=== PATIENT | female | born 1970 | race Caucasian/White ===

== ENCOUNTER 2017-05-09 09:56 | Emergency (ER) | payer BC ==
[2017-05-09] MEDS ORDERED: SODIUM CHLORIDE 0.9% 1,000 ML IV ONE (10:09)
[2017-05-09] MEDS ORDERED: ONDANSETRON 4 MG/2 ML VIAL IVP STA ×2 (10:21→12:59)
[2017-05-09] MEDS ORDERED: HYDROmorphone 1 MG/ML SYRINGE IVP STA ×2 (10:21→11:45)
--- NOTE | 2017-05-09 10:24 | ED Physician Documentation ---
History of Present Illness - Stated complaint Stated Complaint: ABD PAIN - Chief complaint Chief Complaint: Abd Pain - Additonal information Additional information: hx from pt 3 female abrupt onset severe L mid to LLQ pain this AM no fever nausetaed no vomit no ZBM for a few days - did pass small amt of blood LMP ended 05/01 doubts preg as she is s/p tubal ligation psx CS X 2 tubal hx diverticulitis Review of Systems Constitutional: denies: Fever, Chills Throat: denies: Sore throat Cardiac: denies: Chest pain / pressure Respiratory: denies: Dyspnea, Cough GI: reports: Abdominal Pain, Nausea, Bloody / black stool. denies: Vomiting : reports: LMP (ended 05/01) Skin: denies: Rash Musculoskeletal: denies: Neck pain, Back pain Endocrine: denies: Easy bruising / bleeding Immunocompromised: denies: Immunocompromised PD PAST MEDICAL HISTORY - Past Medical History Cardiovascular: None Respiratory: None Neuro: None Endocrine/Autoimmune: None - Past Surgical History Past Surgical History: Yes /[employer]: section - Present Medications Home Medications: Ambulatory Orders Medication Instructions Recorded Confirmed Lidocaine Patch 5% [Lidoderm Patch] 1 each TOP DAILY PRN #10 patch 05/09/17 Ondansetron Odt [Zofran] 4 mg TL Q6H PRN #10 tablet 05/09/17 Oxycodone HCl/Acetaminophen 1 each PO Q6HR PRN #10 tablet 05/09/17 [Percocet 5-325 mg Tablet] - Allergies Allergies/Adverse Reactions: Allergies Allergy/AdvReac Type Severity Reaction Status Date / Time amoxicillin [Amoxicillin] AdvReac Unknown Rash Verified 05/09/17 10:08 Penicillins AdvReac Unknown Rash Verified 05/09/17 10:08 - Social History Does the pt smoke?: No Smoking Status: Never smoker Does the pt drink ETOH?: Yes Does the pt have substance abuse?: No - Immunizations Immunizations are current?: Yes - POLST Patient has POLST: No PD ED PE NORMAL - Vitals Vital signs reviewed: Yes - General General: Alert and oriented X 3, Other (writhing in pain) - HEENT HEENT: PERRL - Neck Neck: Supple, no meningeal sign - Cardiac Cardiac: RRR - Respiratory Respiratory: No respiratory distress, Clear bilaterally - Abdomen Abdomen: Soft, Other (dec BS, soft, severe apin even when not palpating, no pulsatile mass appreciated, no guarding or rebound) - Female Female : Manager Behavior present (Daniela), Other (no dc, no bleed, no CMT, TTP L pelvis but higher than ovary, wet prep sent, no GC chlamydia swabs stocked in [employer] car today) - Derm Derm: Normal color - Extremities Extremities: No deformity - Neuro Neuro: Alert and oriented X 3 Results - Vitals Vitals: Vital Signs - 24 hr 05/09/17 05/09/17 05/09/17 10:06 10:58 12:41 Temperature 36.5 C 36.9 C Heart Rate 68 66 65 Respiratory 20 18 18 Rate Blood Pressure 133/93 H 123/80 122/99 H O2 Saturation 100 99 97 05/09/17 05/09/17 14:32 14:33 Temperature 36.0 C L Heart Rate 59 L 59 L Respiratory 16 16 Rate Blood Pressure 130/81 H 130/81 H O2 Saturation 100 100 Oxygen O2 Source Room air - Labs Labs: Laboratory Tests 05/09/17 05/09/17 05/09/17 10:13 10:13 10:13 WBC 8.1 RBC 4.32 Hgb 14.6 Hct 42.2 MCV 97.6 MCH 33.7 H MCHC 34.5 RDW 12.7 Plt Count 239 MPV 7.4 L Neut # 5.5 Lymph # 1.9 [place] # 0.5 Eos # 0.2 Baso # 0.1 Absolute Nucleated RBC 0.00 Nucleated RBCs 0.0 Sodium 135 Potassium 3.8 Chloride 102 Carbon Dioxide 23 Anion Gap 10.0 BUN 14 Creatinine 0.5 Estimated GFR (MDRD) 132 Glucose 96 Calcium 9.3 Total Bilirubin 0.9 AST 22 ALT 14 Alkaline Phosphatase 47 Total Protein 7.7 Albumin 4.5 Globulin 3.2 Albumin/Globulin Ratio 1.4 Lipase 21 L Serum HCG, Qual NEGATIVE Urine Color Urine Clarity Urine pH Ur Specific [place] Urine Protein Urine Glucose (UA) Urine Ketones Urine Occult Blood Urine Nitrite Urine Bilirubin Urine Urobilinogen Ur Leukocyte Esterase Ur Microscopic Review Urine Culture Comments 05/09/17 14:15 WBC RBC Hgb Hct MCV MCH MCHC RDW Plt Count MPV Neut # Lymph # [place] # Eos # Baso # Absolute Nucleated RBC Nucleated RBCs Sodium Potassium Chloride Carbon Dioxide Anion Gap BUN Creatinine Estimated GFR (MDRD) Glucose Calcium Total Bilirubin AST ALT Alkaline Phosphatase Total Protein Albumin Globulin Albumin/Globulin Ratio Lipase Serum HCG, Qual Urine Color YELLOW Urine Clarity CLEAR Urine pH 7.0 Ur Specific [place] <=1.005 Urine Protein NEGATIVE Urine Glucose (UA) NEGATIVE Urine Ketones >=80 H Urine Occult Blood NEGATIVE Urine Nitrite NEGATIVE Urine Bilirubin NEGATIVE Urine Urobilinogen 0.2 (NORMAL) Ur Leukocyte Esterase NEGATIVE Ur Microscopic Review NOT INDICATED Urine Culture Comments NOT INDICATED - Rads (name of study) CT abd pelvis Radiology: See rad report (diverticulosis without -itis, no other acute process) PD MEDICAL DECISION MAKING - ED course ED course: pain down to 11/03 reviewed results with pt - l labs except dehydration, T neg for diverticultitis hydro perf abscess appy aneurysm etc pt very worried about going home - states pain is aggrevated by even lightly touching her skin I said maybe this is shingles - seveere one sided pain can precede the rash - pt states hx of shingles too plan is to dc with lido patch and small # pain meds and have pt see me or PMD for recheck in next 24-48 hr Departure - Departure Disposition: Home, Self Care Clinical Impression: Abdominal pain Qualifiers: Abdominal location: left lower quadrant Qualified Code(s): R10.32 - Left lower quadrant pain Condition: Good Instructions: ED Abdominal Pain Unkn Cause Follow-Up: Gildardo Mattson MD [Primary Care Provider] - Prescriptions: Oxycodone HCl/Acetaminophen [Percocet 5-325 mg Tablet] 1 each PO Q6HR PRN #10 tablet PRN Reason: Severe Pain Lidocaine Patch 5% [Lidoderm Patch] 1 each TOP DAILY PRN #10 patch PRN Reason: Pain Ondansetron Odt [Zofran] 4 mg TL Q6H PRN #10 tablet PRN Reason: Nausea / Vomiting Comments: All of the tests today came back fine. The urine showed no infection or blood to suggest a kidney stone The blood work including kidney liver and pancreas function was fine. The CT scan showed diverticulosis but no diverticulitis - the CT also did not show any gallstones or kidney stones, no pancreatitis, no aneurysm, no bowel infection/perforation/obstruction, no internal bleeding or free fluid, normal size ovaries I am not sure what is causing the pain But given the extensive and reassuring workup, I do not think you need surgery or admission or antibiotics. I think it is safe for you to go home and to wait and see how the symptoms progress over the next 48 hours It is very possible that over time, new or changing symptoms may develop that lead to a diagnosis not presently apparent. One possibility that can cause severe one sided pain even with lightly touching the skin would be shingles; watch for a red blistering rash which would start on your back and then wrap around to your belly - if that happens see your PMD or come to the ER for viral medication Close follow up with your PMD for a recheck is very important - if you cannot be seen by your PMD for a recheck, come back and see me after 8 PM tomorrow night You can try the lidocaine patches for pain and zofran for the vomiting. I also prescribed some percocet but would like you to minimize taking this because I do not want to mask changing or worsening symptoms with narcotics Forms: Activity restrictions
[2017-05-09] MEDS ORDERED: HYDROmorphone 1 MG/ML SYRINGE ONE ×2 (10:30→12:07)
[2017-05-09] MEDS ORDERED: ONDANSETRON 4 MG/2 ML VIAL ONE ×2 (10:31→13:21)
[2017-05-09] MEDS ORDERED: SODIUM CHLORIDE FLUSH 0.9% 10 ML SYRINGE IVP ONE (10:31)
[2017-05-09 10:34] LABS: BASOPHILS # (AUTO) 0.1 10^3/uL (0.0-0.1); BASOPHILS % (AUTO) 0.6 %; EOSINOPHILS # (AUTO) 0.2 10^3/uL (0.0-0.7); EOSINOPHILS % (AUTO) 1.9 %; HCT - HEMATOCRIT 42.2 % (37.0-47.0); HGB - HEMOGLOBIN 14.6 g/dL (12.0-16.0); LYMPHOCYTES # (AUTO) 1.9 10^3/uL (1.5-3.5); LYMPHOCYTES % (AUTO) 23.9 %; MEAN CORPUSCULAR HEMOGLOBIN 33.7 pg (27.0-31.0); MEAN CORPUSCULAR HGB CONC 34.5 g/dL (32.0-36.0); MEAN CORPUSCULAR VOLUME 97.6 fL (81.0-99.0); MEAN PLATELET VOLUME 7.4 fL (7.9-10.8); MONOCYTES # (AUTO) 0.5 10^3/uL (0.0-1.0); MONOCYTES % (AUTO) 5.9 %; NEUTROPHILS # (AUTO) 5.5 10^3/uL (1.5-6.6); NEUTROPHILS % (AUTO) 67.7 %; RED BLOOD COUNT 4.32 10^6/uL (4.20-5.40); RED CELL DISTRIBUTION WIDTH 12.7 % (12.0-15.0); UNCORRECTED WHITE BLOOD COUNT 8.1 x10^3/uL; WHITE BLOOD COUNT 8.1 x10^3/uL (4.8-10.8)
[2017-05-09 10:45] LABS: ALBUMIN/GLOBULIN RATIO 1.4 (1.0-2.2); BILIRUBIN,TOTAL 0.9 mg/dL (0.2-1.0); CALCIUM 9.3 mg/dL (8.5-10.3); CREATININE 0.5 mg/dL (0.4-1.0); POTASSIUM 3.8 mmol/L (3.5-5.0); TOTAL PROTEIN 7.7 g/dL (6.7-8.2)
--- NOTE | 2017-05-09 13:24 | CT Preliminary Report ---
Exam: CT Abdomen/Pelvis W/ Impression: Normal CT of the appendix. Diverticulosis of the descending and sigmoid colon without evidence of diverticulitis. Atherosclerosis of the distal aorta. [facility] SITE ID: [id number]
--- NOTE | 2017-05-09 13:27 | CT Report ---
EXAM: CT ABDOMEN AND PELVIS EXAM DATE: 05/09/2017 12:30 PM. CLINICAL HISTORY: Abd pain. COMPARISONS: 05/15/2016. TECHNIQUE: Routine helical CT imaging was performed through the abdomen and pelvis. IV contrast: 100 cc of Isovue-300.reconstructions: Coronal and sagittal. In accordance with CT protocol optimization, one or more of the following dose reduction techniques w ere utilized for this exam: automated exposure control, adjustment of mA and/or KV based on patient s ize, or use of iterative reconstructive technique. FINDINGS: The lung bases are without evidence of a mass or infiltrate. The liver is without evidence of an enhancing mass. The lien, pancreas, and adrenal glands are normal in appearance. The kidneys are without evidence of a mass or hydronephrosis. The appendix is normal in appearance. There are no dilated loops of bowel to suggest the presence of an obstruction. Diverticuli are seen involving the descending and sigmoid colon. There is no fat stra nding or fluid collection to suggest the presence of diverticulitis. There is atherosclerosis of the aorta without evidence of an abdominal aortic aneurysm. There are deg enerative changes of the thoracic spine. Impression: Normal CT of the appendix. Diverticulosis of the descending and sigmoid colon without evidence of diverticulitis. Atherosclerosis of the distal aorta. [facility] Referring Provider Line: [phone] SITE ID: [id number]
[2017-05-09 14:29] LABS: BILIRUBIN,URINE NEGATIVE (NEGATIVE)
[2017-05-09 14:30] LABS: UA CHARGE (STRIP ONLY) YES; UR CULTURE IF IND NOT INDICATED
[2017-05-09] MEDS ORDERED: LIDOCAINE PATCH 5% TOP STA (14:52)
[2017-05-09] MEDS ORDERED: oxyCOD/ACETAMIN 5 MG/325 MG TABLET PO STA (14:52)
[2017-05-09] MEDS ORDERED: LIDOCAINE PATCH 5% TOP ONE (15:06)
[2017-05-09] MEDS ORDERED: oxyCOD/ACETAMIN 5 MG/325 MG TABLET PO ONE (15:07)
[2017-05-09 15:57] VITALS: BP 132/70
== END 2017-05-09 15:57 | disposition home or self-care (01) ==
LOC: ED 09:56
DX: R10.32 Left lower quadrant pain (principal)
CPT/HCPCS: 36415; 74177; 80053; 81003; 83690; 84703; 85025; 87210; 87491; 87591; 96374; 96375; 96376; 99284; A9270; J1170; 81001; 87086

== ENCOUNTER 2017-05-10 13:18 | Outpatient (CLI) | payer BC ==
[2017-05-10 13:33] LABS: BASOPHILS # (AUTO) 0.1 10^3/uL (0.0-0.1); BASOPHILS % (AUTO) 0.8 %; EOSINOPHILS # (AUTO) 0.2 10^3/uL (0.0-0.7); EOSINOPHILS % (AUTO) 2.1 %; HCT - HEMATOCRIT 42.5 % (37.0-47.0); HGB - HEMOGLOBIN 14.4 g/dL (12.0-16.0); LYMPHOCYTES # (AUTO) 2.7 10^3/uL (1.5-3.5); LYMPHOCYTES % (AUTO) 35.6 %; MEAN CORPUSCULAR HEMOGLOBIN 33.7 pg (27.0-31.0); MEAN CORPUSCULAR VOLUME 99.1 fL (81.0-99.0); MEAN PLATELET VOLUME 7.4 fL (7.9-10.8); MONOCYTES # (AUTO) 0.6 10^3/uL (0.0-1.0); MONOCYTES % (AUTO) 7.6 %; NEUTROPHILS # (AUTO) 4.2 10^3/uL (1.5-6.6); NEUTROPHILS % (AUTO) 53.9 %; RED BLOOD COUNT 4.29 10^6/uL (4.20-5.40); RED CELL DISTRIBUTION WIDTH 12.7 % (12.0-15.0); UNCORRECTED WHITE BLOOD COUNT 7.7 x10^3/uL; WHITE BLOOD COUNT 7.7 x10^3/uL (4.8-10.8)
[2017-05-10 14:08] LABS: ALBUMIN/GLOBULIN RATIO 1.3 (1.0-2.2); BILIRUBIN,TOTAL 1.3 mg/dL (0.2-1.0); CALCIUM 9.2 mg/dL (8.5-10.3); CREATININE 0.6 mg/dL (0.4-1.0); POTASSIUM 3.6 mmol/L (3.5-5.0); TOTAL PROTEIN 7.4 g/dL (6.7-8.2)
== END 2017-05-10 13:19 | disposition home or self-care (01) ==
LOC: LAB 13:18
PROVIDERS: ATTEND Family Medicine
DX: K59.00 Constipation, unspecified (principal); R10.32 Left lower quadrant pain
CPT/HCPCS: 36415; 80053; 85025

== ENCOUNTER 2017-05-11 10:22 | Outpatient (CLI) | payer BC | END 2017-05-11 10:23 | disposition home or self-care (01) | LOC: LAB.WCP 10:22 | PROVIDERS: ATTEND Physician Assistant Medical | DX: R31.9 Hematuria, unspecified (principal) | CPT/HCPCS: 87086 ==

== ENCOUNTER 2018-09-01 09:29 | Emergency (ER) | payer BC ==
[2018-09-01] MEDS ORDERED: SODIUM CHLORIDE 0.9% 1,000 ML IV ONE (09:55)
[2018-09-01] MEDS ORDERED: fentaNYL 100 MCG/2 ML VIAL IVP STA (09:55)
[2018-09-01] MEDS ORDERED: ONDANSETRON 4 MG/2 ML VIAL IVP STA (09:55)
--- NOTE | 2018-09-01 10:01 | ED Physician Documentation ---
PD HPI ABD PAIN - Stated complaint Stated Complaint: STOMACH PX - Chief complaint Chief Complaint: Abd Pain - History obtained from History obtained from: Patient - History of Present Illness Timing - onset: How many days ago (2) Timing - duration: Days (2) Timing - details: Still present Quality: Pain Location: Other (lower abdomen) Associated symptoms: Nausea, Constipation (No BM for the past two days.). No: Fever, Vomiting, Diarrhea Similar symptoms before: Diagnosis (History of diverticulitis---this feels similar.) - Additional information Additional information: The patient is a 48-year-old female who presents with lower abdominal pain that started 2 days ago and has become progressively worse. She reports associated nausea, without vomiting. She denies fever, dysuria, or diarrhea. She has had no bowel movement for the past 2 days. She reports history of similar symptoms with diverticulitis about 2 years ago. She also has history of kidney stones, but this does not feel like that pain. Surgical history is significant for bilateral tubal ligation. Review of Systems Constitutional: denies: Fever Nose: denies: Congestion Throat: denies: Sore throat Cardiac: denies: Chest pain / pressure Respiratory: denies: Dyspnea, Cough GI: reports: Abdominal Pain, Nausea, Constipation. denies: Vomiting, Diarrhea : reports: Control (S/P BTL). 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 - Present Medications Home Medications: Ambulatory Orders Medication Instructions Recorded Confirmed Lidocaine Patch 5% [Lidoderm Patch] 1 each TOP DAILY PRN #10 patch 05/09/17 Ondansetron Odt [Zofran] 4 mg TL Q6H PRN #10 tablet 05/09/17 Oxycodone HCl/Acetaminophen 1 each PO Q6HR PRN #10 tablet 05/09/17 [Percocet 5-325 mg Tablet] Ciprofloxacin HCl [Cipro] 500 mg PO BID #20 tablet 09/01/18 Oxycodone HCl/Acetaminophen 1 - 2 each PO Q6H PRN #14 tablet 09/01/18 [Percocet 5-325 mg Tablet] Promethazine [Phenergan] 25 mg PO Q6H PRN #10 tab 09/01/18 metroNIDAZOLE [Metronidazole] 500 mg PO BID #20 tablet 09/01/18 - Allergies Allergies/Adverse Reactions: Allergies Allergy/AdvReac Type Severity Reaction Status Date / Time amoxicillin [Amoxicillin] AdvReac Unknown Rash Verified 09/01/18 09:41 Penicillins AdvReac Unknown Rash Verified 09/01/18 09:41 - Social History Does the pt smoke?: No Smoking Status: Never smoker Does the pt drink ETOH?: Yes Does the pt have substance abuse?: No - Immunizations Immunizations are current?: Yes - POLST Patient has POLST: No PD ED PE NORMAL - Vitals Vital signs reviewed: Yes (Diastolic hypertension initially.) - General General: Alert and oriented X 3, Well developed/nourished, Other (Appears uncomfortable.) - HEENT HEENT: Atraumatic, Pharynx benign - Neck Neck: No adenopathy, No JVD - Cardiac Cardiac: RRR, No murmur - Respiratory Respiratory: No respiratory distress, Clear bilaterally - Abdomen Abdomen: Normal bowel sounds, Soft, Other (Tenderness to palpation in the suprapubic region and left lower quadrant, without rebound tenderness or guarding.) - Back Back: No CVA TTP - Derm Derm: No rash - Extremities Extremities: No edema, No calf tenderness / cord - Neuro Neuro: Alert and oriented X 3, No motor deficit, Normal speech Results - Vitals Vitals: Vital Signs - 24 hr 09/01/18 09:37 Temperature 35.6 C L Heart Rate 76 Respiratory 16 Rate Blood Pressure 122/107 H O2 Saturation 99 Oxygen O2 Source Room air - Labs Labs: Laboratory Tests 09/01/18 09/01/18 09/01/18 09:40 10:05 10:05 WBC 11.6 H RBC 4.59 Hgb 15.7 Hct 45.1 MCV 98.1 MCH 34.2 H MCHC 34.9 RDW 13.2 Plt Count 221 MPV 7.1 L Neut # (Auto) 9.7 H Lymph # (Auto) 1.1 L [place] # (Auto) 0.7 Eos # (Auto) 0.1 Baso # (Auto) 0.0 Absolute Nucleated RBC 0.00 Nucleated RBC % 0.0 Sodium 133 L Potassium 3.6 Chloride 101 Carbon Dioxide 20 L Anion Gap 12.0 BUN 11 Creatinine 0.5 Estimated GFR (MDRD) 131 Glucose 108 H Calcium 9.4 Total Bilirubin 1.9 H AST 19 ALT 14 Alkaline Phosphatase 73 Total Protein 8.9 H Albumin 4.4 Globulin 4.6 H Albumin/Globulin Ratio 1.0 Lipase 26 Urine Color YELLOW Urine Clarity CLEAR Urine pH 6.0 Ur Specific [place] 1.020 Urine Protein NEGATIVE Urine Glucose (UA) NEGATIVE Urine Ketones >=80 H Urine Occult Blood TRACE-INTA Urine Nitrite NEGATIVE Urine Bilirubin NEGATIVE Urine Urobilinogen 0.2 (NORMAL) Ur Leukocyte Esterase NEGATIVE Ur Microscopic Review NOT INDICATED Urine Culture Comments NOT INDICATED Urine HCG, Qual NEGATIVE - Rads (name of study) CT abd/pelvis w/IV contrast Radiology: Prelim report reviewed, EMP read contemporaneously, See rad report (Colonic diverticulosis with wall thickening and pericolonic stranding in the sigmoid colon (axial image 61). No free air or fluid collection to suggest perforation or abscess. Trace free fluid in the pelvis, likely reactive. No evidence for small bowel obstruction. Normal-appearing appendix is seen in the right lower quadrant.) PD MEDICAL DECISION MAKING - ED course Complexity details: reviewed old records, reviewed results, re-evaluated patient, considered differential, d/w patient ED course: The patient's presentation is most consistent with acute diverticulitis. This is a recurrent episode. CT scan of the abdomen and pelvis reveals no evidence of abscess formation or bowel perforation. Treatment in the emergency department included administration of normal saline 1 L IV, Zofran 4 mg IV, fentanyl 50 mcg IV, metronidazole 500 mg IV, and ciprofloxacin 400 mg IV. Prior to discharge a tablet of oxycodone, 5 mg is administered orally. She is being discharged with prescriptions for metronidazole and ciprofloxacin, as well as Percocet. I discussed with her the expected course of illness, antibiotic treatment and outpatient follow-up, as well as potentially worrisome signs or symptoms that should prompt reevaluation in the emergency department. Departure - Departure Disposition: 01 Home, Self Care Clinical Impression: Diverticulitis of gastrointestinal tract Condition: Stable Instructions: ED Diverticulitis Follow-Up: Destini Mcgill ARNP [Primary Care Provider] - Prescriptions: Ciprofloxacin HCl [Cipro] 500 mg PO BID #20 tablet metroNIDAZOLE [Metronidazole] 500 mg PO BID #20 tablet Oxycodone HCl/Acetaminophen [Percocet 5-325 mg Tablet] 1 - 2 each PO Q6H PRN #14 tablet PRN Reason: pain Promethazine [Phenergan] 25 mg PO Q6H PRN #10 tab PRN Reason: Nausea / Vomiting Comments: Take metronidazole and ciprofloxacin twice daily as prescribed. You can use Phenergan as prescribed if needed for nausea. You can use Percocet as prescribed if needed for pain. Follow-up with your primary physician within 1-2 weeks. Call to schedule appointment. Return to the emergency department if you develop increasing abdominal pain, persistent vomiting, or otherwise worsening symptoms Forms: Activity restrictions
[2018-09-01 10:09] LABS: BILIRUBIN,URINE NEGATIVE (NEGATIVE); GLUCOSE, URINE (UA) NEGATIVE (NEGATIVE); KETONES,URINE (UA) >=80 mg/dL (NEGATIVE); LEUKOCYTE ESTERASE, URINE NEGATIVE (NEGATIVE); NITRITE,URINE NEGATIVE (NEGATIVE); OCCULT BLOOD,URINE TRACE-INTA (NEGATIVE); PROTEIN,URINE NEGATIVE (NEGATIVE); UROBILINOGEN,URINE 0.2 (NORMAL) E.U./dL (NORMAL)
[2018-09-01 10:12] LABS: CLARITY,URINE CLEAR (CLEAR)
[2018-09-01 10:13] LABS: HCG UR QUAL NEGATIVE
[2018-09-01 10:15] LABS: BASOPHILS % (AUTO) 0.3 %; EOSINOPHILS # (AUTO) 0.1 10^3/uL (0.0-0.7); EOSINOPHILS % (AUTO) 1.1 %; HGB - HEMOGLOBIN 15.7 g/dL (12.0-16.0); LYMPHOCYTES # (AUTO) 1.1 10^3/uL (1.5-3.5); LYMPHOCYTES % (AUTO) 9.4 %; MEAN CORPUSCULAR HEMOGLOBIN 34.2 pg (27.0-31.0); MEAN CORPUSCULAR HGB CONC 34.9 g/dL (32.0-36.0); MEAN CORPUSCULAR VOLUME 98.1 fL (81.0-99.0); MEAN PLATELET VOLUME 7.1 fL (7.9-10.8); MONOCYTES # (AUTO) 0.7 10^3/uL (0.0-1.0); MONOCYTES % (AUTO) 5.6 %; NEUTROPHILS # (AUTO) 9.7 10^3/uL (1.5-6.6); NEUTROPHILS % (AUTO) 83.6 %; PLT - PLATELET COUNT 221 10^3/uL (130-450); RED BLOOD COUNT 4.59 10^6/uL (4.20-5.40); RED CELL DISTRIBUTION WIDTH 13.2 % (12.0-15.0); WHITE BLOOD COUNT 11.6 x10^3/uL (4.8-10.8)
[2018-09-01] MEDS ORDERED: IOVERSOL 320 100 ML VIAL IVP ONE ×2 (10:21→10:45)
[2018-09-01 10:25] LABS: ALBUMIN 4.4 g/dL (3.2-5.5); BILIRUBIN,TOTAL 1.9 mg/dL (0.2-1.0); CALCIUM 9.4 mg/dL (8.5-10.3); CREATININE 0.5 mg/dL (0.4-1.0); TOTAL PROTEIN 8.9 g/dL (6.7-8.2)
--- NOTE | 2018-09-01 11:09 | CT Report ---
Reason: LLQ abd. pain; h/o diverticulitis Procedure Date: 09/01/2018 Accession Number: [id number] / [id number] Procedure: CT - Abdomen/Pelvis W/ CPT Code: FULL RESULT: EXAM: CT ABDOMEN AND PELVIS EXAM DATE: 09/01/2018 10:36 AM. CLINICAL HISTORY: LLQ abd. pain; h/o diverticulitis. COMPARISONS: ABDOMEN/PELVIS W/ 05/09/2017 12:29 PM ABDOMEN/PELVIS W/ 09/30/2015 4:14 PM. TECHNIQUE: Routine helical CT imaging was performed through the abdomen and pelvis. IV contrast: OPTI 320 100mL. Enteric contrast: No. Reconstructions: Coronal and sagittal. In accordance with CT protocol optimization, one or more of the following dose reduction techniques were utilized for this exam: automated exposure control, adjustment of mA and/or KV based on patient size, or use of iterative reconstructive technique. FINDINGS: Lung Bases: Unremarkable. Liver: No masses. Gallbladder/Bile Ducts: Unremarkable. Spleen: Unremarkable. Pancreas: The pancreas enhances homogeneously. No peripancreatic stranding or focal fluid collections. Adrenal Glands: Unremarkable. Kidneys: Hypodense lesions in the right kidney, suggestive of cysts are too small to characterize. Unremarkable left kidney. Peritoneal Cavity/Bowel: No evidence for small bowel obstruction. A normal-appearing appendix is seen in the right lower quadrant. Colonic diverticulosis with wall thickening and pericolonic stranding in the sigmoid colon (axial image 61). No free air or focal fluid collection to suggest perforation or abscess. Trace free fluid in the pelvis, likely reactive. Pelvic Organs: The bladder and visualized pelvic organs are unremarkable. Vasculature: No aneurysms or other significant abnormality. Bones: No significant abnormality. Other: None. IMPRESSION: Sigmoid diverticulitis. Trace free fluid in the pelvis. [facility]
[2018-09-01] MEDS ORDERED: metroNIDAZOLE 500 MG/100 ML 500 MG/100 ML BAG IV ONE (11:30)
[2018-09-01] MEDS ORDERED: CIPROFLOXACIN 400 MG/200 ML 200 ML IV ONE (11:30)
[2018-09-01] MEDS ORDERED: oxyCODONE 5 MG TABLET PO STA (12:13)
[2018-09-01 12:55] VITALS: BP 117/88
== END 2018-09-01 13:08 | disposition home or self-care (01) ==
LOC: ED 09:29
DX: K57.32 Diverticulitis of large intestine without perforation or abscess without bleeding (principal); Z98.51 Tubal ligation status; Z87.442 Personal history of urinary calculi
CPT/HCPCS: 36415; 74177; 80053; 81003; 81025; 83690; 85025; 96361; 96365; 96368; 96375; 99283; 99284; A9270; Q9967; 81001; 87086

== ENCOUNTER 2019-01-21 20:36 | Emergency (ER) | payer BC ==
[2019-01-21] MEDS ORDERED: SODIUM CHLORIDE 0.9% 1,000 ML IV ONE (20:43)
[2019-01-21] MEDS ORDERED: ONDANSETRON 4 MG/2 ML VIAL IVP STA (20:43)
[2019-01-21] MEDS ORDERED: fentaNYL 100 MCG/2 ML VIAL IVP STA (20:44)
--- NOTE | 2019-01-21 20:46 | ED Physician Documentation ---
History of Present Illness - Stated complaint Stated Complaint: AB PX - History obtained from History obtained from: Patient - Additonal information Additional information: Patient is a 48-year-old female with history of nephrolithiasis and diverticulitis presenting with several hours of suprapubic tenderness. Patient also reports soreness to the low back bilaterally, as well as nausea. She denies vomiting, fever, but admits to constipation and incomplete bladder emptying without dysuria, hematuria. Patient denies new vaginal bleeding or other vaginal complaints, Although she describes discomfort being similar to menstrual cramps.Patient denies symptoms being similar to previous episodes of kidney stones or diverticulitis. No other improving or worsening factors noted. 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 - Present Medications Home Medications: Ambulatory Orders Medication Instructions Recorded Confirmed Ciprofloxacin HCl [Cipro] 500 mg PO BID #14 tablet 01/21/19 Phenazopyridine HCl [Pyridium] 200 mg PO TID PRN #6 tablet 01/21/19 - Allergies Allergies/Adverse Reactions: Allergies Allergy/AdvReac Type Severity Reaction Status Date / Time amoxicillin [Amoxicillin] AdvReac Unknown Rash Verified 01/21/19 21:05 Penicillins AdvReac Unknown Rash Verified 01/21/19 21:05 - Social History Does the pt smoke?: No Smoking Status: Never smoker Does the pt drink ETOH?: Yes Does the pt have substance abuse?: No - Immunizations Immunizations are current?: Yes - POLST Patient has POLST: No PD ED PE NORMAL - Vitals Vital signs reviewed: Yes - General General: Alert and oriented X 3, No acute distress, Well developed/nourished - HEENT HEENT: Atraumatic, Moist mucous membranes - Cardiac Cardiac: RRR, No murmur - Respiratory Respiratory: No respiratory distress, Clear bilaterally - Abdomen Abdomen: Normal bowel sounds, Soft, Non distended. No: Non tender (Moderate suprapubic tenderness without guarding or rebound.) - Back Back: No: No CVA TTP (Extremely mild bilateral tenderness) - Derm Derm: Normal color, Warm and dry, No rash - Extremities Extremities: No deformity, No tenderness to palpate - Neuro Neuro: Alert and oriented X 3, No motor deficit, No sensory deficit - Psych Psych: Normal mood, Normal affect Results - Vitals Vitals: Vital Signs - 24 hr 01/21/19 20:40 Temperature 36.6 C Heart Rate 94 Respiratory 18 Rate Blood Pressure 154/96 H O2 Saturation 100 Oxygen O2 Source Room air - Labs Labs: Laboratory Tests 01/21/19 01/21/19 01/21/19 20:50 20:50 20:50 WBC 9.1 RBC 4.31 Hgb 14.6 Hct 42.7 MCV 99.1 H MCH 33.9 H MCHC 34.3 RDW 12.7 Plt Count 244 MPV 7.1 L Neut # (Auto) 6.5 Lymph # (Auto) 1.8 [place] # (Auto) 0.6 Eos # (Auto) 0.2 Baso # (Auto) 0.0 Absolute Nucleated RBC 0.01 Nucleated RBC % 0.2 Sodium 133 L Potassium 3.1 L Chloride 104 Carbon Dioxide 21 Anion Gap 8.0 BUN 13 Creatinine 0.7 Estimated GFR (MDRD) 89 Glucose 140 H Calcium 9.0 Total Bilirubin 0.7 AST 24 ALT 21 Alkaline Phosphatase 51 Total Protein 7.4 Albumin 4.0 Globulin 3.4 Albumin/Globulin Ratio 1.2 Lipase 92 H Urine Color YELLOW Urine Clarity CLEAR Urine pH 5.5 Ur Specific [place] 1.025 Urine Protein NEGATIVE Urine Glucose (UA) NEGATIVE Urine Ketones 15 H Urine Occult Blood NEGATIVE Urine Nitrite POSITIVE H Urine Bilirubin NEGATIVE Urine Urobilinogen 0.2 (NORMAL) Ur Leukocyte Esterase NEGATIVE Urine RBC None Seen Urine WBC 0-3 Ur Squamous Epith Cells FEW Squamous Urine Crystals 6-10 Calcium Oxalate Urine Bacteria Rare Urine Mucus Moderate Strands Ur Microscopic Review INDICATED Urine Culture Comments INDICATED PD MEDICAL DECISION MAKING - ED course Complexity details: reviewed old records, reviewed results, re-evaluated patient, considered differential, d/w patient ED course: Most concerning for UTI given patient's location of discomfort, consolation of symptoms, and physical exam findings. Patient had mild bilateral CVA tenderness which is more likely low back strain as opposed to kidney pain, but did consider nephrolithiasis and pyelonephritis, especially given history of kidney stones.Given location and quality of discomfort have lower suspicion for gallbladder disease, pancreatitis, appendicitis, diverticulitis, AAA, small bowel obstruction, but considered. Also have low suspicion for and other pelvic etiologies as patient has had tubal ligation and denies new vaginal bleeding or other vaginal complaints.Patient started on IV fluids, as well as pain and nausea medication. Screening lab work and urinalysis ordered.Screening lab work returned relatively unremarkable including no significant leukocytosis, acute kidney injury, electrolyte disturbance. Urinalysis questionable for infection and given patient's clinical findings, feel most appropriate to treat as such. Patient had minimal improvement of pain with fentanyl and also received Toradol and Pyridium. Patient received first dose of antibiotic in the ED, but otherwise feel that she is safe to discharge home with antibiotics and Pyridium, as well as strict return precautions, supportive cares, and appropriate follow-up. Departure - Departure Disposition: Home, Self Care Clinical Impression: Urinary tract infection Qualifiers: Urinary tract infection type: site unspecified Hematuria presence: without hematuria Qualified Code(s): N39.0 - Urinary tract infection, site not specified Condition: Good Instructions: ED UTI Cystitis Female Follow-Up: Destini Mcgill ARNP [Primary Care Provider] - Within 3 Days Prescriptions: Ciprofloxacin HCl [Cipro] 500 mg PO BID #14 tablet Phenazopyridine HCl [Pyridium] 200 mg PO TID PRN #6 tablet PRN Reason: dysuria Comments: Please use antibiotics and Pyridium for treatment of bladder infection as instructed. Recommend hydration, healthy diet, rest, and follow-up with your primary care physician in next 2 to 3 days. Please return to ED sooner if experience worsening symptoms or other concerns.
[2019-01-21 20:59] LABS: BASOPHILS % (AUTO) 0.3 %; EOSINOPHILS # (AUTO) 0.2 10^3/uL (0.0-0.7); EOSINOPHILS % (AUTO) 2.3 %; HGB - HEMOGLOBIN 14.6 g/dL (12.0-16.0); LYMPHOCYTES # (AUTO) 1.8 10^3/uL (1.5-3.5); LYMPHOCYTES % (AUTO) 19.8 %; MEAN CORPUSCULAR HEMOGLOBIN 33.9 pg (27.0-31.0); MEAN CORPUSCULAR HGB CONC 34.3 g/dL (32.0-36.0); MEAN CORPUSCULAR VOLUME 99.1 fL (81.0-99.0); MEAN PLATELET VOLUME 7.1 fL (7.9-10.8); MONOCYTES # (AUTO) 0.6 10^3/uL (0.0-1.0); MONOCYTES % (AUTO) 6.7 %; NEUTROPHILS # (AUTO) 6.5 10^3/uL (1.5-6.6); NEUTROPHILS % (AUTO) 70.9 %; PLT - PLATELET COUNT 244 10^3/uL (130-450); RED BLOOD COUNT 4.31 10^6/uL (4.20-5.40); RED CELL DISTRIBUTION WIDTH 12.7 % (12.0-15.0); WHITE BLOOD COUNT 9.1 x10^3/uL (4.8-10.8)
[2019-01-21 21:11] LABS: ALBUMIN/GLOBULIN RATIO 1.2 (1.0-2.2); BILIRUBIN,TOTAL 0.7 mg/dL (0.2-1.0); BILIRUBIN,URINE NEGATIVE (NEGATIVE); CREATININE 0.7 mg/dL (0.4-1.0); GLUCOSE, URINE (UA) NEGATIVE (NEGATIVE); KETONES,URINE (UA) 15 mg/dL (NEGATIVE); LEUKOCYTE ESTERASE, URINE NEGATIVE (NEGATIVE); NITRITE,URINE POSITIVE (NEGATIVE); OCCULT BLOOD,URINE NEGATIVE (NEGATIVE); PH,URINE 5.5 PH (5.0-7.5); PROTEIN,URINE NEGATIVE (NEGATIVE); TOTAL PROTEIN 7.4 g/dL (6.7-8.2); UROBILINOGEN,URINE 0.2 (NORMAL) E.U./dL (NORMAL)
[2019-01-21 21:12] LABS: CLARITY,URINE CLEAR (CLEAR)
[2019-01-21] MEDS ORDERED: PHENAZOPYRIDINE 100 MG TABLET PO STA (21:26)
[2019-01-21] MEDS ORDERED: KETOROLAC 30 MG/ML VIAL IVP STA (21:26)
[2019-01-21 21:27] LABS: BACTERIA,URINE Rare /HPF (None Seen); CRYSTALS,URINE 6-10 Calcium Oxalate /LPF; MUCUS,URINE Moderate Strands; RBC,URINE None Seen /HPF (0-5); SQUAMOUS EPITHELIAL CELL,UR FEW Squamous (<= Few)
[2019-01-21] MEDS ORDERED: CIPROFLOXACIN 250 MG TABLET PO STA (21:32)
[2019-01-21 21:58] VITALS: BP 141/92
== END 2019-01-21 22:03 | disposition home or self-care (01) ==
LOC: ED 20:36
DX: N39.0 Urinary tract infection, site not specified (principal)
CPT/HCPCS: 36415; 80053; 81001; 83690; 85025; 87086; 96374; 96375; 99283; A9270; 81003

== ENCOUNTER 2019-09-06 14:23 | Inpatient (IN) | payer BC ==
[2019-09-06 15:06] LABS: BASOPHILS # (AUTO) 0.1 10^3/uL (0.0-0.1); BASOPHILS % (AUTO) 0.6 %; EOSINOPHILS # (AUTO) 0.2 10^3/uL (0.0-0.7); EOSINOPHILS % (AUTO) 2.2 %; HGB - HEMOGLOBIN 15.3 g/dL (12.0-16.0); LYMPHOCYTES # (AUTO) 2.1 10^3/uL (1.5-3.5); LYMPHOCYTES % (AUTO) 23.5 %; MEAN CORPUSCULAR HEMOGLOBIN 34.5 pg (27.0-31.0); MEAN CORPUSCULAR HGB CONC 33.8 g/dL (32.0-36.0); MEAN CORPUSCULAR VOLUME 101.8 fL (81.0-99.0); MEAN PLATELET VOLUME 8.6 fL (7.9-10.8); MONOCYTES # (AUTO) 0.6 10^3/uL (0.0-1.0); NEUTROPHILS # (AUTO) 5.8 10^3/uL (1.5-6.6); NEUTROPHILS % (AUTO) 66.4 %; PLT - PLATELET COUNT 344 10^3/uL (130-450); RED BLOOD COUNT 4.44 10^6/uL (4.20-5.40); RED CELL DISTRIBUTION WIDTH 12.4 % (12.0-15.0); WHITE BLOOD COUNT 8.7 x10^3/uL (4.8-10.8)
[2019-09-06 15:19] LABS: ALBUMIN 3.9 g/dL (3.2-5.5); CALCIUM 9.5 mg/dL (8.5-10.3); CREATININE 0.6 mg/dL (0.4-1.0)
[2019-09-06 15:34] LABS: GLUCOSE, URINE (UA) NEGATIVE (NEGATIVE); KETONES,URINE (UA) 40 mg/dL (NEGATIVE); LEUKOCYTE ESTERASE, URINE NEGATIVE (NEGATIVE); NITRITE,URINE NEGATIVE (NEGATIVE); OCCULT BLOOD,URINE TRACE-INTA (NEGATIVE); PROTEIN,URINE NEGATIVE (NEGATIVE); UROBILINOGEN,URINE 0.2 (NORMAL) E.U./dL (NORMAL)
[2019-09-06 15:42] LABS: BILIRUBIN,URINE SMALL (NEGATIVE); CLARITY,URINE HAZY (CLEAR); ICTOTEST,URINE POSITIVE
[2019-09-06 15:43] LABS: HCG UR QUAL NEGATIVE
[2019-09-06 15:48] LABS: RBC,URINE 0-5 /HPF (0-5); SQUAMOUS EPITHELIAL CELL,UR FEW Squamous (<= Few)
[2019-09-06 15:49] LABS: BACTERIA,URINE Few /HPF (None Seen); MUCUS,URINE Moderate Strands
[2019-09-06] MEDS ORDERED: KETOROLAC 30 MG/ML VIAL IVP STA (16:00)
[2019-09-06] MEDS ORDERED: SODIUM CHLORIDE 0.9% 1,000 ML IV ONE (16:00)
--- NOTE | 2019-09-06 16:03 | ED Physician Documentation ---
PD HPI ABD PAIN - Stated complaint Stated Complaint: LOWER ABD PX - Chief complaint Chief Complaint: Abd Pain - History obtained from History obtained from: Patient - History of Present Illness Timing - onset: How many weeks ago (1) Timing - duration: Weeks (1) Timing - details: Gradual onset Pain level max: 8 Pain level now: 6 Quality: Aching, Pain Location: LLQ Radiation: No: Chest, , Lower back, Left flank, Left shoulder, Right flank, Right shoulder, Upper back Improved by: Laying still Worsened by: Moving, Position Associated symptoms: Nausea, Constipation (No bowel movement for 4 days). No: Fever, Vomiting, Hematemesis, Diarrhea, Melena, Hematochezia, Dysuria, Hematuria Similar symptoms before: Diagnosis (Diverticulitis) - Additional information Additional information: Patient with left lower quadrant abdominal pain for the past week. Worse with movement and better with rest. No bowel movement x4 days. She is concerned about a diverticulitis flare. No fevers. No vomiting. 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 - Allergies Allergies/Adverse Reactions: Allergies Allergy/AdvReac Type Severity Reaction Status Date / Time amoxicillin [Amoxicillin] AdvReac Unknown Rash Verified 01/21/19 21:05 Penicillins AdvReac Unknown Rash Verified 01/21/19 21:05 - Social History Does the pt smoke?: No Smoking Status: Never smoker Does the pt drink ETOH?: Yes Does the pt have substance abuse?: No - Immunizations Immunizations are current?: Yes - POLST Patient has POLST: No PD ED PE NORMAL - Vitals Vital signs reviewed: Yes - General General: Alert and oriented X 3, No acute distress, Well developed/nourished - HEENT HEENT: PERRL, Moist mucous membranes - Neck Neck: Supple, no meningeal sign - Cardiac Cardiac: RRR, Strong equal pulses - Respiratory Respiratory: No respiratory distress, Clear bilaterally - Abdomen Abdomen: Normal bowel sounds, Soft, Non distended, Other (Tender palpation left lower quadrant. No peritoneal signs.) - Back Back: No CVA TTP, No spinal TTP - Derm Derm: Warm and dry - Extremities Extremities: No edema - Neuro Neuro: Alert and oriented X 3 - Psych Psych: Normal mood, Normal affect Results - Vitals Vitals: Vital Signs - 24 hr 09/06/19 14:48 Temperature 36.8 C Heart Rate 78 Respiratory 18 Rate Blood Pressure 119/87 H O2 Saturation 99 Oxygen O2 Source Room air - Labs Labs: Laboratory Tests 09/06/19 09/06/19 09/06/19 15:00 15:00 15:25 WBC 8.7 RBC 4.44 Hgb 15.3 Hct 45.2 MCV 101.8 H MCH 34.5 H MCHC 33.8 RDW 12.4 Plt Count 344 MPV 8.6 Neut # (Auto) 5.8 Lymph # (Auto) 2.1 [place] # (Auto) 0.6 Eos # (Auto) 0.2 Baso # (Auto) 0.1 Absolute Nucleated RBC 0.00 Nucleated RBC % 0.0 Sodium 135 Potassium 3.8 Chloride 101 Carbon Dioxide 24 Anion Gap 10.0 BUN 9 Creatinine 0.6 Estimated GFR (MDRD) 106 Glucose 110 H Calcium 9.5 Total Bilirubin 1.0 AST 21 ALT 14 Alkaline Phosphatase 66 Total Protein 8.0 Albumin 3.9 Globulin 4.1 Albumin/Globulin Ratio 1.0 Lipase 27 Urine Color YELLOW Urine Clarity HAZY Urine pH 6.0 Ur Specific [place] 1.025 Urine Protein NEGATIVE Urine Glucose (UA) NEGATIVE Urine Ketones 40 H Urine Occult Blood TRACE-INTA Urine Nitrite NEGATIVE Urine Bilirubin SMALL H Urine Urobilinogen 0.2 (NORMAL) Ur Leukocyte Esterase NEGATIVE Urine RBC 0-5 Urine WBC 0-3 Ur Squamous Epith Cells FEW Squamous Urine Bacteria Few Urine Mucus Moderate Strands Ur Microscopic Review INDICATED Urine Culture Comments NOT INDICATED Urine HCG, Qual 09/06/19 15:25 WBC RBC Hgb Hct MCV MCH MCHC RDW Plt Count MPV Neut # (Auto) Lymph # (Auto) [place] # (Auto) Eos # (Auto) Baso # (Auto) Absolute Nucleated RBC Nucleated RBC % Sodium Potassium Chloride Carbon Dioxide Anion Gap BUN Creatinine Estimated GFR (MDRD) Glucose Calcium Total Bilirubin AST ALT Alkaline Phosphatase Total Protein Albumin Globulin Albumin/Globulin Ratio Lipase Urine Color Urine Clarity Urine pH Ur Specific [place] 1.025 Urine Protein Urine Glucose (UA) Urine Ketones Urine Occult Blood Urine Nitrite Urine Bilirubin Urine Urobilinogen Ur Leukocyte Esterase Urine RBC Urine WBC Ur Squamous Epith Cells Urine Bacteria Urine Mucus Ur Microscopic Review Urine Culture Comments Urine HCG, Qual NEGATIVE - Rads (name of study) CT abd/pelvis Radiology: Prelim report reviewed, EMP read contemporaneously, See rad report (Interval development of ill-defined mildly rim-enhancing fluid collection involving the posterior wall of the proximal to mid sigmoid measuring 1.0 x 1.5 x 2.7 cm suggesting early diverticular abscess. Sigmoid wall thickening and pericolonic stranding again present as seen previously. ) PD MEDICAL DECISION MAKING - ED course Complexity details: reviewed results, re-evaluated patient, considered differential, d/w patient, d/w financial consultant ED course: 49-year-old female presents to the emergency department with diverticulitis and an intra-abdominal abscess. Discussed the case with Dr. Arvizu, general surgery on-call who will consult. Will place her on IV antibiotics and admit to the hospitalist. Discussed with Dr. Veliz, hospitalist who accepts. Patient is well-appearing, nontoxic. Afebrile. This document was made in part using voice recognition software. While efforts are made to proofread this document, sound alike and grammatical errors may occur. Departure - Departure Disposition: 66 [facility] DC/Xfer Clinical Impression: Diverticulitis, Intra-abdominal abscess Condition: Stable Discharge Date/Time: 09/06/19 18:18
[2019-09-06] MEDS ORDERED: IOVERSOL 320 100 ML VIAL IVP ONE ×2 (16:07→16:58)
--- NOTE | 2019-09-06 16:57 | CT Report ---
Reason: LLQ abd pain Procedure Date: 09/06/2019 Accession Number: [id number] / [id number] Procedure: CT - Abdomen/Pelvis W CPT Code: Final Report FULL RESULT: EXAM: CT ABDOMEN AND PELVIS EXAM DATE: 09/06/2019 04:31 PM. CLINICAL HISTORY: Left lower quadrant abdominal pain. COMPARISONS: ABDOMEN/PELVIS W/ 09/01/2018 10:25 AM. TECHNIQUE: Routine helical CT imaging was performed through the abdomen and pelvis. IV contrast: OPTI 320 90ML. Enteric contrast: No. Reconstructions: Coronal and sagittal. In accordance with CT protocol optimization, one or more of the following dose reduction techniques were utilized for this exam: automated exposure control, adjustment of mA and/or KV based on patient size, or use of iterative reconstructive technique. FINDINGS: Lung Bases: Unremarkable. Liver: Normal. No masses. Gallbladder/Bile Ducts: Unremarkable. Spleen: Normal. Pancreas: Normal. Adrenal Glands: Normal. Kidneys: 2 right renal simple cysts are again present unchanged. No calculi or hydronephrosis evident bilaterally. The ureters are unremarkable. Peritoneal Cavity/Bowel: There is persistent focal wall thickening about the proximal to mid sigmoid as seen on image 67 as before. Multiple diverticula present in this location. There is a small poorly defined slightly rim-enhancing fluid collection within the posterior wall as seen on series 3, image 66 measuring approximately 1.0 x 2.7 x 1.5 cm suggesting development of immature abscess. No free air or fluid collection evident. Some pericolonic fat stranding present as before. The remainder of the bowel is unremarkable. Trace free fluid present in the right cul-de-sac. The appendix is well visualized and normal. Pelvic Organs: The bladder, uterus, adnexa and rectum are normal. Vasculature: No aneurysms or other significant abnormality. Bones: No significant abnormality. Other: None. IMPRESSION: Interval development of ill-defined mildly rim-enhancing fluid collection involving the posterior wall of the proximal to mid sigmoid measuring 1.0 x 1.5 x 2.7 cm suggesting early diverticular abscess. Sigmoid wall thickening and pericolonic stranding again present as seen previously. [facility]
[2019-09-06] MEDS ORDERED: CIPROFLOXACIN 400 MG/200 ML 200 ML IV ONE (17:09)
[2019-09-06] MEDS ORDERED: metroNIDAZOLE 500 MG/100 ML 500 MG/100 ML BAG IV ONE (17:09)
[2019-09-06] MEDS ORDERED: MORPHINE 2 MG/ML CARPUJECT IVP PRN (17:10)
[2019-09-06] MEDS ORDERED: ONDANSETRON ODT 4 MG TABLET TL PRN (17:10)
[2019-09-06] MEDS ORDERED: SODIUM CHLORIDE FLUSH 0.9% 10 ML SYRINGE IVP PRN (17:10)
[2019-09-06] MEDS ORDERED: HYDROmorphone 1 MG/ML CARPUJECT IVP STA (17:12)
[2019-09-06] MEDS: CIPROFLOXACIN 400 MG/200 ML 200 ML IV SCH (18:19)
[2019-09-06] MEDS: metroNIDAZOLE 500 MG/100 ML 500 MG/100 ML BAG IV SCH (18:32)
--- NOTE | 2019-09-06 18:36 | HISTORY & PHYSICAL EXAMINATION ---
Chief Complaint - Chief Complaint Chief Complaint: Left lower quadrant abdominal pain <Isabel Vaughan - Last Filed: 09/06/19 18:22> History of Present Illness - Admitted From Admitted From:: ER - History Obtained From Records Reviewed: Yes History obtained from: Patient <Isabel Vaughan - Last Filed: 09/06/19 18:22> <Marilyn Veliz - Last Filed: 09/07/19 15:40> - History of Present Illness HPI Comment/Other: Ms. Alec Ovalle is a 49 year old with past medical history of multiple episodes of diverticulitis, section x3, and post-herpetic neuralgia starting 1 week ago who was admitted for left lower quadrant abdominal pain. On Sunday the patient said that she was about to get her menstrual cycle and was starting to experience lower abdominal pain which she was attributing to cramps. The pain continued and so she started a clear liquid diet at that time. She reports being very uncomfortable in the morning, but has continued to work and finds relief with distraction and a warm pack to the area. She has a lot of pain after she urinates and with decompression of her bladder. Today, her pain was more constant throughout the day and wasn't getting better, so at the urging of her fiance, she came to the hospital. Patient has been seen in the ER before for diverticulitis flares, but has not seen General Surgery inthe outpatient setting because she had two young children and was going through a divorce. (ClementIsabel) I met this patient with her first episode of diverticulitis. She has had several bouts between then and now. She has not sought surgical consultation. There is quite a bit of turmoil in her life as she fought her first for custody of her children. She now presents with another episode as stated above. (Marilyn Veliz) History - Past Medical History Cardiovascular: reports: None Respiratory: reports: None Neuro: reports: Other (herpetic neuralgia to left temporal area) Endocrine/Autoimmune: reports: None GI: reports: Diverticulitis. 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 denies: Benign prostate hypertrophy, Dialysis, Retention, Incontinence, Chronic bladder infection, Renal insuffiency, Ind welling catheter, Nocturia HEENT: reports: Other (Left temporal herpetic neuralgia) Psych: reports: None Musculoskeletal: reports: None Derm: reports: Herpes zoster (Left temporal area-no open sores, patient referred to outpatient neurology) MRSA Hx?: No - Past Surgical History /GREEN JOBS TRAINER: reports: section, Tubal ligation Cardiovascular: denies: CABG, Coronary stent, Valve replacement, Pacemaker, AICD, Cardiac catheterization, Lobectomy, Vascular surgery, Angioplasty, AAA Neuro: denies: Craniotomy, SUPER[employer]OR [employer] FINISHING shunt, Gamma knife, Radical neck HEENT: denies: Cataracts, Detached retina repair, Myringotomy (tubes), Cochlear implant, Rhinoplasty, Tonsil/Adenoidectomy, Tracheostomy Derm: denies: Skin grafts, Debridement, Skin cancer surgery, Other - Family & Social History Family History: Mother: Alive and Well, Diabetes, Type 2 (Borderline DM2), Hypertension, Father: , Alzheimer's Disease, Cancer, Hypertension Living arrangement: At home Living Situation: With spouse/s.o. - Substance History Use: Uses substance without health or social issues: Alcohol (2 glasses of wine per day), Cannabis (1-2 times per week) Abuse: Recurrent use of substance despite neg consequences: NONE Dependence: Experiences withdrawal or developed tolerances: NONE - POLST Patient has POLST: No POLST Status: Full Code <Isabel Vaughan - Last Filed: 09/06/19 18:22> - Past Medical History Other Past Medical History: No other substantial history to add. Agree with above - Past Surgical History Other past surgical history: Agree with above. - Family & Social History Family History Comment/Other: No change. Agree. 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 Lives with her significant other and her children. Denies any smoking, alcohol abuse. She does drink occasionally. <Marilyn Veliz - Last Filed: 09/07/19 15:40> Meds/Allgy <Isabel Vaughan - Last Filed: 09/06/19 18:22> <Marilyn Veliz - Last Filed: 09/07/19 15:40> - Home Medications Home Medications: Ambulatory Orders Medication Instructions Recorded Confirmed Multivitamin [Theragran] 1 each PO DAILY 09/07/19 09/07/19 RX: Melatonin 6 mg PO QPM PRN 09/07/19 09/07/19 - Allergies Allergies/Adverse Reactions: Allergies Allergy/AdvReac Type Severity Reaction Status Date / Time amoxicillin [Amoxicillin] AdvReac Unknown Rash Verified 01/21/19 21:05 Penicillins AdvReac Unknown Rash Verified 01/21/19 21:05 Review of Systems - Constitutional Constitutional: reports: Night sweats (Patient believes night sweats related to perimenopause). denies: Fatigue, Fever, Chills, Malaise, Weakness, Poor appetite, Diaphoresis, Weight gain, Weight loss - Eyes Eyes: denies: Pain, Irritation - Ears, Nose & Throat Ears, Nose & Throat: denies: Ear pain, Hearing loss - Cardiovascular Cariovascular: denies: Irregular heart rate, Palpitations - Respiratory Respiratory: denies: Cough, Sputum production - Gastrointestinal Gastrointestinal: reports: Abdominal pain, Change in bowel habits. denies: Diarrhea, Nausea, Vomiting - Musculoskeletal Musculoskeletal: denies: Muscle pain, Back pain - Integumentary Integumentary: denies: Rash, Dryness - Neurological Neurological: reports: Headache (Related to herpetic neuralgia) - Endocrine Endocrine: reports: Polyuria <Isabel Vaughan - Last Filed: 09/06/19 18:22> <Marilyn Veliz - Last Filed: 09/07/19 15:40> - Other Findings Other Findings: No additions or positives. Complete review of systems obtained. 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 (Leighton Vaughan) Exam - Vital Signs Reviewed Vital Signs: Yes - Physical Exam General Appearance: positive: Alert, Mild distress Eyes Bilateral: positive: Normal inspection Neck: positive: Nml inspection Respiratory: positive: Chest non-tender, Breath sounds nml. negative: Wheezes, Rales, Rhonchi Cardiovascular: positive: Regular rate & rhythm, No murmur, No gallop Peripheral Pulses: positive: 2+ Abdomen: positive: Nml bowel sounds, Tenderness, Other (Amenia mottling over the left lower quadrant. Patient has been using a heating pad often in the last few days and pushing on the area with her fingers.). negative: Hepatomegaly, Splenomegaly Back: positive: Nml inspection Skin: positive: Color nml, No rash, Warm, Dry Extremities: positive: Non-tender, Nml appearance Neurologic/Psychiatric: positive: Oriented x3 <Isabel Vaughan - Last Filed: 09/06/19 18:22> - Physical Exam Abdomen: positive: Other (Amenia mottling over the left lower quadrant. Patient has been using a heating pad often in the last few days and pushing on the area with her fingers. She has left lower quadrant pain. She has mild peritoneal findings, minimal guarding. No masses. Normal bowel sounds.) Extremities: positive: No pedal edema Neurologic/Psychiatric: positive: CN's nml (2-12), Motor nml <Marilyn Veliz L - Last Filed: 09/07/19 15:40> - Vital Signs Vital Signs: Vital Signs x48h Temp Pulse Resp BP Pulse Ox 09/06/19 17:41 73 18 122/91 H 97 09/06/19 14:48 36.8 C 78 18 119/87 H 99 Conclusion/Plan - Problem List (1) Diverticulitis Conclusion/Plan: Patient admitted for left lower quadrant pain with evidence of Hinchey Classification 1B on abdominal CT 09/06/2019. Advised patient that a colon resection would be in her best interest. 1. IV ciprofloxacin and IV flagyl 2. CBC and BMP 09/07/2019 3. Clear liquid diet for bowel rest 4. General surgery consult 5. IV diladid for pain management - Lab Results Fish Bones: 09/06/19 15:00 09/06/19 15:00 - Diagnostic Imaging Results Diagnostic Imaging Results: positive: Final report reviewed <Isabel Vaughan - Last Filed: 09/06/19 18:22> - Problem List (1) Diverticulitis Conclusion/Plan: I agree with the Hinchey classification of 1B on abdominal CT. Criteria for admission include abscess on CT, and peritoneal findings. She will be on IV antibiotics. Because of her allergy to penicillins I will not be using single agent Zosyn. She has been remiss in following up for this with her previous episodes. This would be about episode #5 or 6 if I am not mistaken in reviewing her medical records. Surgery consult ordered. (2) Postherpetic neuralgia Conclusion/Plan: Of scalp. I will explore with patient how severe the pain is. She may be a candidate for neuropathy medications. Will avoid opiates on a chronic basis.She would also be a candidate for shingles vaccine. She should follow-up with that in the outpatient setting. - Lab Results Lab results reviewed: Yes Fish Bones: 09/07/19 05:55 09/07/19 05:55 <Marilyn Veliz L - Last Filed: 09/07/19 15:40> - Diagnostic Imaging Results Diagnostic Imaging Results Comments: CT ABDOMEN AND PELVIS EXAM DATE: 09/06/2019 04:31 PM. CLINICAL HISTORY: Left lower quadrant abdominal pain. COMPARISONS: ABDOMEN/PELVIS W/ 09/01/2018 10:25 AM. TECHNIQUE: Routine helical CT imaging was performed through the abdomen and pelvis. IV contrast: OPTI 320 90ML. Enteric contrast: No. Reconstructions: Coronal and sagittal. In accordance with CT protocol optimization, one or more of the following dose reduction techniques were utilized for this exam: automated exposure control, adjustment of mA and/or KV based on patient size, or use of iterative reconstructive technique. FINDINGS: Lung Bases: Unremarkable. Liver: Normal. No masses. Gallbladder/Bile Ducts: Unremarkable. Spleen: Normal. Pancreas: Normal. Adrenal Glands: Normal. Kidneys: 2 right renal simple cysts are again present unchanged. No calculi or hydronephrosis evident bilaterally. The ureters are unremarkable. Peritoneal Cavity/Bowel: There is persistent focal wall thickening about the proximal to mid sigmoid as seen on image 67 as before. Multiple diverticula present in this location. There is a small poorly defined slightly rim-enhancing fluid collection within the posterior wall as seen on series 3, image 66 measuring approximately 1.0 x 2.7 x 1.5 cm suggesting development of immature abscess. No free air or fluid collection evident. Some pericolonic fat stranding present as before. The remainder of the bowel is unremarkable. Trace free fluid present in the right cul-de-sac. The appendix is well visualized and normal. Pelvic Organs: The bladder, uterus, adnexa and rectum are normal. Vasculature: No aneurysms or other significant abnormality. Bones: No significant abnormality. Other: None. IMPRESSION: Interval development of ill-defined mildly rim-enhancing fluid collection involving the posterior wall of the proximal to mid sigmoid measuring 1.0 x 1.5 x 2.7 cm suggesting early diverticular abscess. Sigmoid wall thickening and pericolonic stranding again present as seen previously. (Marilyn Veliz) Core Measures - Anticipated LOS I expect patient to be DC'd or transferred within 96 hours.: Yes - DVT/VTE - Prophylaxis VTE/DVT Device ordered at admit?: Yes <Marilyn Veliz - Last Filed: 09/07/19 15:40>
--- NOTE | 2019-09-06 19:12 | CONSULTATION NOTE ---
Referring Provider Name of Referring Provider:: Dr. Veliz Consult Date: 09/06/19 Chief Complaint - Chief Complaint Chief Complaint: LLQ abd pain History of Present Illness - Admitted From Admitted From:: ER - History Obtained From Records Reviewed: yes History obtained from: pt Exam Limitations: none - History of Present Illness HPI Comment/Other: 49 yo female with 5 day hx of progressively worsening constant steady nonradiating LLQ abd pain associated with anorexia, N/V x 1, but no fever/chills. Hx multiple similar episodes attributed to acute diverticulitis including one 2 yrs ago requiring hospitalization and a 5 day stay and one episode 1 yr ago treated as an outpatient with antibiotics with resolution. She reports several other milder episodes that went undiagnosed previously. She switched to a clear liquid diet when sx began and presented to the ER today when sx failed to improve. She reports minimal bms since onset of sx but is passing flatus. One small loose bm yesterday coated with a small amount of BRB ow no rectal bleeding or melena noted. She report no prior colonoscopies. Neg FH CRC or diverticular disease. No recent wt loss. Evaluation in the ER included nl CBC and abd/pelvic CT showing marked thickening of sigmoid colon with fluid collection in the colonic wall measuring 1.5 x 1 x 3 cm c/w small evolving abscess. Findings were thought c/w recurrent acute diverticulitis. History - Past Medical History Cardiovascular: reports: None Respiratory: reports: None Neuro: reports: Other (herpetic neuralgia to left temporal area) Endocrine/Autoimmune: reports: None GI: reports: Diverticulitis. 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 denies: Chronic bladder infection, Nocturia HEENT: reports: Other (Left temporal herpetic neuralgia) Psych: reports: None Musculoskeletal: reports: None Derm: reports: Herpes zoster (Left temporal area-no open sores, patient referred to outpatient neurology) MRSA Hx?: No - Past Surgical History Ortho: reports: Arthroscopic surgery (right knee) /SHINGLE BOLT CUTTER: reports: section, Tubal ligation Derm: reports: Skin grafts - Family & Social History Family History: Mother: Alive and Well, Diabetes, Type 2 (Borderline DM2), Hypertension, Father: , Alzheimer's Disease, Cancer, Hypertension Family History Comment/Other: neg for CRC Living arrangement: At home Living Situation: With spouse/s.o. - Substance History Use: Uses substance without health or social issues: Alcohol (2 glasses of wine per day), Cannabis (1-2 times per week) Abuse: Recurrent use of substance despite neg consequences: NONE Dependence: Experiences withdrawal or developed tolerances: NONE - POLST Patient has POLST: No POLST Status: Full Code Meds/Allgy - Allergies Allergies/Adverse Reactions: Allergies Allergy/AdvReac Type Severity Reaction Status Date / Time amoxicillin [Amoxicillin] AdvReac Unknown Rash Verified 01/21/19 21:05 Penicillins AdvReac Unknown Rash Verified 01/21/19 21:05 Review of Systems - Constitutional Constitutional: denies: Fever, Chills, Weight gain, Weight loss - Cardiovascular Cariovascular: denies: Chest pain - Respiratory Respiratory: denies: Cough - Gastrointestinal Gastrointestinal: reports: Abdominal pain, Change in bowel habits (loose, mininal since onset of sx), Bloody stools (one mild episode yesterday), Nausea, Vomiting. denies: Constipation, Diarrhea, Coffee grounds emesis - Genitourinary Genitourinary: reports: Dysuria (since onset of sx) - Hematologic/Lymphatic Hematologic/Lymphatic: denies: Blood clots, Bleeding tendencies - All Other Systems All Other Systems: reports: Reviewed and negative (or covered in HPI/PMH) Exam - Vital Signs Reviewed Vital Signs: Yes Vital Signs: Vital Signs x48h Temp Pulse Pulse Resp BP BP Pulse Ox 09/06/19 19:04 36.5 C 69 20 100 09/06/19 18:27 36.5 C 69 20 152/91 H 100 09/06/19 17:41 73 18 122/91 H 97 09/06/19 14:48 36.8 C 78 18 119/87 H 99 - Physical Exam General Appearance: positive: Alert, Moderate distress (c/o abd pain) Eyes Bilateral: positive: Normal inspection, No scleral icterus ENT: positive: ENT inspection nml, Pharynx nml, No signs of dehydration Neck: positive: Nml inspection, No JVD, Trachea midline. negative: Lymphadenopathy (R), Lymphadenopathy (L) Respiratory: positive: Chest non-tender, No respiratory distress, Breath sounds nml. negative: Wheezes, Rales, Rhonchi Cardiovascular: positive: Regular rate & rhythm, No murmur, No gallop Abdomen: positive: No organomegaly, Tenderness (LLQ and suprapubic), Abnml bowel sounds (hyperactive). negative: Guarding, Rebound, Hepatomegaly, Splenomegaly, Mass Skin: positive: Color nml, No rash, Warm, Dry. negative: Cyanosis Extremities: positive: No pedal edema. negative: Calf tenderness Neurologic/Psychiatric: positive: Oriented x3 Conclusion and Plan - Lab Results Laboratory Results 09/06/19 15:25: Ur Specific [place] 1.025, Urine HCG, Qual NEGATIVE 09/06/19 15:25: Urine Color YELLOW, Urine Clarity HAZY, Urine pH 6.0, Ur Specific [place] 1.025, Urine Protein NEGATIVE, Urine Glucose (UA) NEGATIVE, Urine Ketones 40 H, Urine Occult Blood TRACE-INTA, Urine Nitrite NEGATIVE, Urine Bilirubin SMALL H, Urine Urobilinogen 0.2 (NORMAL), Ur Leukocyte Esterase NEGATIVE, Urine RBC 0-5, Urine WBC 0-3, Ur Squamous Epith Cells FEW Squamous, Urine Bacteria Few, Urine Mucus Moderate Strands, Ur Microscopic Review INDICATED, Urine Culture Comments NOT INDICATED 09/06/19 15:00: Sodium 135, Potassium 3.8, Chloride 101, Carbon Dioxide 24, Anion Gap 10.0, BUN 9, Creatinine 0.6, Estimated GFR (MDRD) 106, Glucose 110 H, Calcium 9.5, Total Bilirubin 1.0, AST 21, ALT 14, Alkaline Phosphatase 66, Total Protein 8.0, Albumin 3.9, Globulin 4.1, Albumin/Globulin Ratio 1.0, Lipase 27 09/06/19 15:00: WBC 8.7, RBC 4.44, Hgb 15.3, Hct 45.2, MCV 101.8 H, MCH 34.5 H, MCHC 33.8, RDW 12.4, Plt Count 344, MPV 8.6, Neut # (Auto) 5.8, Lymph # (Auto) 2.1, [place] # (Auto) 0.6, Eos # (Auto) 0.2, Baso # (Auto) 0.1, Absolute Nucleated RBC 0.00, Nucleated RBC % 0.0 - Diagnostic Imaging Results Diagnostic Imaging Results: positive: Final report reviewed, Read independently Diagnostic Imaging Results Comments: See HPI - Diagnosis Diagnosis: Acute diverticulitis, with evolving small pericolonic abscess; no evidence of free perforation or drainable abscess at present; this is her 3rd episode in 2 yrs. - Plan Plan: Agree with present management. Will follow. Following resolution with medical management, pt will need a colonoscopy and further discussion regarding elective sigmoid colectomy to prevent recurrent episodes.
[2019-09-06] MEDS: LACTATED RINGERS 1,000 ML IV SCH (20:10)
[2019-09-06] MEDS: ONDANSETRON 4 MG/2 ML VIAL IVP PRN (20:49)
[2019-09-07] MEDS: HYDROmorphone 1 MG/ML CARPUJECT IVP PRN ×3 (00:42→14:11)
[2019-09-07] MEDS: SODIUM CHLORIDE FLUSH 0.9% 10 ML SYRINGE IVP SCH ×3 (00:42→17:19)
[2019-09-07] MEDS: metroNIDAZOLE 500 MG/100 ML 500 MG/100 ML BAG IV SCH ×3 (01:43→18:52)
[2019-09-07] MEDS: CIPROFLOXACIN 400 MG/200 ML 200 ML IV SCH ×2 (05:44→17:37)
[2019-09-07 06:15] LABS: BASOPHILS # (AUTO) 0.1 10^3/uL (0.0-0.1); BASOPHILS % (AUTO) 0.6 %; EOSINOPHILS # (AUTO) 0.3 10^3/uL (0.0-0.7); EOSINOPHILS % (AUTO) 3.2 %; HGB - HEMOGLOBIN 13.2 g/dL (12.0-16.0); LYMPHOCYTES # (AUTO) 2.5 10^3/uL (1.5-3.5); LYMPHOCYTES % (AUTO) 32.7 %; MEAN CORPUSCULAR HEMOGLOBIN 34.5 pg (27.0-31.0); MEAN CORPUSCULAR HGB CONC 34.2 g/dL (32.0-36.0); MEAN CORPUSCULAR VOLUME 100.8 fL (81.0-99.0); MEAN PLATELET VOLUME 8.9 fL (7.9-10.8); MONOCYTES # (AUTO) 0.6 10^3/uL (0.0-1.0); MONOCYTES % (AUTO) 7.1 %; NEUTROPHILS # (AUTO) 4.3 10^3/uL (1.5-6.6); PLT - PLATELET COUNT 310 10^3/uL (130-450); RED BLOOD COUNT 3.83 10^6/uL (4.20-5.40); RED CELL DISTRIBUTION WIDTH 12.3 % (12.0-15.0); WHITE BLOOD COUNT 7.7 x10^3/uL (4.8-10.8)
[2019-09-07 06:27] LABS: CALCIUM 8.5 mg/dL (8.5-10.3); CREATININE 0.5 mg/dL (0.4-1.0)
[2019-09-07] MEDS: LACTATED RINGERS 1,000 ML IV SCH (09:10)
[2019-09-07] MEDS: ONDANSETRON 4 MG/2 ML VIAL IVP PRN ×2 (09:10→14:10)
[2019-09-07] MEDS: ENOXAPARIN 40 MG/0.4 ML SYRINGE SUBQ SCH (09:10)
--- NOTE | 2019-09-07 09:59 | PROVIDER PROGRESS NOTE ---
<Isabel Vaughan - Last Filed: 09/07/19 10:32> Subjective - Prog Note Date Prog Note Date: 09/07/19 Prog Note Time: 09:53 - Subjective Pt reports feeling: Improved Subjective: Patient was sitting up in bed and finishing her clear liquid breakfast. She said that she is feeling better than yesterday. She reports having two bouts of emesis, one after her dose of diluadid in the ER yesterday and one after the following dose of dilaudid. Patient said that her pain was an 9 out of 10 in her left lower abdomen when she had just gotten up to the restroom. Current Medications - Current Medications Current Medications: Active Medications Enoxaparin Sodium (Lovenox) 40 mg SUBQ DAILY [facility] Last Admin: 09/07/19 09:10 Dose: 40 mg Hydromorphone HCl (Dilaudid Inj Carp) 1 mg IVP Q2HR PRN PRN Reason: PAIN Last Admin: 09/07/19 09:10 Dose: 1 mg Ciprofloxacin (Cipro 400 Mg/200 Ml) 200 mls @ 200 mls/hr IV Q12H [facility] Last Infusion: 09/07/19 06:55 Dose: Infused Metronidazole (Flagyl 500 Mg/100 Ml) 500 mg in 100 mls @ 100 mls/hr IV Q8H [facility] Last Admin: 09/07/19 09:56 Dose: 100 mls/hr Lactated Ringer's (Lr) 1,000 mls @ 83.333 mls/hr IV .Q12H [facility] Last Admin: 09/07/19 09:10 Dose: 83.3 mls/hr Ondansetron HCl (Zofran Inj) 4 mg IVP Q6HR PRN PRN Reason: Nausea / Vomiting Last Admin: 09/07/19 09:10 Dose: 4 mg Ondansetron HCl (Zofran Odt) 4 mg TL Q6HR PRN PRN Reason: Nausea / Vomiting Sodium Chloride (Normal Saline Flush 0.9%) 10 ml IVP PRN PRN PRN Reason: NEEDED PER PROVIDER ORDERS Sodium Chloride (Normal Saline Flush 0.9%) 10 ml IVP 0100,0900,1700 [facility] Last Admin: 09/07/19 09:10 Dose: 10 ml Objective - Vital Signs/Intake & Output Reviewed Vital Signs: Yes Vital Signs: Vital Signs x48h Temp Pulse Resp BP Pulse Ox 09/07/19 07:20 36.9 C 58 L 18 122/79 97 Intake & Output: Intake & Output 09/04/19 09/05/19 09/06/19 09/07/19 23:59 23:59 23:59 23:59 Intake Total 2091.666 1108.334 Output Total 800 Balance 6111.428 9534.334 - Objective General Appearance: positive: No acute distress, Alert Eyes Bilateral: positive: Normal inspection, PERRL, EOMI Neck: positive: Nml inspection Respiratory: positive: Chest non-tender, Breath sounds nml Cardiovascular: positive: Regular rate & rhythm Peripheral Pulses: 2+ Radial (R), 2+ Radial (L), 2+ Posterior tibialis (R), 2+ Posterior tibialis (L) Abdomen: positive: Nml bowel sounds, Tenderness, Other (Patient reports passing flatus). negative: Hepatomegaly, Splenomegaly Back: positive: Nml inspection Skin: positive: Color nml, No rash, Warm, Dry - Lab Results Fish Bones: 09/07/19 05:55 09/07/19 05:55 Other Labs: Lab Results x24hrs 09/07/19 09/07/19 09/06/19 Range/Units 05:55 05:55 15:25 WBC 7.7 (4.8-10.8) x10^3/uL RBC 3.83 L (4.20-5.40) 10^6/uL Hgb 13.2 (12.0-16.0) g/dL Hct 38.6 (37.0-47.0) % MCV 100.8 H (81.0-99.0) fL MCH 34.5 H (27.0-31.0) pg MCHC 34.2 (32.0-36.0) g/dL RDW 12.3 (12.0-15.0) % Plt Count 310 (130-450) 10^3/uL MPV 8.9 (7.9-10.8) fL Neut # (Auto) 4.3 (1.5-6.6) 10^3/uL Lymph # (Auto) 2.5 (1.5-3.5) 10^3/uL [place] # (Auto) 0.6 (0.0-1.0) 10^3/uL Eos # (Auto) 0.3 (0.0-0.7) 10^3/uL Baso # (Auto) 0.1 (0.0-0.1) 10^3/uL Absolute Nucleated RBC 0.00 x10^3/uL Nucleated RBC % 0.0 /100WBC Sodium 136 (135-145) mmol/L Potassium 3.6 (3.5-5.0) mmol/L Chloride 105 (101-111) mmol/L Carbon Dioxide 22 (21-32) mmol/L Anion Gap 9.0 (6-13) BUN 8 (6-20) mg/dL Creatinine 0.5 (0.4-1.0) mg/dL Estimated GFR (MDRD) 131 (>89) Glucose 110 H (70-100) mg/dL Calcium 8.5 (8.5-10.3) mg/dL Total Bilirubin (0.2-1.0) mg/dL AST (10-42) IU/L ALT (10-60) IU/L Alkaline Phosphatase (42-121) IU/L Total Protein (6.7-8.2) g/dL Albumin (3.2-5.5) g/dL Globulin (2.1-4.2) g/dL Albumin/Globulin Ratio (1.0-2.2) Lipase (22-51) U/L Urine Color Urine Clarity (CLEAR) Urine pH (5.0-7.5) PH Ur Specific [place] 1.025 (1.002-1.030) Urine Protein (NEGATIVE) mg/dL Urine Glucose (UA) (NEGATIVE) mg/dL Urine Ketones (NEGATIVE) mg/dL Urine Occult Blood (NEGATIVE) Urine Nitrite (NEGATIVE) Urine Bilirubin (NEGATIVE) Urine Urobilinogen (NORMAL) E.U./dL Ur Leukocyte Esterase (NEGATIVE) Urine RBC (0-5) /HPF Urine WBC (0-5) /HPF Ur Squamous Epith Cells (<= Few) Urine Bacteria (None Seen) /HPF Urine Mucus Ur Microscopic Review Urine Culture Comments Urine HCG, Qual NEGATIVE 09/06/19 09/06/19 09/06/19 Range/Units 15:25 15:00 15:00 WBC 8.7 (4.8-10.8) x10^3/uL RBC 4.44 (4.20-5.40) 10^6/uL Hgb 15.3 (12.0-16.0) g/dL Hct 45.2 (37.0-47.0) % MCV 101.8 H (81.0-99.0) fL MCH 34.5 H (27.0-31.0) pg MCHC 33.8 (32.0-36.0) g/dL RDW 12.4 (12.0-15.0) % Plt Count 344 (130-450) 10^3/uL MPV 8.6 (7.9-10.8) fL Neut # (Auto) 5.8 (1.5-6.6) 10^3/uL Lymph # (Auto) 2.1 (1.5-3.5) 10^3/uL [place] # (Auto) 0.6 (0.0-1.0) 10^3/uL Eos # (Auto) 0.2 (0.0-0.7) 10^3/uL Baso # (Auto) 0.1 (0.0-0.1) 10^3/uL Absolute Nucleated RBC 0.00 x10^3/uL Nucleated RBC % 0.0 /100WBC Sodium 135 (135-145) mmol/L Potassium 3.8 (3.5-5.0) mmol/L Chloride 101 (101-111) mmol/L Carbon Dioxide 24 (21-32) mmol/L Anion Gap 10.0 (6-13) BUN 9 (6-20) mg/dL Creatinine 0.6 (0.4-1.0) mg/dL Estimated GFR (MDRD) 106 (>89) Glucose 110 H (70-100) mg/dL Calcium 9.5 (8.5-10.3) mg/dL Total Bilirubin 1.0 (0.2-1.0) mg/dL AST 21 (10-42) IU/L ALT 14 (10-60) IU/L Alkaline Phosphatase 66 (42-121) IU/L Total Protein 8.0 (6.7-8.2) g/dL Albumin 3.9 (3.2-5.5) g/dL Globulin 4.1 (2.1-4.2) g/dL Albumin/Globulin Ratio 1.0 (1.0-2.2) Lipase 27 (22-51) U/L Urine Color YELLOW Urine Clarity HAZY (CLEAR) Urine pH 6.0 (5.0-7.5) PH Ur Specific [place] 1.025 (1.002-1.030) Urine Protein NEGATIVE (NEGATIVE) mg/dL Urine Glucose (UA) NEGATIVE (NEGATIVE) mg/dL Urine Ketones 40 H (NEGATIVE) mg/dL Urine Occult Blood TRACE-INTA (NEGATIVE) Urine Nitrite NEGATIVE (NEGATIVE) Urine Bilirubin SMALL H (NEGATIVE) Urine Urobilinogen 0.2 (NORMAL) (NORMAL) E.U./dL Ur Leukocyte Esterase NEGATIVE (NEGATIVE) Urine RBC 0-5 (0-5) /HPF Urine WBC 0-3 (0-5) /HPF Ur Squamous Epith Cells FEW Squamous (<= Few) Urine Bacteria Few (None Seen) /HPF Urine Mucus Moderate Strands Ur Microscopic Review INDICATED Urine Culture Comments NOT INDICATED Urine HCG, Qual ABX Reporting Has patient been on IV antibiotics over the past 48 hours?: No Assessment/Plan - Problem List (1) Diverticulitis Impression: Patient was admitted for left lower abdominal pain. This is her 5th episode of diverticulitis since 2015. She never followed up with a general surgeon largely in part because she has two young kids and was going through a divorce. She has been experiencing pain in her lower abdomen since Sunday, and she thought the pain was menstrual cramps. As the pain progressed, she realized that this was similar to her previous diverticulitis flares and she went on a clear liquid diet. On Sunday, when the left lower abdominal pain was not resolving, she can to the ER. CT abdomen revealed an abscess, Hinchey classification 1B. She was started on IV zosyn and vancomycin and admitted. No fevers, no elevated WBCs. 1. Continue IV zosyn and vancomycin. 2. Vancomycin trough before 4th dose. 3. Continue clear liquid diet. 4. Repeat CT abdomen in 72 hours to assess abscess. (2) Diverticulitis Qualifiers: Diverticulitis site: large intestine Diverticulitis bleeding: without bleeding Diverticulitis complication: without perforation or abscess Qualified Code(s): K57.32 - Diverticulitis of large intestine without perforation or abscess without bleeding (3) DVT prophylaxis Impression: Enoxaparin subcutaneously for DVT prophylaxis. <Marilyn Veliz - Last Filed: 09/07/19 15:50> Subjective - Subjective Subjective: no changes from student note. She is alert, getting up on her own. Objective - Vital Signs/Intake & Output Intake & Output: Intake & Output 09/04/19 09/05/19 09/06/19 09/07/19 23:59 23:59 23:59 23:59 Intake Total 2091.666 1608.334 Output Total 800 Balance 6972.643 3387.334 - Objective General Appearance: positive: Other (Sitting up in bed, finishing her clear liquid food. Flatus and BMs are causing her to have pain. 9 out of a 10.) ENT: positive: Pharynx nml, No signs of dehydration Neck: positive: No JVD. negative: Stiff neck Respiratory: positive: Other (Completely clear on auscultation and no respiratory distress) Cardiovascular: negative: Tachycardia, JVD present, Gallop/S4, Friction rub Abdomen: negative: Guarding, Rebound Extremities: positive: Non-tender, No pedal edema Neurologic/Psychiatric: positive: Oriented x3, CN's nml (2-12), Motor nml - Lab Results Fish Bones: 09/07/19 05:55 09/07/19 05:55 Other Labs: Lab Results x24hrs 09/07/19 09/07/19 09/06/19 Range/Units 05:55 05:55 15:25 WBC 7.7 (4.8-10.8) x10^3/uL RBC 3.83 L (4.20-5.40) 10^6/uL Hgb 13.2 (12.0-16.0) g/dL Hct 38.6 (37.0-47.0) % MCV 100.8 H (81.0-99.0) fL MCH 34.5 H (27.0-31.0) pg MCHC 34.2 (32.0-36.0) g/dL RDW 12.3 (12.0-15.0) % Plt Count 310 (130-450) 10^3/uL MPV 8.9 (7.9-10.8) fL Neut # (Auto) 4.3 (1.5-6.6) 10^3/uL Lymph # (Auto) 2.5 (1.5-3.5) 10^3/uL [place] # (Auto) 0.6 (0.0-1.0) 10^3/uL Eos # (Auto) 0.3 (0.0-0.7) 10^3/uL Baso # (Auto) 0.1 (0.0-0.1) 10^3/uL Absolute Nucleated RBC 0.00 x10^3/uL Nucleated RBC % 0.0 /100WBC Sodium 136 (135-145) mmol/L Potassium 3.6 (3.5-5.0) mmol/L Chloride 105 (101-111) mmol/L Carbon Dioxide 22 (21-32) mmol/L Anion Gap 9.0 (6-13) BUN 8 (6-20) mg/dL Creatinine 0.5 (0.4-1.0) mg/dL Estimated GFR (MDRD) 131 (>89) Glucose 110 H (70-100) mg/dL Calcium 8.5 (8.5-10.3) mg/dL Urine Color YELLOW Urine Clarity HAZY (CLEAR) Urine pH 6.0 (5.0-7.5) PH Ur Specific [place] 1.025 (1.002-1.030) Urine Protein NEGATIVE (NEGATIVE) mg/dL Urine Glucose (UA) NEGATIVE (NEGATIVE) mg/dL Urine Ketones 40 H (NEGATIVE) mg/dL Urine Occult Blood TRACE-INTA (NEGATIVE) Urine Nitrite NEGATIVE (NEGATIVE) Urine Bilirubin SMALL H (NEGATIVE) Urine Urobilinogen 0.2 (NORMAL) (NORMAL) E.U./dL Ur Leukocyte Esterase NEGATIVE (NEGATIVE) Urine RBC 0-5 (0-5) /HPF Urine WBC 0-3 (0-5) /HPF Ur Squamous Epith Cells FEW Squamous (<= Few) Urine Bacteria Few (None Seen) /HPF Urine Mucus Moderate Strands Ur Microscopic Review INDICATED Urine Culture Comments NOT INDICATED ABX Reporting Has patient been on IV antibiotics over the past 48 hours?: Yes Assessment/Plan - Problem List (1) Diverticulitis Impression: Pain waxes and wane depending on flatus and gaseous distention. But she is not spiking a fever, white cell count is remaining stable. We will repeat CT at 72 hours and assess to see if she is ready to then progress diet and be changed to orals. (2) Postherpetic neuralgia Impression: No change. Main recommendation is outpatient shingles vaccine.
--- NOTE | 2019-09-07 10:02 | PHARMACY PROGRESS NOTE ---
- Best Possible Medication History Admit Date and Time: 09/06/19 1710 Processed by: Pharmacy Medication History completed: Yes Patient Interview: Completed Secondary Source(s): Insurance records As the person ultimately responsible for medication therapy, providers are able to order a medication from an existing home medication list in [facility] via the "Reconcile Routine" prior to Confirmation of that medication by support architect. Such practice is discouraged except when the physician, in their clinical judgment, deems that a medical need exists for a medication without regard to previous use.
[2019-09-07] MEDS ORDERED: PROCHLORPERAZINE 10 MG/2 ML VIAL IVP PRN (15:17)
[2019-09-07] MEDS ORDERED: PROMETHAZINE INJ 25 MG in SODIUM CHLORIDE 0.9% 50 ML IV PRN (15:18)
[2019-09-07] MEDS ORDERED: MORPHINE 2 MG/ML CARPUJECT IVP PRN (18:55)
[2019-09-08] MEDS: SODIUM CHLORIDE FLUSH 0.9% 10 ML SYRINGE IVP SCH ×4 (01:33→23:46)
[2019-09-08] MEDS: metroNIDAZOLE 500 MG/100 ML 500 MG/100 ML BAG IV SCH (01:33)
[2019-09-08] MEDS: LACTATED RINGERS 1,000 ML IV SCH (01:33)
[2019-09-08] MEDS: CIPROFLOXACIN 400 MG/200 ML 200 ML IV SCH (05:44)
[2019-09-08 05:48] LABS: CALCIUM 8.8 mg/dL (8.5-10.3); CREATININE 0.6 mg/dL (0.4-1.0)
--- NOTE | 2019-09-08 07:31 | PROVIDER PROGRESS NOTE ---
Assessment/Plan - Problem List (1) Diverticulitis Qualifiers: Diverticulitis site: large intestine Diverticulitis bleeding: without bleeding Diverticulitis complication: with abscess Qualified Code(s): K57.20 - Diverticulitis of large intestine with perforation and abscess without bleeding Assessment/Plan: Doing well clinically; rec: d/c narcotics, advance to low residue diet, d/c IVF, perhaps home tomorrow on po antibiotics if continues to improve; needs outpt f/u in our office for colonoscopy and discussion regarding elective sigmoid colectomy to prevent recurrence. - Current Meds Current Meds: Current Medications Generic Name Dose Route Start Last Admin Trade Name Freq PRN Reason Stop Dose Admin Enoxaparin Sodium 40 mg 09/07/19 09:00 09/07/19 09:10 Lovenox SUBQ 40 mg DAILY [facility] Administration Ciprofloxacin 200 mls @ 200 mls/hr 09/06/19 18:00 09/08/19 07:06 Cipro 400 Mg/200 Ml IV Infused Q12H [facility] Infusion Metronidazole 500 mg in 100 mls @ 100 mls/hr 09/06/19 18:00 09/08/19 02:47 Flagyl 500 Mg/100 Ml IV Infused Q8H [facility] Infusion Lactated Ringer's 1,000 mls @ 83.333 mls/hr 09/06/19 20:00 09/08/19 01:33 Lr IV 83.3 mls/hr .Q12H [facility] Administration Ondansetron HCl 4 mg 09/06/19 17:10 09/07/19 14:10 Zofran Inj IVP 4 mg Q6HR PRN Administration Nausea / Vomiting Prochlorperazine Edisylate 10 mg 09/07/19 15:17 09/07/19 15:31 Compazine Inj IVP 10 mg Q4HR PRN Administration Nausea / Vomiting Sodium Chloride 10 ml 09/07/19 01:00 09/08/19 01:33 Normal Saline Flush 0.9% IVP 10 ml 0100,0900,1700 [facility] Administration - Lab Result Lab results reviewed: Yes Fish Bone Diagrams: 09/07/19 05:55 09/08/19 05:25 - Additional Planning Condition/Complexity: Improved My Orders: My Active Orders 09/07/19 09:00 Enoxaparin [Lovenox] 40 mg SUBQ DAILY Plan Discussed with:: Patient, Other (hospitalists) Time Spent: 15-30 minutes Subjective - Subjective Patient Reports: Feeling Better, Abdominal Pain (75 % better than on admit), Na usea (after narcotic administration) Objective Vital Signs: Vital Signs - 24 hr 09/07/19 09/08/19 15:49 00:00 Temperature 36.5 C 36.8 C Heart Rate [ 54 L 61 Brachial] Respiratory 18 20 Rate Blood Pressure 138/92 H 138/89 H [Right Brachial artery] O2 Saturation 96 96 Oxygen O2 Source Room air I&O (Last 24 Hrs): Intake and Output Totals x24h 09/06/19 09/07/19 09/08/19 23:59 23:59 23:59 Intake Total 2091.666 2863.607 594.727 Output Total 800 Balance 9366.235 8927.607 594.727 General: Alert, Oriented x3, Cooperative Abdomen: Normal bowel sounds, No hepatospenomegaly, No masses, Other (tender LLQ and suprapubic without guarding or rebound) Extremities: No edema, No tenderness/swelling - Results Results: Laboratory Results WBC 7.7 x10^3/uL (4.8-10.8) 09/07/19 05:55 RBC 3.83 10^6/uL (4.20-5.40) L 09/07/19 05:55 Hgb 13.2 g/dL (12.0-16.0) 09/07/19 05:55 Hct 38.6 % (37.0-47.0) 09/07/19 05:55 MCV 100.8 fL (81.0-99.0) H 09/07/19 05:55 MCH 34.5 pg (27.0-31.0) H 09/07/19 05:55 MCHC 34.2 g/dL (32.0-36.0) 09/07/19 05:55 RDW 12.3 % (12.0-15.0) 09/07/19 05:55 Plt Count 310 10^3/uL (130-450) 09/07/19 05:55 MPV 8.9 fL (7.9-10.8) 09/07/19 05:55 Neut # (Auto) 4.3 10^3/uL (1.5-6.6) 09/07/19 05:55 Lymph # (Auto) 2.5 10^3/uL (1.5-3.5) 09/07/19 05:55 [place] # (Auto) 0.6 10^3/uL (0.0-1.0) 09/07/19 05:55 Eos # (Auto) 0.3 10^3/uL (0.0-0.7) 09/07/19 05:55 Baso # (Auto) 0.1 10^3/uL (0.0-0.1) 09/07/19 05:55 Absolute Nucleated RBC 0.00 x10^3/uL 09/07/19 05:55 Nucleated RBC % 0.0 /100WBC 09/07/19 05:55 Sodium 138 mmol/L (135-145) 09/08/19 05:25 Potassium 3.7 mmol/L (3.5-5.0) 09/08/19 05:25 Chloride 107 mmol/L (101-111) 09/08/19 05:25 Carbon Dioxide 22 mmol/L (21-32) 09/08/19 05:25 Anion Gap 9.0 (6-13) 09/08/19 05:25 BUN 5 mg/dL (6-20) L 09/08/19 05:25 Creatinine 0.6 mg/dL (0.4-1.0) 09/08/19 05:25 Estimated GFR (MDRD) 106 (>89) 09/08/19 05:25 Glucose 95 mg/dL (70-100) 09/08/19 05:25 Calcium 8.8 mg/dL (8.5-10.3) 09/08/19 05:25 Total Bilirubin 1.0 mg/dL (0.2-1.0) 09/06/19 15:00 AST 21 IU/L (10-42) 09/06/19 15:00 ALT 14 IU/L (10-60) 09/06/19 15:00 Alkaline Phosphatase 66 IU/L (42-121) 09/06/19 15:00 Total Protein 8.0 g/dL (6.7-8.2) 09/06/19 15:00 Albumin 3.9 g/dL (3.2-5.5) 09/06/19 15:00 Globulin 4.1 g/dL (2.1-4.2) 09/06/19 15:00 Albumin/Globulin Ratio 1.0 (1.0-2.2) 09/06/19 15:00 Lipase 27 U/L (22-51) 09/06/19 15:00 Urine Color YELLOW 09/06/19 15:25 Urine Clarity HAZY (CLEAR) 09/06/19 15:25 Urine pH 6.0 PH (5.0-7.5) 09/06/19 15:25 Ur Specific [place] 1.025 (1.002-1.030) 09/06/19 15:25 Urine Protein NEGATIVE mg/dL (NEGATIVE) 09/06/19 15:25 Urine Glucose (UA) NEGATIVE mg/dL (NEGATIVE) 09/06/19 15:25 Urine Ketones 40 mg/dL (NEGATIVE) H 09/06/19 15:25 Urine Occult Blood TRACE-INTA (NEGATIVE) 09/06/19 15:25 Urine Nitrite NEGATIVE (NEGATIVE) 09/06/19 15:25 Urine Bilirubin SMALL (NEGATIVE) H 09/06/19 15:25 Urine Urobilinogen 0.2 (NORMAL) E.U./dL (NORMAL) 09/06/19 15:25 Ur Leukocyte Esterase NEGATIVE (NEGATIVE) 09/06/19 15:25 Urine RBC 0-5 /HPF (0-5) 09/06/19 15:25 Urine WBC 0-3 /HPF (0-5) 09/06/19 15:25 Ur Squamous Epith Cells FEW Squamous (<= Few) 09/06/19 15:25 Urine Bacteria Few /HPF (None Seen) 09/06/19 15:25 Urine Mucus Moderate Strands 09/06/19 15:25 Ur Microscopic Review INDICATED 09/06/19 15:25 Urine Culture Comments NOT INDICATED 09/06/19 15: Urine HCG, Qual NEGATIVE 09/06/19 15: ABX Reporting Has patient been on IV antibiotics over the past 48 hours?: No
[2019-09-08] MEDS ORDERED: ACETAMINOPHEN 325 MG TABLET PO PRN (07:41)
[2019-09-08] MEDS: ACETAMINOPHEN 325 MG TABLET PO SCH ×3 (08:21→20:22)
[2019-09-08] MEDS: IBUPROFEN 600 MG TABLET PO SCH ×4 (08:22→23:46)
--- NOTE | 2019-09-08 09:09 | PROVIDER PROGRESS NOTE ---
Subjective - Prog Note Date Prog Note Date: 09/08/19 Prog Note Time: 09:06 - Subjective Pt reports feeling: Improved Subjective: main problem in addition to her LLQ pain was the nausea from opiates. She requested morphine change to dilaudid. Dilaudid works for pain control but now too much nausea and she asked for morphine back last night . She is so hungry Current Medications - Current Medications Current Medications: Active Medications Acetaminophen (Tylenol) 650 mg PO Q6H [facility] Last Admin: 09/08/19 08:21 Dose: 650 mg Enoxaparin Sodium (Lovenox) 40 mg SUBQ DAILY [facility] Last Admin: 09/07/19 09:10 Dose: 40 mg Ciprofloxacin (Cipro 400 Mg/200 Ml) 200 mls @ 200 mls/hr IV Q12H [facility] Last Infusion: 09/08/19 07:06 Dose: Infused Metronidazole (Flagyl 500 Mg/100 Ml) 500 mg in 100 mls @ 100 mls/hr IV Q8H [facility] Last Infusion: 09/08/19 02:47 Dose: Infused Promethazine HCl 25 mg/ Sodium (Chloride) 51 mls @ 100 mls/hr IV Q6H PRN PRN Reason: Nausea / Vomiting Ibuprofen (Motrin) 600 mg PO Q6HR [facility] Last Admin: 09/08/19 08:22 Dose: 600 mg Ondansetron HCl (Zofran Inj) 4 mg IVP Q6HR PRN PRN Reason: Nausea / Vomiting Last Admin: 09/07/19 14:10 Dose: 4 mg Ondansetron HCl (Zofran Odt) 4 mg TL Q6HR PRN PRN Reason: Nausea / Vomiting Prochlorperazine Edisylate (Compazine Inj) 10 mg IVP Q4HR PRN PRN Reason: Nausea / Vomiting Last Admin: 09/07/19 15:31 Dose: 10 mg Sodium Chloride (Normal Saline Flush 0.9%) 10 ml IVP PRN PRN PRN Reason: NEEDED PER PROVIDER ORDERS Sodium Chloride (Normal Saline Flush 0.9%) 10 ml IVP 0100,0900,1700 [facility] Last Admin: 09/08/19 01:33 Dose: 10 ml Melatonin 6 mg PO QPM PRN 09/07/19 Multivitamin [Theragran] 1 each PO DAILY 09/07/19 Objective - Vital Signs/Intake & Output Reviewed Vital Signs: Yes Vital Signs: Vital Signs x48h Temp Pulse Resp BP Pulse Ox 09/08/19 07:58 36.8 C 58 L 18 124/78 97 Intake & Output: Intake & Output 09/05/19 09/06/19 09/07/19 09/08/19 23:59 23:59 23:59 23:59 Intake Total 2091.666 2863.607 594.727 Output Total 800 Balance 6199.844 2917.607 594.727 - Objective General Appearance: positive: No acute distress, Alert Eyes Bilateral: positive: PERRL, EOMI ENT: positive: No signs of dehydration Neck: positive: No JVD Respiratory: positive: Chest non-tender, No respiratory distress. negative: Wheezes, Rales, Rhonchi Abdomen: positive: No organomegaly, Nml bowel sounds, No distention, Tenderness (LLQ still present but the intensity much less). negative: Guarding, Rebound Skin: positive: Warm, Dry Extremities: positive: Non-tender, Full ROM, No pedal edema Neurologic/Psychiatric: positive: Oriented x3, CN's nml (2-12), Motor nml - Lab Results Fish Bones: 09/07/19 05:55 09/08/19 05:25 Other Labs: Lab Results x24hrs 09/08/19 Range/Units 05:25 Sodium 138 (135-145) mmol/L Potassium 3.7 (3.5-5.0) mmol/L Chloride 107 (101-111) mmol/L Carbon Dioxide 22 (21-32) mmol/L Anion Gap 9.0 (6-13) BUN 5 L (6-20) mg/dL Creatinine 0.6 (0.4-1.0) mg/dL Estimated GFR (MDRD) 106 (>89) Glucose 95 (70-100) mg/dL Calcium 8.8 (8.5-10.3) mg/dL ABX Reporting Has patient been on IV antibiotics over the past 48 hours?: Yes Assessment/Plan - Problem List (1) Diverticulitis Impression: Patient was admitted for left lower abdominal pain. This is her 5th episode of diverticulitis since 2016. She never followed up with a general surgeon largely in part because she has two young kids and was going through a divorce. She has been experiencing pain in her lower abdomen since Sunday, and she thought the pain was menstrual cramps. As the pain progressed, she realized that this was similar to her previous diverticulitis flares and she went on a clear liquid diet. On Sunday, when the left lower abdominal pain was not resolving, she can to the ER. CT abdomen revealed an abscess, Hinchey classification 1B. She was started on IV zosyn and vancomycin and admitted. No fevers, no elevated WBCs on admission and thru this stay. Pain requiring opiates has been the main problem and the nausea from the opiates. She was seen by Dr. Arvizu today and case discussed with him. Plan: 1. Was on IV zosyn and vancomycin and we will switch to po today. 2. Vancomycin trough being followed by pharmacy 3. advance to regular diet 4. Repeat CT abdomen in 72 hours to assess abscess was planned but Dr. Arvizu feels this isn't indicated right now and she can go home once she tolerates her diet. (2) Postherpetic neuralgia Impression: stable. no change.
[2019-09-08] MEDS: metroNIDAZOLE 250 MG TABLET PO SCH ×2 (10:12→17:53)
[2019-09-08] MEDS: ENOXAPARIN 40 MG/0.4 ML SYRINGE SUBQ SCH (10:12)
[2019-09-08] MEDS: SACCHAROMYCES BOULARDII 250 MG CAPSULE PO SCH (17:53)
[2019-09-08] MEDS: CIPROFLOXACIN 250 MG TABLET PO SCH (20:22)
[2019-09-08] MEDS ORDERED: traZODone 50 MG TABLET PO SCH (21:00)
[2019-09-09] MEDS: metroNIDAZOLE 250 MG TABLET PO SCH (02:20)
[2019-09-09] MEDS: ACETAMINOPHEN 325 MG TABLET PO SCH ×2 (02:20→09:29)
[2019-09-09] MEDS: IBUPROFEN 600 MG TABLET PO SCH (06:03)
[2019-09-09 07:38] VITALS: BP 123/90
[2019-09-09] MEDS ORDERED: diphenhydrAMINE 25 MG CAPSULE PO STA (07:39)
--- NOTE | 2019-09-09 07:53 | Discharge Plan ---
Discharge Plan Problem Reviewed?: Yes Disposition: Home, Self Care Condition: Stable Prescriptions: Ciprofloxacin [Cipro] 250 mg PO BID #8 tablet metroNIDAZOLE [Flagyl] 500 mg PO TID #12 tablet Saccharomyces Boulardii [Daily Probiotic] 250 mg PO BID #8 capsule Diet: Regular (Low fiber diet) Activity Restrictions: Activity as Tolerated Shower Restrictions: No Driving Restrictions: No Instruction Topics: Metronidazole injection, Ciprofloxacin injection, Diverticulosis Diverticulitis Health Concerns: Admitted with pain and dehydration related to diverticulitis, and a diverticular abscess was also found, managed conservatively with antibiotics, IV fluids, pain medications and no surgery. Plan of Treatment: Finish the course of treatment with 2 antibiotics and the probiotic pills. These new prescriptions were electronically sent to your [facility] pharmacy. If the rash is no better, see your PCP. Advance your diet to a low residue, low fiber diet. See Dr. Arvizu the surgeon in follow-up in 2 weeks (call his office for appointment at [phone]). Care Goals: Improvement in symptoms and stabilization are the goals. Assessment: Patient understands and is in agreement. No Smoking: If you smoke, Please STOP! Call for help. Follow-up with: Magan Arvizu MD [Provider Admit Priv/Credential] -
--- NOTE | 2019-09-09 08:04 | DISCHARGE SUMMARY ---
"Discharge Summary Admit Date: 09/06/19 Discharge Date: 09/09/19 Discharging Provider: Dr Abbi Sexton Primary Care Provider: Dr Kayleen Grant Code Status: Attempt Resuscitation Condition at Discharge: Stable Discharge Disposition: 01 Home, Self Care - DIAGNOSES Admission Diagnoses: 1) Diverticulitis 2) Post-herpetic neuralgia, of scalp Discharge Diagnoses with Status of Each Condition: See below - HPI History of Present Illness: From the admission H&P of Dr Veliz: Ms. Alec Ovalle is a 49 year old with past medical history of multiple episodes of diverticulitis, section x3, and post-herpetic neuralgia on herb scalp starting 1 week ago. On Sunday the patient said that she was about to get her menstrual cycle and was starting to experience lower abdominal pain which she was attributing to cramps. The pain continued and so she started a clear liquid diet at that time. She reports being very uncomfortable in the morning, but has continued to work full-time and found relief with distraction and a warm pack to the area. She had a lot of pain after she urinates after decompression of her bladder. Today, her pain was more constant throughout the day and wasn't getting better, so at the urging of her fiance, she came to the hospital. Patient has been seen in the ER before for diverticulitis flares, but has not seen General Surgery in the outpatient setting because she had two young children and was going through a divorce and did not have the time. In the ER, CT imaging was done that showed diverticulitis with surrounding abscess. She was afebrile and WBC normal. - CONSULTS | PROCEDURES Consultations: Dr Magan Arvizu - HOSPITAL COURSE Hospital Course: (1) Diverticulitis Patient was admitted for left lower abdominal pain. This is her 5th episode of diverticulitis since 2016. She never followed up with a general surgeon largely in part because she has two young kids and was going through a divorce. She has been experiencing pain in her lower abdomen since Sunday, and she thought the pain was menstrual cramps. As the pain progressed, she realized that this was similar to her previous diverticulitis flares and she went on a clear liquid diet. On Sunday, when the left lower abdominal pain was not resolving, she ca me to the ER. CT abdomen revealed an abscess, Hinchey classification 1B. She was admitted and started on IV zosyn and IV vancomycin. No fevers, no elevated WBCs on admission and throughout this stay. The LLQ pain requiring opiates was the main problem and the nausea from the opiates. She was seen by Dr. Arvizu of General Surgery, and he advised to continue medical management with antibiotics and bowel rest. Her symptoms improved, opiates stopped, diet was advanced. She was on IV zosyn and IV vancomycin, then transitioned to oral Cipro and Flagyl and was discharged home on these plus probiotics with a plan to see Dr Arvizu in 2weeks in follow-up for colonoscopy and possible elective sigmoid colectomy. (2) Postherpetic neuralgia This was stable. 3) Rash On the morning of discharge, she complained of a pruritic rash of her back. It was evaluated and felt to not be a diffuse rash consistent with medication allergy, but she had 5-10 small, red maculo-pappules, possibly from her bed linens. She got 1 dose of po Benadryl which provided relief. Ahe was advised to see her PCP if there was worsening. - ALLERGIES Allergies/Adverse Reactions: Allergies Allergy/AdvReac Type Severity Reaction Status Date / Time amoxicillin [Amoxicillin] AdvReac Unknown Rash Verified 01/21/19 21:05 Penicillins AdvReac Unknown Rash Verified 01/21/19 21:05 - MEDICATIONS Home Medications: Ambulatory Orders Medication Instructions Recorded Confirmed Melatonin 6 mg PO QPM PRN 09/07/19 09/07/19 Multivitamin [Theragran] 1 each PO DAILY 09/07/19 09/07/19 Ciprofloxacin [Cipro] 250 mg PO BID #8 tablet 09/09/19 Saccharomyces Boulardii [Daily 250 mg PO BID #8 capsule 09/09/19 Probiotic] metroNIDAZOLE [Flagyl] 500 mg PO TID #12 tablet 09/09/19 - PHYSICAL EXAM AT DISCHARGE General Appearance: positive: No acute distress, Alert Eyes Bilateral: positive: Normal inspection, EOMI ENT: positive: No signs of dehydration Neck: positive: Nml inspection Respiratory: positive: No respiratory distress Cardiovascular: positive: Regular rate & rhythm Abdomen: positive: Non-tender, Nml bowel sounds, No distention Skin: positive: Color nml Extremities: positive: No pedal edema - LABS Result Diagrams: 09/07/19 05:55 09/08/19 05:25 - DIAGNOSTIC IMAGING Diagnostic Imaging Results: Final report reviewed - FOLLOW UP Follow Up: See Dr Magan Arvizu (Gen Surgeon) in 2 weeks in office. - TIME SPENT Time Spent in Discharge (Minutes): 30"
[2019-09-09] MEDS: SACCHAROMYCES BOULARDII 250 MG CAPSULE PO SCH (09:29)
[2019-09-09] MEDS: CIPROFLOXACIN 250 MG TABLET PO SCH (09:29)
[2019-09-09] MEDS: ENOXAPARIN 40 MG/0.4 ML SYRINGE SUBQ SCH ×2 (09:29→09:31)
[2019-09-09] MEDS: SODIUM CHLORIDE FLUSH 0.9% 10 ML SYRINGE IVP SCH (09:31)
== END 2019-09-09 10:15 | disposition home or self-care (01) | DRG 392 ==
LOC: ED 14:23 → MS2 17:10
PROVIDERS: ADMIT Specialist; ATTEND Internal Medicine
DX: K57.20 Diverticulitis of large intestine with perforation and abscess without bleeding (principal); B02.29 Other postherpetic nervous system involvement; R11.0 Nausea; T40.605A Adverse effect of unspecified narcotics, initial encounter; Y92.230 Patient room in hospital as the place of occurrence of the external cause; R21 Rash and other nonspecific skin eruption; Z63.0 Problems in relationship with spouse or partner; Z91.19 Patient's noncompliance with other medical treatment and regimen; Z72.89 Other problems related to lifestyle
CPT/HCPCS: 36415; 74177; 80048; 80053; 81001; 81025; 83690; 85025; 96361; 96374; 99284; 99285; A9270; J1170; J1650; J7120; Q9967; 81003; 87086

== ENCOUNTER 2019-10-06 13:24 | Outpatient (CLI) | payer BC ==
[2019-10-06] MEDS ORDERED: IOVERSOL 320 100 ML VIAL IVP ONE ×2 (13:36→14:46)
[2019-10-06] MEDS ORDERED: IOVERSOL 320 50 ML VIAL ONE (13:36)
[2019-10-06] MEDS ORDERED: IOVERSOL 320 50 ML VIAL PO ONE (14:46)
--- NOTE | 2019-10-06 15:14 | CT Report ---
Reason: COLONIC DIVERTICULAR ABSCESS Procedure Date: 10/06/2019 Accession Number: [id number] / [id number] Procedure: CT - Abdomen/Pelvis W CPT Code: Addended Final Report FULL RESULT: EXAM: CT ABDOMEN AND PELVIS EXAM DATE: 10/06/2019 02:44 PM. CLINICAL HISTORY: Colonic diverticular abscess. COMPARISONS: ABDOMEN/PELVIS W/ 09/06/2019 4:24 PM. TECHNIQUE: Routine helical CT imaging was performed through the abdomen and pelvis. IV contrast: OPTI 320 100 mL. Enteric contrast: Yes. Reconstructions: Coronal and sagittal. In accordance with CT protocol optimization, one or more of the following dose reduction techniques were utilized for this exam: automated exposure control, adjustment of mA and/or KV based on patient size, or use of iterative reconstructive technique. FINDINGS: Lung Bases: Unremarkable. Liver: Normal. No masses. Gallbladder/Bile Ducts: Unremarkable. Spleen: Normal. Pancreas: Normal. Adrenal Glands: Normal. Kidneys: No hydronephrosis. Symmetric enhancement. Stable appearance of right renal cyst. Peritoneal Cavity/Bowel: No bowel obstruction. Significant interval decrease of mural thickening and pericolonic fat stranding at the proximal sigmoid. There is a small remnant extraluminal fluid collection at site of previously identified abscess. Today this measures 1 x 1 cm, previously 1 x 2.7 cm. No new or enlarging fluid collections. No free air. Pelvic Organs: Approximately 1 cm exophytic lucency off the anterior aspect of the uterus as before, consistent with a fibroid. The contour of the urinary bladder within normal limits. No abnormal cyst or mass lesions in either adnexa. Vasculature: No aneurysms or other significant abnormality. Bones: No significant abnormality. Other: None. IMPRESSION: Resolving sigmoid diverticulitis, with interval decrease of a non-drainable extraluminal fluid collection adjacent to the proximal sigmoid. RADIA The call report notification system was initiated by Dr. Reddy Simmons at 03:14 PM on 10/06/2019. ADDENDUM: 10/06/19 15:45 The above call report findings were discussed with Dr. Dela Cruz by Dr. Reddy Simmons at 03:45 PM on 10/06/2019.
== END 2019-10-06 13:25 | disposition home or self-care (01) ==
LOC: DI 13:24
PROVIDERS: ATTEND Surgery
DX: K57.20 Diverticulitis of large intestine with perforation and abscess without bleeding (principal)
CPT/HCPCS: 74177; Q9967

== ENCOUNTER 2019-12-04 14:41 | Outpatient (CLI) | payer BC | END 2019-12-04 14:42 | disposition home or self-care (01) | LOC: COV 14:41 | PROVIDERS: ATTEND Family Medicine | DX: R05 Cough (principal); R50.9 Fever, unspecified | CPT/HCPCS: 81599 ==

== ENCOUNTER 2020-01-27 10:38 | Outpatient (CLI) | payer BC, OTHER ==
[2020-01-27 12:11] LABS: BASOPHILS # (AUTO) 0.1 10^3/uL (0.0-0.1); BASOPHILS % (AUTO) 0.6 %; EOSINOPHILS # (AUTO) 0.3 10^3/uL (0.0-0.7); EOSINOPHILS % (AUTO) 2.9 %; HGB - HEMOGLOBIN 14.7 g/dL (12.0-16.0); LYMPHOCYTES # (AUTO) 1.9 10^3/uL (1.5-3.5); LYMPHOCYTES % (AUTO) 22.5 %; MEAN CORPUSCULAR HEMOGLOBIN 33.5 pg (27.0-31.0); MEAN CORPUSCULAR HGB CONC 33.4 g/dL (32.0-36.0); MEAN CORPUSCULAR VOLUME 100.2 fL (81.0-99.0); MEAN PLATELET VOLUME 9.4 fL (7.9-10.8); MONOCYTES # (AUTO) 0.6 10^3/uL (0.0-1.0); MONOCYTES % (AUTO) 7.5 %; NEUTROPHILS # (AUTO) 5.7 10^3/uL (1.5-6.6); NEUTROPHILS % (AUTO) 66.1 %; PLT - PLATELET COUNT 288 10^3/uL (130-450); RED BLOOD COUNT 4.39 10^6/uL (4.20-5.40); RED CELL DISTRIBUTION WIDTH 12.2 % (12.0-15.0); WHITE BLOOD COUNT 8.6 x10^3/uL (4.8-10.8)
[2020-01-27 12:23] LABS: BILIRUBIN,URINE NEGATIVE (NEGATIVE); GLUCOSE, URINE (UA) NEGATIVE (NEGATIVE); KETONES,URINE (UA) 40 mg/dL (NEGATIVE); LEUKOCYTE ESTERASE, URINE NEGATIVE (NEGATIVE); NITRITE,URINE NEGATIVE (NEGATIVE); OCCULT BLOOD,URINE NEGATIVE (NEGATIVE); PH,URINE 5.5 PH (5.0-7.5); PROTEIN,URINE TRACE mg/dL (NEGATIVE); UROBILINOGEN,URINE 1 (NORMAL) E.U./dL (NORMAL)
[2020-01-27 12:33] LABS: CLARITY,URINE SL. CLOUDY (CLEAR)
[2020-01-27 12:35] LABS: ALBUMIN 3.8 g/dL (3.2-5.5); ALBUMIN/GLOBULIN RATIO 0.9 (1.0-2.2); BILIRUBIN,TOTAL 0.9 mg/dL (0.2-1.0); CALCIUM 9.4 mg/dL (8.5-10.3); CREATININE 0.5 mg/dL (0.4-1.0); TOTAL PROTEIN 7.9 g/dL (6.7-8.2)
[2020-01-27 12:40] LABS: BACTERIA,URINE Few /HPF (None Seen); CRYSTALS,URINE 26-50 Ca Oxalate /LPF; MUCUS,URINE Few Strands; RBC,URINE None Seen /HPF (0-5); SQUAMOUS EPITHELIAL CELL,UR MOD Squamous (<= Few)
== END 2020-01-27 23:59 | disposition home or self-care (01) ==
LOC: LAB.WCP 10:38
PROVIDERS: ATTEND Registered Nurse
DX: K57.92 Diverticulitis of intestine, part unspecified, without perforation or abscess without bleeding (principal)
CPT/HCPCS: 36415; 80053; 81001; 85025; 87086

== ENCOUNTER 2020-01-27 13:33 | Inpatient (IN) | payer BC, OTHER ==
[2020-01-27] MEDS ORDERED: SODIUM CHLORIDE 0.9% 1,000 ML IV STA (13:54)
[2020-01-27] MEDS ORDERED: HYDROmorphone 1 MG/ML CARPUJECT IVP STA (13:54)
[2020-01-27] MEDS ORDERED: ONDANSETRON 4 MG/2 ML VIAL IVP STA (13:54)
--- NOTE | 2020-01-27 14:02 | ED Physician Documentation ---
History of Present Illness - Stated complaint Stated Complaint: ABD PAIN - Chief complaint Chief Complaint: Abd Pain - History obtained from History obtained from: Patient - History of Present Illness Timing: Prior to arrival Pain level max: 9 Pain level now: 7 Quality: sharp Improved by: nothing Associated symptoms: constipation, nausea Review of Systems Constitutional: reports: Fatigue. 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/TRANSPORT NURSE: Other : Kidney stones HEENT: Other Psych: None Musculoskeletal: None Derm: Herpes zoster - Past Surgical History Past Surgical History: Yes Ortho: Arthroscopic surgery /FLIGHT/TRANSPORT NURSE: section, Tubal ligation Derm: Skin grafts - Present Medications Home Medications: Ambulatory Orders Medication Instructions Recorded Confirmed Melatonin 6 mg PO QPM PRN 09/07/19 09/07/19 Multivitamin [Theragran] 1 each PO DAILY 09/07/19 09/07/19 Ciprofloxacin [Cipro] 250 mg PO BID #8 tablet 09/09/19 Saccharomyces Boulardii [Daily 250 mg PO BID #8 capsule 09/09/19 Probiotic] metroNIDAZOLE [Flagyl] 500 mg PO TID #12 tablet 09/09/19 - Allergies Allergies/Adverse Reactions: Allergies Allergy/AdvReac Type Severity Reaction Status Date / Time amoxicillin [Amoxicillin] AdvReac Unknown Rash Verified 01/27/20 13:36 Penicillins AdvReac Unknown Rash Verified 01/27/20 13:36 - Social History Does the pt smoke?: No Smoking Status: Never smoker Does the pt drink ETOH?: Yes Does the pt have substance abuse?: No - Immunizations Immunizations are current?: Yes - POLST Patient has POLST: No POLST Status: Full Code PD ED PE NORMAL - General General: Alert and oriented X 3, No acute distress - Cardiac Cardiac: RRR, No murmur - Respiratory Respiratory: No respiratory distress, Clear bilaterally - Abdomen Abdomen: Other (focal tenderness with rebound guarding across the LUQ, LLQ. Peritoneal exam). No: Normal bowel sounds - Back Back: No CVA TTP - Derm Derm: Normal color, Warm and dry - Extremities Extremities: No deformity, No edema, No calf tenderness / cord - Neuro Neuro: Alert and oriented X 3, computer bookkeeper 2-12 intact, No motor deficit, No sensory deficit, Normal speech Results - Vitals Vitals: Vital Signs - 24 hr 01/27/20 13:36 Temperature 36.5 C Heart Rate 67 Respiratory 14 Rate Blood Pressure 160/90 H O2 Saturation 99 Oxygen O2 Source Room air - Labs Labs: Laboratory Tests 01/27/20 01/27/20 01/27/20 13:55 14:08 14:08 WBC 10.1 RBC 4.29 Hgb 14.9 Hct 43.0 MCV 100.2 H MCH 34.7 H MCHC 34.7 RDW 12.3 Plt Count 286 MPV 8.8 Neut # (Auto) 7.3 H Lymph # (Auto) 1.9 Swisher # (Auto) 0.5 Eos # (Auto) 0.2 Baso # (Auto) 0.1 Absolute Nucleated RBC 0.00 Nucleated RBC % 0.0 PT INR Sodium 135 Potassium 3.3 L Chloride 100 L Carbon Dioxide 23 Anion Gap 12.0 BUN 10 Creatinine 0.7 Estimated GFR (MDRD) 89 Glucose 112 H Calcium 9.5 Total Bilirubin 1.0 AST 24 ALT 19 Alkaline Phosphatase 79 Total Protein 8.4 H Albumin 4.1 Globulin 4.3 H Albumin/Globulin Ratio 1.0 Lipase 26 Urine Color DARK YELLOW Urine Clarity SL. CLOUDY Urine pH 5.5 Ur Specific Dulzura >=1.030 H Urine Protein TRACE Urine Glucose (UA) NEGATIVE Urine Ketones >=80 H Urine Occult Blood TRACE-INTA Urine Nitrite NEGATIVE Urine Bilirubin NEGATIVE Urine Urobilinogen 1 (NORMAL) Ur Leukocyte Esterase NEGATIVE Urine RBC 0-5 Urine WBC 4-5 Ur Squamous Epith Cells MANY Squamous H Urine Bacteria Moderate H Ur Microscopic Review INDICATED Urine Culture Comments NOT INDICATED 01/27/20 14:08 WBC RBC Hgb Hct MCV MCH MCHC RDW Plt Count MPV Neut # (Auto) Lymph # (Auto) Swisher # (Auto) Eos # (Auto) Baso # (Auto) Absolute Nucleated RBC Nucleated RBC % PT 12.7 H INR 1.1 Sodium Potassium Chloride Carbon Dioxide Anion Gap BUN Creatinine Estimated GFR (MDRD) Glucose Calcium Total Bilirubin AST ALT Alkaline Phosphatase Total Protein Albumin Globulin Albumin/Globulin Ratio Lipase Urine Color Urine Clarity Urine pH Ur Specific Dulzura Urine Protein Urine Glucose (UA) Urine Ketones Urine Occult Blood Urine Nitrite Urine Bilirubin Urine Urobilinogen Ur Leukocyte Esterase Urine RBC Urine WBC Ur Squamous Epith Cells Urine Bacteria Ur Microscopic Review Urine Culture Comments - Rads (name of study) CT ABd/Pelvis Radiology: Prelim report reviewed (recurrent diverticulitis wihtout abscess formation), Final report received, Other (1. Acute diverticulitis, recurrent, at the anterior sigmoid colon ) PD MEDICAL DECISION MAKING - ED course Complexity details: reviewed old records, reviewed results, re-evaluated patient, considered differential, d/w patient, d/w PMD, d/w corporate health consultant ED course: 49 year old female here with recurrent diverticulitis who has failed outpatient abx for the last week (cipro). She was admitted in August 2019 for similar and had had multiple courses of outpatient abx in the interim secondary to recurrent left sided abdominal pain - Labs today reviewed and showed no acute focal abnormality - CT scan revealed recurrent diverticulitis without abscess formation. - I initially spoke with Dr. Christian who felt admission was appropriate, but to Hospitalist services. I spoke with hospitalist mental retardation nurse who agreed to admit to service with surgical consult as there is no surgical abdomen present today - pt given zosyn 4.5 gm IV X1 in the ED; further abx at discretion of admitting service - pain improved with Dilaudid in the emergency department - pt was discussed in the emergency department with Dr. Yañez Departure - Departure Clinical Impression: Failure of outpatient treatment, Diverticulitis large intestine w/o perforation or abscess w/o bleeding Record reviewed to determine appropriate education?: Yes
[2020-01-27] MEDS ORDERED: IOVERSOL 320 100 ML VIAL IVP ONE ×2 (14:06→14:52)
[2020-01-27 14:15] LABS: GLUCOSE, URINE (UA) NEGATIVE (NEGATIVE); KETONES,URINE (UA) >=80 mg/dL (NEGATIVE); LEUKOCYTE ESTERASE, URINE NEGATIVE (NEGATIVE); NITRITE,URINE NEGATIVE (NEGATIVE); OCCULT BLOOD,URINE TRACE-INTA (NEGATIVE); PH,URINE 5.5 PH (5.0-7.5); PROTEIN,URINE TRACE mg/dL (NEGATIVE); UROBILINOGEN,URINE 1 (NORMAL) E.U./dL (NORMAL)
[2020-01-27 14:15] LABS: BASOPHILS # (AUTO) 0.1 10^3/uL (0.0-0.1); BASOPHILS % (AUTO) 0.6 %; EOSINOPHILS # (AUTO) 0.2 10^3/uL (0.0-0.7); EOSINOPHILS % (AUTO) 1.9 %; HGB - HEMOGLOBIN 14.9 g/dL (12.0-16.0); LYMPHOCYTES # (AUTO) 1.9 10^3/uL (1.5-3.5); MEAN CORPUSCULAR HEMOGLOBIN 34.7 pg (27.0-31.0); MEAN CORPUSCULAR HGB CONC 34.7 g/dL (32.0-36.0); MEAN CORPUSCULAR VOLUME 100.2 fL (81.0-99.0); MEAN PLATELET VOLUME 8.8 fL (7.9-10.8); MONOCYTES # (AUTO) 0.5 10^3/uL (0.0-1.0); MONOCYTES % (AUTO) 5.4 %; NEUTROPHILS # (AUTO) 7.3 10^3/uL (1.5-6.6); NEUTROPHILS % (AUTO) 72.7 %; PLT - PLATELET COUNT 286 10^3/uL (130-450); RED BLOOD COUNT 4.29 10^6/uL (4.20-5.40); RED CELL DISTRIBUTION WIDTH 12.3 % (12.0-15.0); WHITE BLOOD COUNT 10.1 x10^3/uL (4.8-10.8)
[2020-01-27] MEDS ORDERED: PIPERACILLIN/TAZOBACTAM 4.5 GM in SODIUM CHLORIDE 0.9% MINIBAG 100 ML IV STA (14:17)
[2020-01-27 14:21] LABS: BACTERIA,URINE Moderate /HPF (None Seen); BILIRUBIN,URINE NEGATIVE (NEGATIVE); CLARITY,URINE SL. CLOUDY (CLEAR); ICTOTEST,URINE NEGATIVE; RBC,URINE 0-5 /HPF (0-5); SQUAMOUS EPITHELIAL CELL,UR MANY Squamous (<= Few)
[2020-01-27 14:22] LABS: INR 1.1 (0.8-1.2); PT - PROTHROMBIN TIME 12.7 secs (9.9-12.6)
[2020-01-27 14:28] LABS: ALBUMIN 4.1 g/dL (3.2-5.5); CALCIUM 9.5 mg/dL (8.5-10.3); CREATININE 0.7 mg/dL (0.4-1.0); TOTAL PROTEIN 8.4 g/dL (6.7-8.2)
--- NOTE | 2020-01-27 15:14 | CT Report ---
Reason: LLQ Abdominal pain, diverticulitis suspected Procedure Date: 01/27/2020 Accession Number: [id number] / [id number] Procedure: CT - Abdomen/Pelvis W CPT Code: Final Report FULL RESULT: PROCEDURE: Abdomen/Pelvis W INDICATIONS: LLQ Abdominal pain, diverticulitis suspected CONTRAST: IV CONTRAST: Optiray 320 ml: 100 PO CONTRAST: *NO PO CONTRAST TECHNIQUE: After the administration of oral and intravenous contrast, 5 mm thick sections acquired from the diaphragms to the symphysis. 5 mm thick coronal and sagittal reformats were acquired. For radiation dose reduction, the following was used: automated exposure control, adjustment of mA and/or kV according to patient size. COMPARISON: Prior CT abdomen/pelvis 10/06/2019, 09/06/2019, 09/01/2018. FINDINGS: Image quality: Excellent. ABDOMEN: Lung bases: Lung bases are clear. Heart size is normal. Solid organs: Liver and spleen are normal in size and enhancement. Gallbladder appears normal Biliary system is non dilated. Pancreas enhances normally. No adrenal nodules. Kidneys demonstrate normal size and enhancement, without hydronephrosis. There is a mildly complex cyst at the right anterolateral mid renal cortex present on multiple prior CT scans with variable degree of complexity likely due to volume averaging. This structure could be further assessed if clinically desired by ultrasound to assist in establishing simple internal character. Peritoneum and bowel: Bowel loops demonstrate normal wall thickness and caliber. No free fluid or air. Nodes and vessels: No retroperitoneal or mesenteric adenopathy by size criteria. Aorta and inferior vena cava are normal in size. Miscellaneous: No ventral hernias. PELVIS: Genitourinary: Bladder wall thickness is normal. Miscellaneous: No inguinal hernias or adenopathy. Previously resolved anterior sigmoid diverticulitis with reference to prior CT scanning, including resolution of a small peridiverticular abscess. The current study shows recurrent diverticulitis at the junction of the descending [id number] colon best seen centered on CT series 3 image 58. A peridiverticular abscess is not present. Additional sigmoid diverticulosis is present elsewhere, without concurrent inflammation. Bones: No suspicious bony lesions. No vertebral body compression fractures. IMPRESSION: 1. Acute diverticulitis, recurrent, at the anterior sigmoid colon junction with the descending colon, without peridiverticular abscess. This area has been previously involved by diverticulitis which had resolved. Additional mild to moderate sigmoid diverticulosis elsewhere. 2. Mildly complex right mid renal cortical cyst likely due to volume averaging. A cyst in this area has been present on multiple prior studies having a variable appearance due to slight differences in scan level. Ultrasound scanning of that area electively as a limited single organ scan could be obtained for more accurate assessment of the internal character of that cystic structure, which measures up to 1.5 cm in diameter. Reviewed by: Michael Batres MD on 01/27/2020 3:13 PM PDT Approved by: Michael Batres MD on 01/27/2020 3:13 PM PDT Station ID: [id number]
[2020-01-27] MEDS ORDERED: ACETAMINOPHEN 325 MG TABLET PO PRN (16:11)
--- NOTE | 2020-01-27 16:22 | HISTORY & PHYSICAL EXAMINATION ---
Chief Complaint - Chief Complaint Chief Complaint: abdominal pain History of Present Illness - History Obtained From History obtained from: pt - History of Present Illness HPI Comment/Other: Ms. Alec Ovalle is a 49-year old female with a past medical history significant of multiple episodes of diverticulitis, section x3, and post-herpetic neuralgia who present ER complain for left lower quadrant abdominal pain. Pt reports her left lower quadrant abdominal pain remained for over a week. She Saw PCP and was told to come to the ED for Evaluation for possible diverticulitis. pt had recurrent diverticulitis who has failed outpatient antibiotic for the last week with cipro and Flagyl. She was admitted in August 2019 for similar medical problem. she has been multiple courses of diverticulitis with recurrent left sided abdominal pain. CT scan revealed recurrent diverticulitis without abscess formation. Dr. Christian surgeon was called by ER for surgery consulting. Labs today reviewed was unremarkable. Patient was started antibiotics Zosyn in the ER. Patient's abdominal pain is already improved after she was given pain medication. Patient denies fever, chill, chest pain, shortness of breathing. P atient is admitted for further medical management. History - Past Medical History Cardiovascular: reports: None Respiratory: reports: None Neuro: reports: Other Endocrine/Autoimmune: reports: None GI: reports: Diverticulitis OPERATIONS ANALYST: reports: Other : reports: Kidney stones HEENT: reports: Other Psych: reports: None Musculoskeletal: reports: None Derm: reports: Herpes zoster MRSA Hx?: No - Past Surgical History Ortho: reports: Arthroscopic surgery /OPERATIONS ANALYST: reports: section, Tubal ligation Derm: reports: Skin grafts - Family & Social History Family History: Mother: Alive and Well, Diabetes, Type 2 (Borderline DM2), Hype rtension, Father: , Alzheimer's Disease, Cancer, Hypertension Family History Comment/Other: No change. Agree. 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 Lives with her significant other and her children. Denies any smoking, alcohol abuse. She does drink occasionally. - Substance History Use: Uses substance without health or social issues: Alcohol (2 glasses of wine per day), Cannabis (1-2 times per week) - POLST Patient has POLST: No POLST Status: Full Code Meds/Allgy - Home Medications Home Medications: Ambulatory Orders Medication Instructions Recorded Confirmed Melatonin 6 mg PO QPM PRN 09/07/19 01/27/20 Multivitamin [Theragran] 1 each PO DAILY 09/07/19 01/27/20 Promethazine [Phenergan] 25 mg PO Q6H PRN 01/27/20 01/27/20 SUMAtriptan succinate [Sumatriptan 100 mg PO Q2H PRN MDD 200 mg 01/27/2001/26 Succinate] diazePAM [Diazepam] 5 mg PO DAILY PRN 01/27/20 01/27/20 - Allergies Allergies/Adverse Reactions: Allergies Allergy/AdvReac Type Severity Reaction Status Date / Time amoxicillin [Amoxicillin] AdvReac Unknown Rash Verified 01/27/20 13:36 Penicillins AdvReac Unknown Rash Verified 01/27/20 13:36 Review of Systems - Constitutional Constitutional: denies: Fatigue, Fever, Chills, Malaise, Weakness, Poor appetite, Diaphoresis, Night sweats - Eyes Eyes: denies: Pain, Blurred vision, Spots in vision, Field loss, Vision loss, Dipolpia - Ears, Nose & Throat Ears, Nose & Throat: denies: Ear pain, Hearing aids, Tinnitus, Vertigo, Nasal discharge, Nosebleeds, Sore throat, Mouth lesions, Bleeding gums - Cardiovascular Cariovascular: denies: Irregular heart rate, Palpitations, Chest pain, Edema, Lightheadedness, Syncope, Exertional dyspnea - Respiratory Respiratory: denies: Cough, Sputum production, Wheezing, Snoring, Hemoptysis, Orthopnea, SOB at rest, SOB with exertion - Gastrointestinal Gastrointestinal: reports: Abdominal pain. denies: Abdominal distention, Co nstipation, Diarrhea, Change in bowel habits, Rectal bleeding, Black stools, Bloody stools, Nausea, Vomiting, Celso blood emesis, Coffee grounds emesis - Genitourinary Genitourinary: denies: Dysuria, Frequency, Urgency, Hematuria, Incontinence, Flank pain - Musculoskeletal Musculoskeletal: denies: Muscle pain, Back pain, Muscle aches, Stiffness, Limited range of motion, Muscle weakness, Joint pain - Integumentary Integumentary: denies: Rash, Pruritis, Lesions, Dryness, Lumps, Acne - Neurological Neurological: denies: General weakness, Focal weakness, Headache, Dizziness, Numbness, Memory problems, Pre-existing deficit, Abnormal gait, Seizures, Incoordination, Slurred speech - Psychiatric Psychiatric: denies: Depression, Anxiety, Suicidal, Delusions, Hallucinations, Homicidal - Endocrine Endocrine: denies: Polyuria, Polydypsia, Polyphagia - Hematologic/Lymphatic Hematologic/Lymphatic: denies: Anemia, Bruising, Petechiae, Blood clots, Lymphadenopathy, Bleeding tendencies Exam - Vital Signs Vital Signs: Vital Signs x48h Temp Pulse Resp BP Pulse Ox 01/27/20 15:50 36.7 C 60 16 116/88 H 100 01/27/20 13:40 72 16 148/86 H 99 01/27/20 13:36 36.5 C 67 14 160/90 H 99 - Physical Exam General Appearance: positive: No acute distress, Alert. negative: Lethargic Eyes Bilateral: positive: Normal inspection, PERRL, No lid inflammation ENT: positive: ENT inspection nml, No signs of dehydration. negative: Purulent nasal drainage Neck: positive: Nml inspection, Thyroid nml, No JVD, Trachea midline. negative: Thyromegaly, Stiff neck, Tracheal deviation Respiratory: positive: Chest non-tender, No respiratory distress, Breath sounds nml. negative: Wheezes Cardiovascular: positive: Regular rate & rhythm, No murmur, No gallop. n egative: Irregularly irregular, Tachycardia, Bradycardia, JVD present, Systolic murmur, Diastolic murmur Peripheral Pulses: positive: 2+ Abdomen: positive: No organomegaly, Nml bowel sounds, No distention. negative: Tenderness, Guarding, Rebound Back: positive: Nml inspection. negative: CVA tenderness (R), CVA tenderness (L) Skin: positive: Color nml, No rash, Warm, Dry. negative: Cyanosis, Diaphoresis, Pallor Extremities: positive: Non-tender, Full ROM, Nml appearance. negative: Calf tenderness, Adria's sign/cords Neurologic/Psychiatric: positive: Oriented x3, Motor nml, Sensation nml. negative: Weakness, Sensory loss, Facial droop, Slurred/abnml speech, Depressed mood/affect Sepsis Event Note (H) - Evaluation Current Stage of Sepsis: Ruled out Conclusion/Plan - Problem List (1) Diverticulitis Conclusion/Plan: CAT scan of the abdomen reveal patient has acute diverticulitis, recurrent at this similar location as before.Patient failed outpatient treatment, patient already started antibiotics Zosyn in the ER, surgeon was called by the ER, continue with antibiotics, continue pain control, study with clear liquid diet advanced as patient tolerated, intravenous IV fluids Qualifiers: Diverticulitis site: large intestine Diverticulitis bleeding: without bleeding Diverticulitis complication: with abscess Qualified Code(s): K57.20 - Diverticulitis of large intestine with perforation and abscess without bleeding (2) Abdominal pain Conclusion/Plan: Patient report left low abdomen pain is likely secondary to the patient's acute diverticulitis, continue pain control, started with clear liquid diet today (3) Hypokalemia Conclusion/Plan: Patient has a potassium 3.3 today, replacement of the potassium, lab monitor - Lab Results Fish Bones: 01/27/20 14:08 01/27/20 14:08 Core Measures - Anticipated LOS I expect patient to be DC'd or transferred within 96 hours.: Yes - DVT/VTE - Prophylaxis VTE/DVT Device ordered at admit?: Yes VTE/DVT Prophylaxis med ordered at admit?: Yes
[2020-01-27] MEDS ORDERED: POTASSIUM CHLORIDE 20 MEQ TABLET PO ONE (16:55)
[2020-01-27] MEDS ORDERED: SODIUM CHLORIDE 0.9% 1,000 ML IV SCH (17:00)
--- NOTE | 2020-01-27 17:40 | PHARMACY PROGRESS NOTE ---
- Best Possible Medication History Admit Date and Time: 01/27/20 1611 Processed by: Pharmacy Medication History completed: Yes Secondary Source(s): Physician records, Pharmacy records, Insurance records As the person ultimately responsible for medication therapy, providers are able to order a medication from an existing home medication list in [facility] via the "Reconcile Routine" prior to Confirmation of that medication by network support. Such practice is discouraged except when the physician, in their clinical judgment, deems that a medical need exists for a medication without regard to previous use.
[2020-01-27] MEDS: SODIUM CHLORIDE FLUSH 0.9% 10 ML SYRINGE IVP SCH (17:52)
[2020-01-27] MEDS: PIPERACILLIN/TAZOBACTAM 3.375 GM in SODIUM CHLORIDE 0.9% MINIBAG 100 ML IV SCH (18:09)
--- NOTE | 2020-01-27 18:14 | CONSULTATION NOTE ---
Chief Complaint - Chief Complaint Chief Complaint: left lower quadrant abdominal pain. worse last few days History of Present Illness - Admitted From Admitted From:: ED - History Obtained From Records Reviewed: yes History obtained from: patient Exam Limitations: none - History of Present Illness HPI Comment/Other: He of recurring diverticulitis last several years. Well documented by CT. She is having another bout of diverticulitis which is not responding to oral antibiotics. 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 Agree. 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 Lives with her significant other and her children. Denies any smoking, alcohol abuse. She does drink occasionally. - Substance History Use: Uses substance without health or social issues: Alcohol (2 glasses of wine per day), Cannabis (1-2 times per week) - POLST Patient has POLST: No POLST Status: Full Code Meds/Allgy - Home Medications Home Medications: Ambulatory Orders Medication Instructions Recorded Confirmed Melatonin 6 mg PO QPM PRN 09/07/19 01/27/20 Multivitamin [Theragran] 1 each PO DAILY 09/07/19 01/27/20 Promethazine [Phenergan] 25 mg PO Q6H PRN 01/27/20 01/27/20 SUMAtriptan succinate [Sumatriptan 100 mg PO Q2H PRN MDD 200 mg 01/27/20 01/27/20 Succinate] diazePAM [Diazepam] 5 mg PO DAILY PRN 01/27/20 01/27/20 - Allergies Allergies/Adverse Reactions: Allergies Allergy/AdvReac Type Severity Reaction Status Date / Time amoxicillin [Amoxicillin] AdvReac Unknown Rash Verified 01/27/20 13:36 Penicillins AdvReac Unknown Rash Verified 01/27/20 13:36 Review of Systems - Other Findings Other Findings: 10 pt ros as above and below otherwise unremarkable Exam - Vital Signs Vital Signs: Vital Signs x48h Temp Pulse Pulse Resp BP BP Pulse Ox 01/27/20 17:29 36.9 C 50 L 99 H 132/81 H 18 L 01/27/20 15:50 36.7 C 60 16 116/88 H 100 01/27/20 13:40 72 16 148/86 H 99 01/27/20 13:36 36.5 C 67 14 160/90 H 99 - Physical Exam General Appearance: positive: No acute distress, Alert Eyes Bilateral: positive: Normal inspection, PERRL, EOMI Neck: positive: No JVD Respiratory: positive: No respiratory distress Abdomen: positive: No distention, Tenderness (left lower quarant) Conclusion and Plan - Lab Results Laboratory Results 01/27/20 14:08: PT 12.7 H, INR 1.1 01/27/20 14:08: Sodium 135, Potassium 3.3 L, Chloride 100 L, Carbon Dioxide 23, Anion Gap 12.0, BUN 10, Creatinine 0.7, Estimated GFR (MDRD) 89, Glucose 112 H, Calcium 9.5, Total Bilirubin 1.0, AST 24, ALT 19, Alkaline Phosphatase 79, Total Protein 8.4 H, Albumin 4.1, Globulin 4.3 H, Albumin/Globulin Ratio 1.0, Lipase 26 01/27/20 14:08: WBC 10.1, RBC 4.29, Hgb 14.9, Hct 43.0, MCV 100.2 H, MCH 34.7 H, MCHC 34.7, RDW 12.3, Plt Count 286, MPV 8.8, Neut # (Auto) 7.3 H, Lymph # (Auto) 1.9, [place] # (Auto) 0.5, Eos # (Auto) 0.2, Baso # (Auto) 0.1, Absolute Nucleated RBC 0.00, Nucleated RBC % 0.0 01/27/20 13:55: Urine Color DARK YELLOW, Urine Clarity SL. CLOUDY, Urine pH 5.5, Ur Specific [place] >=1.030 H, Urine Protein TRACE, Urine Glucose (UA) NEGATIVE, Urine Ketones >=80 H, Urine Occult Blood TRACE-INTA, Urine Nitrite NEGATIVE, Urine Bilirubin NEGATIVE, Urine Urobilinogen 1 (NORMAL), Ur Leukocyte Esterase NEGATIVE, Urine RBC 0-5, Urine WBC 4-5, Ur Squamous Epith Cells MANY Squamous H, Urine Bacteria Moderate H, Ur Microscopic Review INDICATED, Urine Culture Comments NOT INDICATED - Diagnostic Imaging Results Diagnostic Imaging Results: positive: Read independently, Other (no abscess, free fluid or air. proximal sigmoid inflammation) - Diagnosis Diagnosis: recurring diverticulitis without abscess or perforation - Plan Plan: medical management. possible gentle bowel prep in a couple days follow by surgery this hospitalization vs home when improved and more elective surgery in a week or two. This is discussed with her. will follow
[2020-01-27] MEDS: oxyCODONE 5 MG TABLET PO PRN (18:18)
[2020-01-27] MEDS: ONDANSETRON 4 MG/2 ML VIAL IVP PRN (20:14)
[2020-01-27] MEDS: SODIUM CHLORIDE FLUSH 0.9% 10 ML SYRINGE IVP PRN (20:15)
--- NOTE | 2020-01-27 21:03 | Ultrasound Report ---
Reason: right renal cyst upto 1.5cm ? Procedure Date: 01/27/2020 Accession Number: [id number] / [id number] Procedure: US - Retroperitoneal Limited CPT Code: Final Report FULL RESULT: PROCEDURE: Retroperitoneal Limited INDICATIONS: right renal cyst upto 1.5cm ? TECHNIQUE: Real-time scanning was performed of the retroperitoneal organs, with image documentation. COMPARISON: CT abdomen and pelvis with contrast dated 01/27/2020 which raise the question of a complex right middle pole renal cyst. Targeted ultrasound focusing on this lesion is requested. FINDINGS: Focused sonographic imaging was performed on the right kidney only, to evaluate a cystic structure in the middle pole. This is a simple cyst measuring 1.8 x 1.3 x 1.9 cm with a single septation. There is no vascularity to the lesion. IMPRESSION: 1. Lesion seen on CT corresponds to a benign simple cyst of the middle pole of the right kidney. No further workup is required. Reviewed by: Hero Gregory MD on 01/27/2020 9:01 PM PDT Approved by: Hero Gregory MD on 01/27/2020 9:01 PM PDT Station ID: [id number]
[2020-01-27] MEDS: ZOLPIDEM 5 MG TABLET PO PRN (23:02)
[2020-01-28] MEDS: SODIUM CHLORIDE FLUSH 0.9% 10 ML SYRINGE IVP SCH ×4 (01:26→17:22)
[2020-01-28] MEDS: PIPERACILLIN/TAZOBACTAM 3.375 GM in SODIUM CHLORIDE 0.9% MINIBAG 100 ML IV SCH ×3 (01:46→17:56)
[2020-01-28] MEDS: oxyCODONE 5 MG TABLET PO PRN (01:54)
[2020-01-28] MEDS: ONDANSETRON 4 MG/2 ML VIAL IVP PRN ×4 (01:54→22:43)
[2020-01-28] MEDS ORDERED: SODIUM CHLORIDE 0.9% 500 ML ONE (04:05)
[2020-01-28 05:12] LABS: BASOPHILS % (AUTO) 0.5 %; EOSINOPHILS # (AUTO) 0.2 10^3/uL (0.0-0.7); EOSINOPHILS % (AUTO) 3.1 %; HGB - HEMOGLOBIN 12.6 g/dL (12.0-16.0); LYMPHOCYTES # (AUTO) 1.9 10^3/uL (1.5-3.5); LYMPHOCYTES % (AUTO) 23.9 %; MEAN CORPUSCULAR HGB CONC 34.1 g/dL (32.0-36.0); MEAN CORPUSCULAR VOLUME 102.8 fL (81.0-99.0); MONOCYTES # (AUTO) 0.5 10^3/uL (0.0-1.0); MONOCYTES % (AUTO) 6.7 %; NEUTROPHILS # (AUTO) 5.1 10^3/uL (1.5-6.6); NEUTROPHILS % (AUTO) 65.4 %; PLT - PLATELET COUNT 248 10^3/uL (130-450); RED CELL DISTRIBUTION WIDTH 12.5 % (12.0-15.0); WHITE BLOOD COUNT 7.7 x10^3/uL (4.8-10.8)
[2020-01-28 05:21] LABS: CALCIUM 8.2 mg/dL (8.5-10.3); CREATININE 0.6 mg/dL (0.4-1.0); MAGNESIUM 1.9 mg/dL (1.7-2.8)
[2020-01-28] MEDS: PANTOPRAZOLE 40 MG TABLET PO SCH (06:07)
[2020-01-28] MEDS: MORPHINE 2 MG/ML CARPUJECT IVP PRN ×4 (08:02→22:43)
[2020-01-28] MEDS: ENOXAPARIN 40 MG/0.4 ML SYRINGE SUBQ SCH (08:02)
--- NOTE | 2020-01-28 09:48 | PROVIDER PROGRESS NOTE ---
Assessment/Plan - Problem List (1) Diverticulitis Qualifiers: Diverticulitis site: large intestine Diverticulitis bleeding: without bleeding Diverticulitis complication: with abscess Qualified Code(s): K57.20 - Diverticulitis of large intestine with perforation and abscess without bleeding Assessment/Plan: 6/ pt report her abdominal pain is slight better than yesterday, but she still has nausea and difficult to eat. per surgeon's note, recommend pt is for medical management, not surgery, in hospital at this time. surgeon might discuss with pt for possible surgery option after pt d/c in one or two weeks. continue antibiotics, pain control AT scan of the abdomen reveal patient has acute diverticulitis, recurrent at this similar location as before.Patient failed outpatient treatment, patient already started antibiotics Zosyn in the ER, surgeon was called by the ER, continue with antibiotics, continue pain control, study with clear liquid diet advanced as patient tolerated, intravenous IV fluids (2) Abdominal pain Conclusion/Plan: 01/28 improved. continue pain control and antibiotics Patient report left low abdomen pain is likely secondary to the patient's acute diverticulitis, continue pain control, started with clear liquid diet today (3) Hypokalemia Conclusion/Plan: 01/28 resolved. Patient has a potassium 3.3 today, replacement of the potassium, lab monitor - Current Meds Current Meds: Current Medications Generic Name Dose Route Start Last Admin Trade Name Freq PRN Reason Stop Dose Admin Enoxaparin Sodium 40 mg 01/28/20 09:00 01/28/20 08:02 Lovenox SUBQ 40 mg DAILY DESI Administration Piperacillin Sod/Tazobactam 100 mls @ 25 mls/hr 01/27/20 18:00 01/28/20 06:06 Sod 3.375 gm/ Sodium Chloride IV Infused Q8H DESI Infusion Morphine Sulfate 2 mg 01/27/20 16:11 01/28/20 08:02 Morphine (Carpuject) IVP 2 mg Q2HR PRN Administration Pain 8 to 10 Ondansetron HCl 4 mg 01/27/20 16:11 01/28/20 08:02 Zofran Inj IVP 4 mg Q6HR PRN Administration Nausea / Vomiting Oxycodone HCl 5 mg 01/27/20 16:11 01/28/20 01:54 Roxicodone PO 5 mg Q4HR PRN Administration Pain 5 to 7 Pantoprazole Sodium 40 mg 01/28/20 07:00 01/28/20 06:07 Protonix PO 40 mg QDAC DESI Administration Sodium Chloride 10 ml 01/27/20 16:11 01/27/20 20:15 Normal Saline Flush 0.9% IVP 10 ml PRN PRN Administration NEEDED PER PROVIDER ORDERS Sodium Chloride 10 ml 01/27/20 17:00 01/28/20 08:03 Normal Saline Flush 0.9% IVP 30 ml 0100,0900,1700 DESI Administration Zolpidem Tartrate 5 mg 01/27/20 16:11 01/27/20 23:02 Ambien PO 5 mg QPM PRN Administration Insomnia - Lab Result Fish Bone Diagrams: 01/28/20 04:25 01/28/20 04:25 - Additional Planning My Orders: My Active Orders 01/27/20 16:11 Activity Orders [RC] Q2HR IO [RC] IOSHIFT Initiate Bowel Care Protocol [RC] .protocol Initiate Flu Vaccine Screening [RC] ONCE Initiate Line Care Protocol [RC] QSHIFT Initiate Personal Care Protoco [RC] .protocol Initiate Pneumonia Vaccine Scr [RC] ONCE Oxygen Therapy [RC] Routine Vital Signs [RC] 0800,1600,0000 Acetaminophen [Tylenol] 650 mg PO Q4HR PRN Morphine Inj (Carpuject) [Morphine (Carpuject)] 2 mg IVP Q2HR PRN Ondansetron Inj [Zofran Inj] 4 mg IVP Q6HR PRN Sodium Chloride Flush 0.9% [Normal Saline Flush 0.9%] 10 ml IVP PRN PRN Zolpidem [Ambien] 5 mg PO QPM PRN oxyCODONE [Roxicodone] 5 mg PO Q4HR PRN Code Status [OTHERS] Routine Condition of Patient [OTHERS] Routine DVT Prophylaxis [OTHERS] Routine 01/27/20 16:13 IV Insert [RC] .ONCE SCDs [RC] QSHIFT 01/27/20 17:00 Sodium Chloride Flush 0.9% [Normal Saline Flush 0.9%] 10 ml IVP 0100,0900,1700 01/27/20 18:00 Piperacillin/Tazobactam [Zosyn] 3.375 gm Sodium Chloride 0.9% Minibag [Normal Saline 0.9% Minibag] 100 ml IV Q8H 01/27/20 Dinner Clear Liquid Diet [DIET] 01/28/20 07:00 Pantoprazole [Protonix] 40 mg PO QDAC 01/28/20 09:00 Enoxaparin [Lovenox] 40 mg SUBQ DAILY 01/28/20 09:30 Saccharomyces Boulardii [Florastor] 250 mg PO BIDWM 01/29/20 05:00 BMP - BASIC METABOLIC PANEL [CHEM] DAILYLAB CBC - COMP BLD CT W/AUTO DIFF [HEME] DAILYLAB 01/30/20 05:00 BMP - BASIC METABOLIC PANEL [CHEM] DAILYLAB CBC - COMP BLD CT W/AUTO DIFF [HEME] DAILYLAB 01/31/20 05:00 BMP - BASIC METABOLIC PANEL [CHEM] DAILYLAB CBC - COMP BLD CT W/AUTO DIFF [HEME] DAILYLAB Subjective - Subjective Patient Reports: Feeling Better Objective Vital Signs: Vital Signs - 24 hr 01/27/20 01/27/20 01/27/20 13:36 13:40 15:50 Temperature 36.5 C 36.7 C Heart Rate 67 72 60 Heart Rate [ Monitoring electrodes] Respiratory 14 16 16 Rate Blood Pressure 160/90 H 148/86 H 116/88 H Blood Pressure [Left Brachial artery] Blood Pressure [Right Brachial artery] O2 Saturation 99 99 100 01/27/20 01/28/20 01/28/20 17:29 00:00 07:58 Temperature 36.9 C 36.9 C 37.1 C Heart Rate Heart Rate [ 50 L 69 61 Monitoring electrodes] Respiratory 99 H 96 H 16 Rate Blood Pressure Blood Pressure 111/73 [Left Brachial artery] Blood Pressure 132/81 H 106/65 [Right Brachial artery] O2 Saturation 18 L 12 L 97 Oxygen O2 Source Room air I&O (Last 24 Hrs): Intake and Output Totals x24h 01/26/20 01/27/20 01/28/20 23:59 23:59 23:59 Intake Total 1300 1100 Output Total 500 650 Balance 800 450 General: Alert, Oriented x3, No acute distress HEENT: Atraumatic Neck: Supple Lymphatic: no adenopathy Neuro: Alert, Non Focal, Oriented Times 3 Cardiovascular: Regular rate, Normal S1, Normal S2 Respiratory: Chest non-tender, No respiratory distress, Breath sounds nml Abdomen: Normal bowel sounds, Soft, No tenderness Extremities: Normal pulses - Results Results: Laboratory Results WBC 7.7 x10^3/uL (4.8-10.8) 01/28/20 04:25 RBC 3.60 10^6/uL (4.20-5.40) L 01/28/20 04:25 Hgb 12.6 g/dL (12.0-16.0) 01/28/20 04:25 Hct 37.0 % (37.0-47.0) 01/28/20 04:25 MCV 102.8 fL (81.0-99.0) H 01/28/20 04:25 MCH 35.0 pg (27.0-31.0) H 01/28/20 04:25 MCHC 34.1 g/dL (32.0-36.0) 01/28/20 04:25 RDW 12.5 % (12.0-15.0) 01/28/20 04:25 Plt Count 248 10^3/uL (130-450) 01/28/20 04:25 MPV 9.0 fL (7.9-10.8) 01/28/20 04:25 Neut # (Auto) 5.1 10^3/uL (1.5-6.6) 01/28/20 04:25 Lymph # (Auto) 1.9 10^3/uL (1.5-3.5) 01/28/20 04:25 [place] # (Auto) 0.5 10^3/uL (0.0-1.0) 01/28/20 04:25 Eos # (Auto) 0.2 10^3/uL (0.0-0.7) 01/28/20 04:25 Baso # (Auto) 0.0 10^3/uL (0.0-0.1) 01/28/20 04:25 Absolute Nucleated RBC 0.00 x10^3/uL 01/28/20 04:25 Nucleated RBC % 0.0 /100WBC 01/28/20 04:25 PT 12.7 secs (9.9-12.6) H 01/27/20 14:08 INR 1.1 (0.8-1.2) 01/27/20 14:08 Sodium 136 mmol/L (135-145) 01/28/20 04:25 Potassium 3.6 mmol/L (3.5-5.0) 01/28/20 04:25 Chloride 106 mmol/L (101-111) 01/28/20 04:25 Carbon Dioxide 20 mmol/L (21-32) L 01/28/20 04:25 Anion Gap 10.0 (6-13) 01/28/20 04:25 BUN 6 mg/dL (6-20) 01/28/20 04:25 Creatinine 0.6 mg/dL (0.4-1.0) 01/28/20 04:25 Estimated GFR (MDRD) 106 (>89) 01/28/20 04:25 Glucose 106 mg/dL (70-100) H 01/28/20 04:25 Calcium 8.2 mg/dL (8.5-10.3) L 01/28/20 04:25 Magnesium 1.9 mg/dL (1.7-2.8) 01/28/20 04:25 Total Bilirubin 1.0 mg/dL (0.2-1.0) 01/27/20 14:08 AST 24 IU/L (10-42) 01/27/20 14:08 ALT 19 IU/L (10-60) 01/27/20 14:08 Alkaline Phosphatase 79 IU/L (42-121) 01/27/20 14:08 Total Protein 8.4 g/dL (6.7-8.2) H 01/27/20 14:08 Albumin 4.1 g/dL (3.2-5.5) 01/27/20 14:08 Globulin 4.3 g/dL (2.1-4.2) H 01/27/20 14:08 Albumin/Globulin Ratio 1.0 (1.0-2.2) 01/27/20 14:08 Lipase 26 U/L (22-51) 01/27/20 14:08 Urine Color DARK YELLOW 01/27/20 13:55 Urine Clarity SL. CLOUDY (CLEAR) 01/27/20 13:55 Urine pH 5.5 PH (5.0-7.5) 01/27/20 13:55 Ur Specific [place] >=1.030 (1.002-1.030) H 01/27/20 13:55 Urine Protein TRACE mg/dL (NEGATIVE) 01/27/20 13:55 Urine Glucose (UA) NEGATIVE mg/dL (NEGATIVE) 01/27/20 13:55 Urine Ketones >=80 mg/dL (NEGATIVE) H 01/27/20 13:55 Urine Occult Blood TRACE-INTA (NEGATIVE) 01/27/20 13:55 Urine Nitrite NEGATIVE (NEGATIVE) 01/27/20 13:55 Urine Bilirubin NEGATIVE (NEGATIVE) 01/27/20 13:55 Urine Urobilinogen 1 (NORMAL) E.U./dL (NORMAL) 01/27/20 13:55 Ur Leukocyte Esterase NEGATIVE (NEGATIVE) 01/27/20 13:55 Urine RBC 0-5 /HPF (0-5) 01/27/20 13:55 Urine WBC 4-5 /HPF (0-5) 01/27/20 13:55 Ur Squamous Epith Cells MANY Squamous (<= Few) H 01/27/20 13:55 Urine Bacteria Moderate /HPF (None Seen) H 01/27/20 13:55 Ur Microscopic Review INDICATED 01/27/20 13:55 Urine Culture Comments NOT INDICATED 01/27/20 13:55 Sepsis Event Note (H) - Evaluation Current Stage of Sepsis: Ruled out ABX Reporting Has patient been on IV antibiotics over the past 48 hours?: No Current Medications - Current Medications Current Medications: Active Medications Acetaminophen (Tylenol) 650 mg PO Q4HR PRN PRN Reason: Pain 1 to 4 Enoxaparin Sodium (Lovenox) 40 mg SUBQ DAILY [facility] Last Admin: 01/28/20 08:02 Dose: 40 mg Piperacillin Sod/Tazobactam (Sod 3.375 gm/ Sodium Chloride) 100 mls @ 25 mls/hr IV Q8H [facility] Last Infusion: 01/28/20 06:06 Dose: Infused Morphine Sulfate (Morphine (Carpuject)) 2 mg IVP Q2HR PRN PRN Reason: Pain 8 to 10 Last Admin: 01/28/20 08:02 Dose: 2 mg Ondansetron HCl (Zofran Inj) 4 mg IVP Q6HR PRN PRN Reason: Nausea / Vomiting Last Admin: 01/28/20 08:02 Dose: 4 mg Oxycodone HCl (Roxicodone) 5 mg PO Q4HR PRN PRN Reason: Pain 5 to 7 Last Admin: 01/28/20 01:54 Dose: 5 mg Pantoprazole Sodium (Protonix) 40 mg PO QDAC [facility] Last Admin: 01/28/20 06:07 Dose: 40 mg Saccharomyces Boulardii (Florastor) 250 mg PO BIDWM [facility] Sodium Chloride (Normal Saline Flush 0.9%) 10 ml IVP PRN PRN PRN Reason: NEEDED PER PROVIDER ORDERS Last Admin: 01/27/20 20:15 Dose: 10 ml Sodium Chloride (Normal Saline Flush 0.9%) 10 ml IVP 0100,0900,1700 [facility] Last Admin: 01/28/20 08:03 Dose: 30 ml Zolpidem Tartrate (Ambien) 5 mg PO QPM PRN PRN Reason: Insomnia Last Admin: 01/27/20 23:02 Dose: 5 mg Melatonin 6 mg PO QPM PRN 09/07/19 Multivitamin [Theragran] 1 each PO DAILY 09/07/19 Promethazine [Phenergan] 25 mg PO Q6H PRN 01/27/20 SUMAtriptan succinate [Sumatriptan Succinate] 100 mg PO Q2H PRN MDD 200 mg 01/27/20 diazePAM [Diazepam] 5 mg PO DAILY PRN 01/27/20
[2020-01-28] MEDS: SACCHAROMYCES BOULARDII 250 MG CAPSULE PO SCH ×2 (10:37→16:41)
[2020-01-28] MEDS ORDERED: PROCHLORPERAZINE 10 MG/2 ML VIAL IVP PRN (17:32)
[2020-01-28] MEDS ORDERED: MELATONIN 6 MG PO PRN (18:13)
[2020-01-28] MEDS ORDERED: SUMAtriptan 25 MG TABLET PO PRN (18:27)
--- NOTE | 2020-01-28 18:56 | PROVIDER PROGRESS NOTE ---
Subjective - Prog Note Date Prog Note Date: 01/28/20 Prog Note Time: 18:00 Objective - Vital Signs/Intake & Output Vital Signs: Vital Signs x48h Temp Pulse Pulse Resp BP BP Pulse Ox 01/28/20 16:47 37.2 C 64 18 138/73 H 99 01/28/20 11:48 37.1 C 89 16 111/65 98 01/28/20 11:01 37.1 C 61 16 95 Intake & Output: Intake & Output 01/25/20 01/26/20 01/27/20 01/28/20 23:59 23:59 23:59 23:59 Intake Total 1300 1440 Output Total 500 700 Balance 800 740 - Objective General Appearance: positive: Mild distress Eyes Bilateral: positive: PERRL, EOMI Respiratory: positive: Chest non-tender Cardiovascular: positive: Regular rate & rhythm Abdomen: positive: Tenderness - Lab Results Fish Bones: 01/28/20 04:25 01/28/20 04:25 Other Labs: Lab Results x24hrs 01/28/20 01/28/20 Range/Units 04:25 04:25 WBC 7.7 (4.8-10.8) x10^3/uL RBC 3.60 L (4.20-5.40) 10^6/uL Hgb 12.6 (12.0-16.0) g/dL Hct 37.0 (37.0-47.0) % MCV 102.8 H (81.0-99.0) fL MCH 35.0 H (27.0-31.0) pg MCHC 34.1 (32.0-36.0) g/dL RDW 12.5 (12.0-15.0) % Plt Count 248 (130-450) 10^3/uL MPV 9.0 (7.9-10.8) fL Neut # (Auto) 5.1 (1.5-6.6) 10^3/uL Lymph # (Auto) 1.9 (1.5-3.5) 10^3/uL [place] # (Auto) 0.5 (0.0-1.0) 10^3/uL Eos # (Auto) 0.2 (0.0-0.7) 10^3/uL Baso # (Auto) 0.0 (0.0-0.1) 10^3/uL Absolute Nucleated RBC 0.00 x10^3/uL Nucleated RBC % 0.0 /100WBC Sodium 136 (135-145) mmol/L Potassium 3.6 (3.5-5.0) mmol/L Chloride 106 (101-111) mmol/L Carbon Dioxide 20 L (21-32) mmol/L Anion Gap 10.0 (6-13) BUN 6 (6-20) mg/dL Creatinine 0.6 (0.4-1.0) mg/dL Estimated GFR (MDRD) 106 (>89) Glucose 106 H (70-100) mg/dL Calcium 8.2 L (8.5-10.3) mg/dL Magnesium 1.9 (1.7-2.8) mg/dL Sepsis Event Note (H) - Evaluation Current Stage of Sepsis: Ruled out Assessment/Plan - Problem List (2) Diverticulitis of gastrointestinal tract Impression: Refractory diverticulitis, multiple episodes, no abscess. Plan colonoscopy tomorrow, likely surgery Sunday. Please see dictated note. (3) Abdominal pain Qualifiers: Abdominal location: left lower quadrant Qualified Code(s): R10.32 - Left lower quadrant pain
[2020-01-28] MEDS ORDERED: PEG 3350/NA SULF,BICARB,CL/KCL 4,000 ML BOTTLE PO ONE (20:00)
[2020-01-28] MEDS: diazePAM 5 MG TABLET PO PRN (20:23)
[2020-01-28] MEDS: SODIUM CHLORIDE FLUSH 0.9% 10 ML SYRINGE IVP PRN (22:43)
[2020-01-28] MEDS: ZOLPIDEM 5 MG TABLET PO PRN (22:43)
[2020-01-29] MEDS: PIPERACILLIN/TAZOBACTAM 3.375 GM in SODIUM CHLORIDE 0.9% MINIBAG 100 ML IV SCH ×3 (00:59→18:08)
[2020-01-29] MEDS ORDERED: SODIUM CHLORIDE 0.9% 1,000 ML IV SCH (01:00)
[2020-01-29 05:08] LABS: BASOPHILS % (AUTO) 0.6 %; EOSINOPHILS # (AUTO) 0.3 10^3/uL (0.0-0.7); EOSINOPHILS % (AUTO) 4.2 %; LYMPHOCYTES # (AUTO) 1.9 10^3/uL (1.5-3.5); LYMPHOCYTES % (AUTO) 28.9 %; MEAN CORPUSCULAR HEMOGLOBIN 34.1 pg (27.0-31.0); MEAN CORPUSCULAR HGB CONC 33.8 g/dL (32.0-36.0); MONOCYTES # (AUTO) 0.5 10^3/uL (0.0-1.0); MONOCYTES % (AUTO) 7.1 %; NEUTROPHILS # (AUTO) 3.9 10^3/uL (1.5-6.6); NEUTROPHILS % (AUTO) 58.9 %; PLT - PLATELET COUNT 243 10^3/uL (130-450); RED BLOOD COUNT 3.81 10^6/uL (4.20-5.40); RED CELL DISTRIBUTION WIDTH 12.3 % (12.0-15.0); WHITE BLOOD COUNT 6.7 x10^3/uL (4.8-10.8)
[2020-01-29 05:21] LABS: BUN - BLOOD UREA NITROGEN < 5 mg/dL (6-20); CALCIUM 8.4 mg/dL (8.5-10.3); CARBON DIOXIDE - CO2 23 mmol/L (21-32); CHLORIDE 105 mmol/L (101-111); CREATININE 0.6 mg/dL (0.4-1.0); GLUCOSE 96 mg/dL (70-100); SODIUM 138 mmol/L (135-145)
[2020-01-29] MEDS: PANTOPRAZOLE 40 MG TABLET PO SCH (07:02)
[2020-01-29] MEDS ORDERED: POTASSIUM CHLORIDE 20 MEQ TABLET PO ONE (08:00)
--- NOTE | 2020-01-29 08:35 | ANESTHESIA ---
Pre-Anesthesia VS, & Labs - Diagnosis Diagnosis recurring diverticulitis without abscess or perforation - Procedure colonoscopy Vital Signs: Temp Pulse Resp BP Pulse Ox 37.4 C 83 16 133/81 H 97 01/29/20 05:00 01/29/20 05:00 01/29/20 05:00 01/29/20 05:00 01/29/20 05:00 Height 5 ft 10 in Weight (kg) 75 kg Body Mass Index 23.7 - NPO >8 hours - Is Patient ?: No - Lab Results Current Lab Results: Laboratory Tests 01/29/20 04:35: Sodium 138, Potassium 3.4 L, Chloride 105, Carbon Dioxide 23, Anion Gap 10.0, BUN < 5 L, Creatinine 0.6, Estimated GFR (MDRD) 106, Glucose 96, Calcium 8.4 L 01/29/20 04:35: WBC 6.7, RBC 3.81 L, Hgb 13.0, Hct 38.5, MCV 101.0 H, MCH 34.1 H , MCHC 33.8, RDW 12.3, Plt Count 243, MPV 9.0, Neut # (Auto) 3.9, Lymph # (Auto) 1.9, [place] # (Auto) 0.5, Eos # (Auto) 0.3, Baso # (Auto) 0.0, Absolute Nucleated RBC 0.00, Nucleated RBC % 0.0 01/28/20 04:25: Sodium 136, Potassium 3.6, Chloride 106, Carbon Dioxide 20 L, Anion Gap 10.0, BUN 6, Creatinine 0.6, Estimated GFR (MDRD) 106, Glucose 106 H, Calcium 8.2 L, Magnesium 1.9 01/28/20 04:25: WBC 7.7, RBC 3.60 L, Hgb 12.6, Hct 37.0, MCV 102.8 H, MCH 35.0 H , MCHC 34.1, RDW 12.5, Plt Count 248, MPV 9.0, Neut # (Auto) 5.1, Lymph # (Auto) 1.9, [place] # (Auto) 0.5, Eos # (Auto) 0.2, Baso # (Auto) 0.0, Absolute Nucleated RBC 0.00, Nucleated RBC % 0.0 01/27/20 14:08: PT 12.7 H, INR 1.1 01/27/20 14:08: Sodium 135, Potassium 3.3 L, Chloride 100 L, Carbon Dioxide 23, Anion Gap 12.0, BUN 10, Creatinine 0.7, Estimated GFR (MDRD) 89, Glucose 112 H, Calcium 9.5, Total Bilirubin 1.0, AST 24, ALT 19, Alkaline Phosphatase 79, Total Protein 8.4 H, Albumin 4.1, Globulin 4.3 H, Albumin/Globulin Ratio 1.0, Lipase 26 01/27/20 14:08: WBC 10.1, RBC 4.29, Hgb 14.9, Hct 43.0, MCV 100.2 H, MCH 34.7 H, MCHC 34.7, RDW 12.3, Plt Count 286, MPV 8.8, Neut # (Auto) 7.3 H, Lymph # (Auto) 1.9, [place] # (Auto) 0.5, Eos # (Auto) 0.2, Baso # (Auto) 0.1, Absolute Nucleated RBC 0.00, Nucleated RBC % 0.0 Fish Bones: 01/29/20 04:35 01/29/20 04:35 Home Medications and Allergies Home Medications: Ambulatory Orders Promethazine [Phenergan] 25 mg PO Q6H PRN 01/27/20 SUMAtriptan succinate [Sumatriptan Succinate] 100 mg PO Q2H PRN MDD 200 mg 01/27/20 diazePAM [Diazepam] 5 mg PO DAILY PRN 01/27/20 Active Medications Acetaminophen (Tylenol) 650 mg PO Q4HR PRN PRN Reason: Pain 1 to 4 Diazepam (Valium) 5 mg PO DAILY PRN PRN Reason: Anxiety Last Admin: 01/28/20 20:23 Dose: 5 mg Enoxaparin Sodium (Lovenox) 40 mg SUBQ DAILY DESI Last Admin: 01/28/20 08:02 Dose: 40 mg Piperacillin Sod/Tazobactam (Sod 3.375 gm/ Sodium Chloride) 100 mls @ 25 mls/hr IV Q8H [facility] Last Infusion: 01/29/20 06:13 Dose: Infused Sodium Chloride (Normal Saline 0.9%) 1,000 mls @ 100 mls/hr IV .Q10H DESI Last Admin: 01/29/20 00:59 Dose: 100 mls/hr Morphine Sulfate (Morphine (Carpuject)) 2 mg IVP Q2HR PRN PRN Reason: Pain 8 to 10 Last Admin: 01/28/20 22:43 Dose: 2 mg Multivitamins (Theragran) 1 tab PO DAILY [facility] Non-Formulary Medication (Melatonin [Melatonin]) 6 mg PO QPM PRN PRN Reason: Insomnia Ondansetron HCl (Zofran Inj) 4 mg IVP Q6HR PRN PRN Reason: Nausea / Vomiting Last Admin: 01/28/20 22:43 Dose: 4 mg Oxycodone HCl (Roxicodone) 5 mg PO Q4HR PRN PRN Reason: Pain 5 to 7 Last Admin: 01/28/20 01:54 Dose: 5 mg Pantoprazole Sodium (Protonix) 40 mg PO QDAC [facility] Last Admin: 01/29/20 07:02 Dose: 40 mg Promethazine HCl (Phenergan) 25 mg PO Q6H PRN PRN Reason: Nausea / Vomiting Saccharomyces Boulardii (Florastor) 250 mg PO BIDWM [facility] Last Admin: 01/28/20 16:41 Dose: 250 mg Sodium Chloride (Normal Saline Flush 0.9%) 10 ml IVP PRN PRN PRN Reason: NEEDED PER PROVIDER ORDERS Last Admin: 01/28/20 22:43 Dose: 10 ml Sodium Chloride (Normal Saline Flush 0.9%) 10 ml IVP 0100,0900,1700 [facility] Last Admin: 01/28/20 17:22 Dose: 10 ml Sumatriptan Succinate (Imitrex) 100 mg PO Q2H PRN PRN Reason: HEADACHE Last Admin: 01/29/20 07:01 Dose: 100 mg Zolpidem Tartrate (Ambien) 5 mg PO QPM PRN PRN Reason: Insomnia Last Admin: 01/28/20 22:43 Dose: 5 mg Melatonin 6 mg PO QPM PRN 09/07/19 Multivitamin [Theragran] 1 each PO DAILY 09/07/19 Promethazine [Phenergan] 25 mg PO Q6H PRN 01/27/20 SUMAtriptan succinate [Sumatriptan Succinate] 100 mg PO Q2H PRN MDD 200 mg 01/27/20 diazePAM [Diazepam] 5 mg PO DAILY PRN 01/27/20 [id number] Allergies/Adverse Reactions: Allergies Allergy/AdvReac Type Severity Reaction Status Date / Time amoxicillin [Amoxicillin] AdvReac Unknown Rash Verified 01/27/20 13:36 Penicillins AdvReac Unknown Rash Verified 01/27/20 13:36 Anes History & Medical History - Anesthetic History Anesthesia Complications: reports: No previous complications - Medical History Cardiovascular: reports: None Pulmonary: reports: None Gastrointestinal: reports: Diverticulitis Urinary: reports: Kidney stones Neuro: reports: Migraines Musculoskeletal: reports: None Endocrine/Autoimmune: reports: None Blood Disorders: reports: Anemia Skin: reports: Herpes zoster Smoking Status: Never smoker Psychosocial: reports: Alcohol (2 glasses of wine per day) - Surgical History Gynecologic: section, Tubal ligation Orthopedic: Arthroscopic surgery Dermatologic: Skin grafts Exam General: Alert, Oriented x3, Cooperative, No acute distress Dental: Other (broken left back bottom tooth) Mouth Openin Fingerbreadth Neck Mobility: Normal Mallampati classification: I Thyromental Distance: 4-6 cm Respiratory: Lungs clear, Normal breath sounds, No respiratory distress, No accessory muscle use Cardiovascular: Regular rate, Normal S1, Normal S2, No murmurs Mental/Cognitive Status: Alert/Oriented X3, Normal for patient Plan Anesthesia Type: MAC Consent for Procedure(s) Verified and Reviewed: Yes Code Status: Attempt Resuscitation ASA classification: 2-Mild systemic disease Is this case an emergency?: No
[2020-01-29] MEDS: MULTIVITAMIN TABLET PO SCH (08:46)
[2020-01-29] MEDS: ONDANSETRON 4 MG/2 ML VIAL IVP PRN (08:46)
[2020-01-29] MEDS: SACCHAROMYCES BOULARDII 250 MG CAPSULE PO SCH ×2 (08:46→16:34)
[2020-01-29] MEDS: ENOXAPARIN 40 MG/0.4 ML SYRINGE SUBQ SCH (08:47)
[2020-01-29] MEDS: SODIUM CHLORIDE FLUSH 0.9% 10 ML SYRINGE IVP SCH ×2 (09:01→16:34)
[2020-01-29] MEDS ORDERED: SODIUM CHLORIDE 0.9% 1,000 ML IV ONE (10:17)
[2020-01-29] MEDS ORDERED: LACTATED RINGERS 1,000 ML IV ONE (10:17)
--- NOTE | 2020-01-29 10:25 | HISTORY & PHYSICAL EXAMINATION ---
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: Other : positive: Kidney stones HEENT: positive: Other Psych: positive: None Musculoskeletal: positive: None Derm: positive: Herpes zoster MRSA Hx?: No - Past Surgical History Ortho: positive: Arthroscopic surgery /[place]AP[place] STITCHER: positive: section, Tubal ligation Derm: positive: Skin grafts Social & Family Hx - Social History Does the pt smoke?: No Smoking Status: Never smoker Does the pt drink ETOH?: Yes Does the pt have substance abuse?: No - POLST Patient has POLST: No POLST Status: Full Code Meds/Allgy - Home Medications Home Medications: Ambulatory Orders Medication Instructions Recorded Confirmed Melatonin 6 mg PO QPM PRN 09/07/19 01/27/20 Multivitamin [Theragran] 1 each PO DAILY 09/07/19 01/27/20 Promethazine [Phenergan] 25 mg PO Q6H PRN 01/27/20 01/27/20 SUMAtriptan succinate [Sumatriptan 100 mg PO Q2H PRN MDD 200 mg 01/27/20 01/27/20 Succinate] diazePAM [Diazepam] 5 mg PO DAILY PRN 01/27/20 01/27/20 - Allergies Allergies/Adverse Reactions: Allergies Allergy/AdvReac Type Severity Reaction Status Date / Time amoxicillin [Amoxicillin] AdvReac Unknown Rash Verified 01/27/20 13:36 Penicillins AdvReac Unknown Rash Verified 01/27/20 13:36 Exam - Vital Signs Vital Signs: Vital Signs x48h Temp Pulse Resp BP Pulse Ox 01/29/20 05:00 37.4 C 83 16 133/81 H 97 - Physical Exam Respiratory: positive: Chest non-tender, No respiratory distress Cardiovascular: positive: Regular rate & rhythm Abdomen: positive: Tenderness Results - Lab Results Fish Bones: 01/29/20 04:35 01/29/20 04:35 Other Lab Results: Lab Results x24hrs 01/29/20 01/29/20 Range/Units 04:35 04:35 WBC 6.7 (4.8-10.8) x10^3/uL RBC 3.81 L (4.20-5.40) 10^6/uL Hgb 13.0 (12.0-16.0) g/dL Hct 38.5 (37.0-47.0) % MCV 101.0 H (81.0-99.0) fL MCH 34.1 H (27.0-31.0) pg MCHC 33.8 (32.0-36.0) g/dL RDW 12.3 (12.0-15.0) % Plt Count 243 (130-450) 10^3/uL MPV 9.0 (7.9-10.8) fL Neut # (Auto) 3.9 (1.5-6.6) 10^3/uL Lymph # (Auto) 1.9 (1.5-3.5) 10^3/uL [place] # (Auto) 0.5 (0.0-1.0) 10^3/uL Eos # (Auto) 0.3 (0.0-0.7) 10^3/uL Baso # (Auto) 0.0 (0.0-0.1) 10^3/uL Absolute Nucleated RBC 0.00 x10^3/uL Nucleated RBC % 0.0 /100WBC Sodium 138 (135-145) mmol/L Potassium 3.4 L (3.5-5.0) mmol/L Chloride 105 (101-111) mmol/L Carbon Dioxide 23 (21-32) mmol/L Anion Gap 10.0 (6-13) BUN < 5 L (6-20) mg/dL Creatinine 0.6 (0.4-1.0) mg/dL Estimated GFR (MDRD) 106 (>89) Glucose 96 (70-100) mg/dL Calcium 8.4 L (8.5-10.3) mg/dL Sepsis Event Note (H) - Evaluation Current Stage of Sepsis: Ruled out Impression/Plan - Problem List Problem List: Refractory diverticulitis, plan colonoscopy, diagnostic today. Bowel rest and plan resection plus/minus stoma tomorrow. All risks and benefits discussed.
[2020-01-29] MEDS: MORPHINE 2 MG/ML CARPUJECT IVP PRN (11:32)
--- NOTE | 2020-01-29 12:57 | PROVIDER PROGRESS NOTE ---
Assessment/Plan - Problem List (1) Diverticulitis Qualifiers: Diverticulitis site: large intestine Diverticulitis bleeding: without bleeding Diverticulitis complication: with abscess Qualified Code(s): K57.20 - Diverticulitis of large intestine with perforation and abscess without bleeding Assessment/Plan: 6/ Recurrent diverticulitis. Patient is status post of colonoscopy, patient is comfortable sleep. according to surgeon notes, patient is a planned to have surgery on tomorrow. Continue NPO except medication, change IV fluids of NS to D5 half normal saline with potassium, followup surgeon. pt has low risk 0.4% on revised cardiac risk index(Linus criteria) in pre-operatio n assessment 01/28 pt report her abdominal pain is slight better than yesterday, but she still has nausea and difficult to eat. per surgeon's note, recommend pt is for medical management, not surgery, in hospital at this time. surgeon might discuss with pt for possible surgery option after pt d/c in one or two weeks. continue antibiotics, pain control 6/AT scan of the abdomen reveal patient has acute diverticulitis, recurrent at this similar location as before.Patient failed outpatient treatment, patient already started antibiotics Zosyn in the ER, surgeon was called by the ER, continue with antibiotics, continue pain control, study with clear liquid diet advanced as patient tolerated, intravenous IV fluids (2) Abdominal pain Conclusion/Plan: 01/29 improved 01/28 improved. continue pain control and antibiotics Patient report left low abdomen pain is likely secondary to the patient's acute diverticulitis, continue pain control, started with clear liquid diet today (3) Hypokalemia Conclusion/Plan: 01/29 replaced, lab monitor 01/28 resolved. Patient has a potassium 3.3 today, replacement of the potassium, lab monitor - Current Meds Current Meds: Current Medications Generic Name Dose Route Start Last Admin Trade Name Freq PRN Reason Stop Dose Admin Diazepam 5 mg 01/28/20 18:13 01/28/20 20:23 Valium PO 5 mg DAILY PRN Administration Anxiety Enoxaparin Sodium 40 mg 01/28/20 09:00 01/29/20 08:47 Lovenox SUBQ 40 mg DAILY DESI Administration Piperacillin Sod/Tazobactam 100 mls @ 25 mls/hr 01/27/20 18:00 01/29/20 11:43 Sod 3.375 gm/ Sodium Chloride IV 25 mls/hr Q8H DESI Administration Morphine Sulfate 2 mg 01/27/20 16:11 01/29/20 11:32 Morphine (Carpuject) IVP 2 mg Q2HR PRN Administration Pain 8 to 10 Multivitamins 1 tab 01/29/20 09:00 01/29/20 08:46 Theragran PO 1 tab DAILY DESI Administration Ondansetron HCl 4 mg 01/27/20 16:11 01/29/20 08:46 Zofran Inj IVP 4 mg Q6HR PRN Administration Nausea / Vomiting Oxycodone HCl 5 mg 01/27/20 16:11 01/28/20 01:54 Roxicodone PO 5 mg Q4HR PRN Administration Pain 5 to 7 Pantoprazole Sodium 40 mg 01/28/20 07:00 01/29/20 07:02 Protonix PO 40 mg QDAC DESI Administration Saccharomyces Boulardii 250 mg 01/28/20 09:30 01/29/20 08:46 Florastor PO 250 mg BIDWM DESI Administration Sodium Chloride 10 ml 01/27/20 16:11 01/28/20 22:43 Normal Saline Flush 0.9% IVP 10 ml PRN PRN Administration NEEDED PER PROVIDER ORDERS Sodium Chloride 10 ml 01/27/20 17:00 01/29/20 09:01 Normal Saline Flush 0.9% IVP 10 ml 0100,0900,1700 DESI Administration Sumatriptan Succinate 100 mg 01/28/20 18:27 01/29/20 07:01 Imitrex PO 100 mg Q2H PRN Administration HEADACHE Zolpidem Tartrate 5 mg 01/27/20 16:11 01/28/20 22:43 Ambien PO 5 mg QPM PRN Administration Insomnia - Lab Result Fish Bone Diagrams: 01/29/20 04:35 01/29/20 04:35 - Additional Planning My Orders: My Active Orders 01/28/20 18:13 Melatonin [Melatonin] 6 mg PO QPM PRN Promethazine [Phenergan] 25 mg PO Q6H PRN diazePAM [Valium] 5 mg PO DAILY PRN 01/28/20 18:27 SUMAtriptan [Imitrex] 100 mg PO Q2H PRN 01/29/20 00:01 NPO except Meds [DIET] 01/29/20 09:00 Multivitamin [Theragran] 1 tab PO DAILY 01/29/20 13:00 D5.45ns W/20 Meq KCl 1,000 ml IV 100 mls/hr 01/30/20 05:00 BMP - BASIC METABOLIC PANEL [CHEM] DAILYLAB CBC - COMP BLD CT W/AUTO DIFF [HEME] DAILYLAB 01/31/20 05:00 BMP - BASIC METABOLIC PANEL [CHEM] DAILYLAB CBC - COMP BLD CT W/AUTO DIFF [HEME] DAILYLAB Subjective - Subjective Nursing Reports: No Complaints Objective Vital Signs: Vital Signs - 24 hr 01/28/20 01/28/20 01/29/20 16:47 19:58 01:00 Temperature 37.2 C 37.2 C 36.7 C Heart Rate [ 64 68 67 Brachial] Respiratory 18 17 16 Rate Blood Pressure 138/73 H 114/82 H [Left Brachial artery] Blood Pressure 131/80 H [Right Brachial artery] O2 Saturation 99 99 96 01/29/20 01/29/20 01/29/20 05:00 11:24 11:45 Temperature 37.4 C 36.6 C Heart Rate [ 83 74 69 Brachial] Respiratory 16 16 Rate Blood Pressure [Left Brachial artery] Blood Pressure 133/81 H 115/70 130/89 H [Right Brachial artery] O2 Saturation 97 100 01/29/20 12:15 Temperature Heart Rate [ 66 Brachial] Respiratory 16 Rate Blood Pressure [Left Brachial artery] Blood Pressure 120/75 [Right Brachial artery] O2 Saturation Oxygen O2 Source Room air I&O (Last 24 Hrs): Intake and Output Totals x24h 01/27/20 01/28/20 01/29/20 23:59 23:59 23:59 Intake Total 1300 2910 1100 Output Total 500 700 Balance 800 2210 1100 General: Alert, Oriented x3, No acute distress HEENT: Atraumatic Neck: Supple Lymphatic: no adenopathy Neuro: Alert, Non Focal, Oriented Times 3 Cardiovascular: Regular rate, Normal S1, Normal S2 Respiratory: Chest non-tender, No respiratory distress, Breath sounds nml Abdomen: Normal bowel sounds, Soft Extremities: Normal pulses - Results Results: Laboratory Results WBC 6.7 x10^3/uL (4.8-10.8) 01/29/20 04:35 RBC 3.81 10^6/uL (4.20-5.40) L 01/29/20 04:35 Hgb 13.0 g/dL (12.0-16.0) 01/29/20 04:35 Hct 38.5 % (37.0-47.0) 01/29/20 04:35 MCV 101.0 fL (81.0-99.0) H 01/29/20 04:35 MCH 34.1 pg (27.0-31.0) H 01/29/20 04:35 MCHC 33.8 g/dL (32.0-36.0) 01/29/20 04:35 RDW 12.3 % (12.0-15.0) 01/29/20 04:35 Plt Count 243 10^3/uL (130-450) 01/29/20 04:35 MPV 9.0 fL (7.9-10.8) 01/29/20 04:35 Neut # (Auto) 3.9 10^3/uL (1.5-6.6) 01/29/20 04:35 Lymph # (Auto) 1.9 10^3/uL (1.5-3.5) 01/29/20 04:35 [place] # (Auto) 0.5 10^3/uL (0.0-1.0) 01/29/20 04:35 Eos # (Auto) 0.3 10^3/uL (0.0-0.7) 01/29/20 04:35 Baso # (Auto) 0.0 10^3/uL (0.0-0.1) 01/29/20 04:35 Absolute Nucleated RBC 0.00 x10^3/uL 01/29/20 04:35 Nucleated RBC % 0.0 /100WBC 01/29/20 04:35 PT 12.7 secs (9.9-12.6) H 01/27/20 14:08 INR 1.1 (0.8-1.2) 01/27/20 14:08 Sodium 138 mmol/L (135-145) 01/29/20 04:35 Potassium 3.4 mmol/L (3.5-5.0) L 01/29/20 04:35 Chloride 105 mmol/L (101-111) 01/29/20 04:35 Carbon Dioxide 23 mmol/L (21-32) 01/29/20 04:35 Anion Gap 10.0 (6-13) 01/29/20 04:35 BUN < 5 mg/dL (6-20) L 01/29/20 04:35 Creatinine 0.6 mg/dL (0.4-1.0) 01/29/20 04:35 Estimated GFR (MDRD) 106 (>89) 01/29/20 04:35 Glucose 96 mg/dL (70-100) 01/29/20 04:35 Calcium 8.4 mg/dL (8.5-10.3) L 01/29/20 04:35 Magnesium 1.9 mg/dL (1.7-2.8) 01/28/20 04:25 Total Bilirubin 1.0 mg/dL (0.2-1.0) 01/27/20 14:08 AST 24 IU/L (10-42) 01/27/20 14:08 ALT 19 IU/L (10-60) 01/27/20 14:08 Alkaline Phosphatase 79 IU/L (42-121) 01/27/20 14:08 Total Protein 8.4 g/dL (6.7-8.2) H 01/27/20 14:08 Albumin 4.1 g/dL (3.2-5.5) 01/27/20 14:08 Globulin 4.3 g/dL (2.1-4.2) H 01/27/20 14:08 Albumin/Globulin Ratio 1.0 (1.0-2.2) 01/27/20 14:08 Lipase 26 U/L (22-51) 01/27/20 14:08 Urine Color DARK YELLOW 01/27/20 13:55 Urine Clarity SL. CLOUDY (CLEAR) 01/27/20 13:55 Urine pH 5.5 PH (5.0-7.5) 01/27/20 13:55 Ur Specific [place] >=1.030 (1.002-1.030) H 01/27/20 13:55 Urine Protein TRACE mg/dL (NEGATIVE) 01/27/20 13:55 Urine Glucose (UA) NEGATIVE mg/dL (NEGATIVE) 01/27/20 13:55 Urine Ketones >=80 mg/dL (NEGATIVE) H 01/27/20 13:55 Urine Occult Blood TRACE-INTA (NEGATIVE) 01/27/20 13:55 Urine Nitrite NEGATIVE (NEGATIVE) 01/27/20 13:55 Urine Bilirubin NEGATIVE (NEGATIVE) 01/27/20 13:55 Urine Urobilinogen 1 (NORMAL) E.U./dL (NORMAL) 01/27/20 13:55 Ur Leukocyte Esterase NEGATIVE (NEGATIVE) 01/27/20 13:55 Urine RBC 0-5 /HPF (0-5) 01/27/20 13:55 Urine WBC 4-5 /HPF (0-5) 01/27/20 13:55 Ur Squamous Epith Cells MANY Squamous (<= Few) H 01/27/20 13:55 Urine Bacteria Moderate /HPF (None Seen) H 01/27/20 13:55 Ur Microscopic Review INDICATED 01/27/20 13:55 Urine Culture Comments NOT INDICATED 01/27/20 13:55 Sepsis Event Note (H) - Evaluation Current Stage of Sepsis: Ruled out ABX Reporting Has patient been on IV antibiotics over the past 48 hours?: Yes Current Medications - Current Medications Current Medications: Active Medications Acetaminophen (Tylenol) 650 mg PO Q4HR PRN PRN Reason: Pain 1 to 4 Diazepam (Valium) 5 mg PO DAILY PRN PRN Reason: Anxiety Last Admin: 01/28/20 20:23 Dose: 5 mg Enoxaparin Sodium (Lovenox) 40 mg SUBQ DAILY [facility] Last Admin: 01/29/20 08:47 Dose: 40 mg Piperacillin Sod/Tazobactam (Sod 3.375 gm/ Sodium Chloride) 100 mls @ 25 mls/hr IV Q8H [facility] Last Admin: 01/29/20 11:43 Dose: 25 mls/hr Potassium Chloride/Dextrose/Sod Cl (D5.45ns W/20 Meq Kcl) 1,000 mls @ 100 mls/hr IV .Q10H [facility] Morphine Sulfate (Morphine (Carpuject)) 2 mg IVP Q2HR PRN PRN Reason: Pain 8 to 10 Last Admin: 01/29/20 11:32 Dose: 2 mg Multivitamins (Theragran) 1 tab PO DAILY [facility] Last Admin: 01/29/20 08:46 Dose: 1 tab Non-Formulary Medication (Melatonin [Melatonin]) 6 mg PO QPM PRN PRN Reason: Insomnia Ondansetron HCl (Zofran Inj) 4 mg IVP Q6HR PRN PRN Reason: Nausea / Vomiting Last Admin: 01/29/20 08:46 Dose: 4 mg Oxycodone HCl (Roxicodone) 5 mg PO Q4HR PRN PRN Reason: Pain 5 to 7 Last Admin: 01/28/20 01:54 Dose: 5 mg Pantoprazole Sodium (Protonix) 40 mg PO QDAC [facility] Last Admin: 01/29/20 07:02 Dose: 40 mg Promethazine HCl (Phenergan) 25 mg PO Q6H PRN PRN Reason: Nausea / Vomiting Saccharomyces Boulardii (Florastor) 250 mg PO BIDWM [facility] Last Admin: 01/29/20 08:46 Dose: 250 mg Sodium Chloride (Normal Saline Flush 0.9%) 10 ml IVP PRN PRN PRN Reason: NEEDED PER PROVIDER ORDERS Last Admin: 01/28/20 22:43 Dose: 10 ml Sodium Chloride (Normal Saline Flush 0.9%) 10 ml IVP 0100,0900,1700 [facility] Last Admin: 01/29/20 09:01 Dose: 10 ml Sumatriptan Succinate (Imitrex) 100 mg PO Q2H PRN PRN Reason: HEADACHE Last Admin: 01/29/20 07:01 Dose: 100 mg Zolpidem Tartrate (Ambien) 5 mg PO QPM PRN PRN Reason: Insomnia Last Admin: 01/28/20 22:43 Dose: 5 mg Melatonin 6 mg PO QPM PRN 09/07/19 Multivitamin [Theragran] 1 each PO DAILY 09/07/19 Promethazine [Phenergan] 25 mg PO Q6H PRN 01/27/20 SUMAtriptan succinate [Sumatriptan Succinate] 100 mg PO Q2H PRN MDD 200 mg 01/27/20 diazePAM [Diazepam] 5 mg PO DAILY PRN 01/27/20
[2020-01-29] MEDS: D5.45NS W/20 MEQ KCL 1,000 ML IV SCH ×2 (13:04→22:08)
[2020-01-29] MEDS: oxyCODONE 5 MG TABLET PO PRN ×2 (16:33→23:23)
[2020-01-29] MEDS: diphenhydrAMINE 25 MG CAPSULE PO PRN (19:19)
[2020-01-29] MEDS: ZOLPIDEM 5 MG TABLET PO PRN (23:23)
[2020-01-30] MEDS: SODIUM CHLORIDE FLUSH 0.9% 10 ML SYRINGE IVP SCH ×3 (00:49→16:35)
[2020-01-30] MEDS: PIPERACILLIN/TAZOBACTAM 3.375 GM in SODIUM CHLORIDE 0.9% MINIBAG 100 ML IV SCH ×3 (01:35→17:19)
[2020-01-30 04:43] LABS: BASOPHILS % (AUTO) 0.7 %; EOSINOPHILS # (AUTO) 0.4 10^3/uL (0.0-0.7); EOSINOPHILS % (AUTO) 7.2 %; HGB - HEMOGLOBIN 12.7 g/dL (12.0-16.0); LYMPHOCYTES # (AUTO) 2.3 10^3/uL (1.5-3.5); LYMPHOCYTES % (AUTO) 38.5 %; MEAN CORPUSCULAR HEMOGLOBIN 35.4 pg (27.0-31.0); MEAN CORPUSCULAR HGB CONC 35.2 g/dL (32.0-36.0); MEAN CORPUSCULAR VOLUME 100.6 fL (81.0-99.0); MONOCYTES # (AUTO) 0.5 10^3/uL (0.0-1.0); MONOCYTES % (AUTO) 9.1 %; NEUTROPHILS # (AUTO) 2.6 10^3/uL (1.5-6.6); NEUTROPHILS % (AUTO) 44.2 %; PLT - PLATELET COUNT 245 10^3/uL (130-450); RED BLOOD COUNT 3.59 10^6/uL (4.20-5.40); WHITE BLOOD COUNT 5.8 x10^3/uL (4.8-10.8)
[2020-01-30 04:59] LABS: BUN - BLOOD UREA NITROGEN < 5 mg/dL (6-20); CALCIUM 8.4 mg/dL (8.5-10.3); CARBON DIOXIDE - CO2 22 mmol/L (21-32); CHLORIDE 109 mmol/L (101-111); CREATININE 0.6 mg/dL (0.4-1.0); GLUCOSE 131 mg/dL (70-100); SODIUM 137 mmol/L (135-145)
[2020-01-30] MEDS: PANTOPRAZOLE 40 MG TABLET PO SCH (05:38)
[2020-01-30] MEDS ORDERED: LIDOCAINE 1%-EPI 1:100000 20 ML MDV ONE (07:25)
[2020-01-30] MEDS ORDERED: LACTATED RINGERS 1,000 ML IV ONE ×2 (07:42→11:34)
[2020-01-30] MEDS ORDERED: KETOROLAC 30 MG/ML VIAL IVP ONE (07:42)
[2020-01-30] MEDS ORDERED: ACETAMINOPHEN 1,000 MG/100 ML 100 ML IV ONE (07:42)
[2020-01-30] MEDS ORDERED: HYDROmorphone 1 MG/ML CARPUJECT IVP ONE (07:42)
[2020-01-30] MEDS ORDERED: ONDANSETRON 4 MG/2 ML VIAL IVP ONE (07:42)
[2020-01-30] MEDS ORDERED: LIDOCAINE-MPF 2% 5 ML VIAL IM ONE (07:42)
[2020-01-30] MEDS ORDERED: GLYCOPYRROLATE 1 MG/5 ML VIAL IVP ONE (07:42)
[2020-01-30] MEDS ORDERED: MIDAZOLAM 2 MG/2 ML VIAL IVP ONE (07:42)
[2020-01-30] MEDS ORDERED: DEXAMETHASONE 4 MG/ML VIAL IVP ONE (07:42)
[2020-01-30] MEDS ORDERED: ROCURONIUM 50 MG/5 ML VIAL IVP ONE (07:42)
[2020-01-30] MEDS ORDERED: fentaNYL 100 MCG/2 ML VIAL IVP ONE (07:42)
[2020-01-30] MEDS ORDERED: PROPOFOL 200 MG/20 ML VIAL IVP ONE (07:42)
[2020-01-30] MEDS ORDERED: ROPIVACAINE 0.5% PF 20 ML AMPULE ONE (07:44)
[2020-01-30] MEDS ORDERED: ROPIVACAINE 0.2% PF 20ML VIAL ONE (07:44)
--- NOTE | 2020-01-30 07:45 | ANESTHESIA ---
Pre-Anesthesia VS, & Labs - Diagnosis Diagnosis recurring diverticulitis without abscess or perforation - Procedure Laparoscopic anterior resection, possible loop ileostomy Vital Signs: Temp Pulse Resp BP Pulse Ox 36.9 C 63 16 122/77 97 01/30/20 04:14 01/30/20 04:14 01/30/20 04:14 01/30/20 04:14 01/30/20 04:14 Height 5 ft 10 in Weight (kg) 75 kg Body Mass Index 23.7 - NPO >8 hours - Is Patient ?: No - Lab Results Current Lab Results: Laboratory Tests 01/30/20 04:05: Sodium 137, Potassium 3.6, Chloride 109, Carbon Dioxide 22, Anion Gap 6.0, BUN < 5 L, Creatinine 0.6, Estimated GFR (MDRD) 106, Glucose 131 H, Calcium 8.4 L 01/30/20 04:05: WBC 5.8, RBC 3.59 L, Hgb 12.7, Hct 36.1 L, MCV 100.6 H, MCH 35.4 H, MCHC 35.2, RDW 12.0, Plt Count 245, MPV 9.0, Neut # (Auto) 2.6, Lymph # (Auto) 2.3, Kimble # (Auto) 0.5, Eos # (Auto) 0.4, Baso # (Auto) 0.0, Absolute Nucleated RBC 0.00, Nucleated RBC % 0.0 01/30/20 00:07: POC Whole Bld Glucose 121 H 01/29/20 04:35: Sodium 138, Potassium 3.4 L, Chloride 105, Carbon Dioxide 23, Anion Gap 10.0, BUN < 5 L, Creatinine 0.6, Estimated GFR (MDRD) 106, Glucose 96, Calcium 8.4 L 01/29/20 04:35: WBC 6.7, RBC 3.81 L, Hgb 13.0, Hct 38.5, MCV 101.0 H, MCH 34.1 H , MCHC 33.8, RDW 12.3, Plt Count 243, MPV 9.0, Neut # (Auto) 3.9, Lymph # (Auto) 1.9, Kimble # (Auto) 0.5, Eos # (Auto) 0.3, Baso # (Auto) 0.0, Absolute Nucleated RBC 0.00, Nucleated RBC % 0.0 01/28/20 04:25: Sodium 136, Potassium 3.6, Chloride 106, Carbon Dioxide 20 L, Anion Gap 10.0, BUN 6, Creatinine 0.6, Estimated GFR (MDRD) 106, Glucose 106 H, Calcium 8.2 L, Magnesium 1.9 01/28/20 04:25: WBC 7.7, RBC 3.60 L, Hgb 12.6, Hct 37.0, MCV 102.8 H, MCH 35.0 H , MCHC 34.1, RDW 12.5, Plt Count 248, MPV 9.0, Neut # (Auto) 5.1, Lymph # (Auto) 1.9, [place] # (Auto) 0.5, Eos # (Auto) 0.2, Baso # (Auto) 0.0, Absolute Nucleated RBC 0.00, Nucleated RBC % 0.0 01/27/20 14:08: PT 12.7 H, INR 1.1 01/27/20 14:08: Sodium 135, Potassium 3.3 L, Chloride 100 L, Carbon Dioxide 23, Anion Gap 12.0, BUN 10, Creatinine 0.7, Estimated GFR (MDRD) 89, Glucose 112 H, Calcium 9.5, Total Bilirubin 1.0, AST 24, ALT 19, Alkaline Phosphatase 79, Total Protein 8.4 H, Albumin 4.1, Globulin 4.3 H, Albumin/Globulin Ratio 1.0, Lipase 26 01/27/20 14:08: WBC 10.1, RBC 4.29, Hgb 14.9, Hct 43.0, MCV 100.2 H, MCH 34.7 H, MCHC 34.7, RDW 12.3, Plt Count 286, MPV 8.8, Neut # (Auto) 7.3 H, Lymph # (Auto) 1.9, Kimble # (Auto) 0.5, Eos # (Auto) 0.2, Baso # (Auto) 0.1, Absolute Nucleated RBC 0.00, Nucleated RBC % 0.0 Fish Bones: 01/30/20 04:05 01/30/20 04:05 Home Medications and Allergies Home Medications: Ambulatory Orders Promethazine [Phenergan] 25 mg PO Q6H PRN 01/27/20 SUMAtriptan succinate [Sumatriptan Succinate] 100 mg PO Q2H PRN MDD 200 mg 01/27/20 diazePAM [Diazepam] 5 mg PO DAILY PRN 01/27/20 Active Medications Acetaminophen (Tylenol) 650 mg PO Q4HR PRN PRN Reason: Pain 1 to 4 Diazepam (Valium) 5 mg PO DAILY PRN PRN Reason: Anxiety Last Admin: 01/28/20 20:23 Dose: 5 mg Diphenhydramine HCl (Benadryl) 25 mg PO Q4HR PRN PRN Reason: Allergy Symptoms Last Admin: 01/29/20 19:19 Dose: 25 mg Enoxaparin Sodium (Lovenox) 40 mg SUBQ DAILY [facility] Last Admin: 01/29/20 08:47 Dose: 40 mg Piperacillin Sod/Tazobactam (Sod 3.375 gm/ Sodium Chloride) 100 mls @ 25 mls/hr IV Q8H [facility] Last Infusion: 01/30/20 05:39 Dose: Infused Potassium Chloride/Dextrose/Sod Cl (D5.45ns W/20 Meq Kcl) 1,000 mls @ 100 mls/hr IV .Q10H [facility] Last Admin: 01/29/20 22:08 Dose: 100 mls/hr Morphine Sulfate (Morphine (Carpuject)) 2 mg IVP Q2HR PRN PRN Reason: Pain 8 to 10 Last Admin: 01/29/20 11:32 Dose: 2 mg Multivitamins (Theragran) 1 tab PO DAILY [facility] Last Admin: 01/29/20 08:46 Dose: 1 tab Non-Formulary Medication (Melatonin [Melatonin]) 6 mg PO QPM PRN PRN Reason: Insomnia Ondansetron HCl (Zofran Inj) 4 mg IVP Q6HR PRN PRN Reason: Nausea / Vomiting Last Admin: 01/29/20 08:46 Dose: 4 mg Oxycodone HCl (Roxicodone) 5 mg PO Q4HR PRN PRN Reason: Pain 5 to 7 Last Admin: 01/29/20 23:23 Dose: 5 mg Pantoprazole Sodium (Protonix) 40 mg PO QDAC [facility] Last Admin: 01/30/20 05:38 Dose: 40 mg Promethazine HCl (Phenergan) 25 mg PO Q6H PRN PRN Reason: Nausea / Vomiting Saccharomyces Boulardii (Florastor) 250 mg PO BIDWM [facility] Last Admin: 01/29/20 16:34 Dose: 250 mg Sodium Chloride (Normal Saline Flush 0.9%) 10 ml IVP PRN PRN PRN Reason: NEEDED PER PROVIDER ORDERS Last Admin: 01/28/20 22:43 Dose: 10 ml Sodium Chloride (Normal Saline Flush 0.9%) 10 ml IVP 0100,0900,1700 [facility] Last Admin: 01/30/20 00:49 Dose: Not Given Sumatriptan Succinate (Imitrex) 100 mg PO Q2H PRN PRN Reason: HEADACHE Last Admin: 01/29/20 07:01 Dose: 100 mg Zolpidem Tartrate (Ambien) 5 mg PO QPM PRN PRN Reason: Insomnia Last Admin: 01/29/20 23:23 Dose: 5 mg Melatonin 6 mg PO QPM PRN 09/07/19 Multivitamin [Theragran] 1 each PO DAILY 09/07/19 Promethazine [Phenergan] 25 mg PO Q6H PRN 01/27/20 SUMAtriptan succinate [Sumatriptan Succinate] 100 mg PO Q2H PRN MDD 200 mg 01/27/20 diazePAM [Diazepam] 5 mg PO DAILY PRN 01/27/20 Allergies/Adverse Reactions: Allergies Allergy/AdvReac Type Severity Reaction Status Date / Time amoxicillin [Amoxicillin] AdvReac Unknown Rash Verified 01/27/20 13:36 Penicillins AdvReac Unknown Rash Verified 01/27/20 13:36 Anes History & Medical History - Anesthetic History Anesthesia Complications: reports: No previous complications - Medical History Cardiovascular: reports: None Pulmonary: reports: None Gastrointestinal: reports: Diverticulitis Urinary: reports: Kidney stones Neuro: reports: Migraines Musculoskeletal: reports: None Endocrine/Autoimmune: reports: None Blood Disorders: reports: Anemia Skin: reports: Herpes zoster Smoking Status: Never smoker Psychosocial: reports: Alcohol (2 glasses of wine per day) - Surgical History General: Colonoscopy Gynecologic: section, Tubal ligation Orthopedic: Arthroscopic surgery Dermatologic: Skin grafts Exam General: Alert, Oriented x3, Cooperative, No acute distress Dental: WNL, Other (broken left back bottom tooth) Mouth Openin Fingerbreadth Neck Mobility: Normal Mallampati classification: II Thyromental Distance: 4-6 cm Mental/Cognitive Status: Alert/Oriented X3, Normal for patient Plan Anesthesia Type: General, Transverse Abdominis Plane (TAP) Block (Bilateral) Regional Block: Per Surgeon's request for Post Op pain control Consent for Procedure(s) Verified and Reviewed: Yes Code Status: Attempt Resuscitation ASA classification: 2-Mild systemic disease Is this case an emergency?: No
[2020-01-30] MEDS: SACCHAROMYCES BOULARDII 250 MG CAPSULE PO SCH ×2 (08:37→17:18)
[2020-01-30] MEDS: MULTIVITAMIN TABLET PO SCH (08:37)
[2020-01-30] MEDS: ENOXAPARIN 40 MG/0.4 ML SYRINGE SUBQ SCH (08:37)
[2020-01-30] MEDS ORDERED: LIDOCAINE 1%-EPI 1:100000 20 ML MDV SUBQ ONE ×3 (08:50)
--- NOTE | 2020-01-30 10:36 | PROVIDER PROGRESS NOTE ---
Assessment/Plan - Problem List (1) Status post colon resection Assessment/Plan: 6/ Patient is status post of anterior colon resection, followup surgeon, continue pain control, IVF, if continue antibiotics and when start to have diet per surgeon, incentive spirometer, s/p nurse care and support (2) refractory Diverticulitis 6/5 Refractory diverticulitis and failure on medical management. Patient is status post of anterior colon resection, followup surgeon. pain control, if co ntinue antibiotics and when start to have diet per surgeon, incentive spirometer, s/p nurse care ans support pt has low risk 0.4% on revised cardiac risk index(Linus criteria) in pre-oper ation assessment 6/ pt report her abdominal pain is slight better than yesterday, but she still has nausea and difficult to eat. per surgeon's note, recommend pt is for medical management, not surgery, in hospital at this time. surgeon might discuss with pt for possible surgery option after pt d/c in one or two weeks. continue antibiotics, pain control 6/AT scan of the abdomen reveal patient has acute diverticulitis, recurrent at this similar location as before.Patient failed outpatient treatment, patient already started antibiotics Zosyn in the ER, surgeon was called by the ER, continue with antibiotics, continue pain control, study with clear liquid diet advanced as patient tolerated, intravenous IV fluids (3) acute on chronic Abdominal pain Conclusion/Plan: 6/ s/p of anterior colon resection, continue pain control 01/28 improved. continue pain control and antibiotics Patient report left low abdomen pain is likely secondary to the patient's acute diverticulitis, continue pain control, started with clear liquid diet today (4) Hypokalemia Conclusion/Plan: 01/29 resolved / resolved. Patient has a potassium 3.3 today, replacement of the potassium, lab monitor (2) Diverticulitis Qualifiers: Diverticulitis site: large intestine Diverticulitis bleeding: without bleeding Diverticulitis complication: with abscess Qualified Code(s): K57.20 - Diverticulitis of large intestine with perforation and abscess without bleeding - Current Meds Current Meds: Current Medications Generic Name Dose Route Start Last Admin Trade Name Freq PRN Reason Stop Dose Admin Diazepam 5 mg 01/28/20 18:13 01/28/20 20:23 Valium PO 5 mg DAILY PRN Administration Anxiety Diphenhydramine HCl 25 mg 01/29/20 18:58 01/29/20 19:19 Benadryl PO 25 mg Q4HR PRN Administration Allergy Symptoms Enoxaparin Sodium 40 mg 01/28/20 09:00 01/30/20 08:37 Lovenox SUBQ Not Given DAILY [facility] Piperacillin Sod/Tazobactam 100 mls @ 25 mls/hr 01/27/20 18:00 01/30/20 05:39 Sod 3.375 gm/ Sodium Chloride IV Infused Q8H [facility] Infusion Potassium Chloride/Dextrose/Sod Cl 1,000 mls @ 100 mls/hr 01/29/20 13:00 01/30/20 08:36 D5.45ns W/20 Meq Kcl IV Infused .Q10H [facility] Infusion Morphine Sulfate 2 mg 01/27/20 16:11 01/29/20 11:32 Morphine (Carpuject) IVP 2 mg Q2HR PRN Administration Pain 8 to 10 Multivitamins 1 tab 01/29/20 09:00 01/30/20 08:37 Theragran PO Not Given DAILY [facility] Ondansetron HCl 4 mg 01/27/20 16:11 01/29/20 08:46 Zofran Inj IVP 4 mg Q6HR PRN Administration Nausea / Vomiting Oxycodone HCl 5 mg 01/27/20 16:11 01/29/20 23:23 Roxicodone PO 5 mg Q4HR PRN Administration Pain 5 to 7 Pantoprazole Sodium 40 mg 01/28/20 07:00 01/30/20 05:38 Protonix PO 40 mg QDAC [facility] Administration Saccharomyces Boulardii 250 mg 01/28/20 09:30 01/30/20 08:37 Florastor PO Not Given BIDWM [facility] Sodium Chloride 10 ml 01/27/20 16:11 01/28/20 22:43 Normal Saline Flush 0.9% IVP 10 ml PRN PRN Administration NEEDED PER PROVIDER ORDERS Sodium Chloride 10 ml 01/27/20 17:00 01/30/20 08:37 Normal Saline Flush 0.9% IVP Not Given 0100,0900,1700 [facility] Sumatriptan Succinate 100 mg 01/28/20 18:27 01/29/20 07:01 Imitrex PO 100 mg Q2H PRN Administration HEADACHE Zolpidem Tartrate 5 mg 01/27/20 16:11 01/29/20 23:23 Ambien PO 5 mg QPM PRN Administration Insomnia - Lab Result Fish Bone Diagrams: 01/30/20 04:05 01/30/20 04:05 - Additional Planning My Orders: My Active Orders 01/29/20 13:00 D5.45ns W/20 Meq KCl 1,000 ml IV 100 mls/hr 01/29/20 18:58 diphenhydrAMINE [Benadryl] 25 mg PO Q4HR PRN 01/30/20 00:01 NPO except Meds [DIET] 01/31/20 05:00 BMP - BASIC METABOLIC PANEL [CHEM] DAILYLAB CBC - COMP BLD CT W/AUTO DIFF [HEME] DAILYLAB Subjective - Subjective Patient Reports: Feeling Better Objective Vital Signs: Vital Signs - 24 hr 01/29/20 01/29/20 01/29/20 11:24 11:45 12:15 Temperature 36.6 C Heart Rate [ 74 69 66 Brachial] Respiratory 16 16 Rate Blood Pressure 115/70 130/89 H 120/75 [Right Brachial artery] O2 Saturation 100 01/29/20 01/29/20 01/29/20 13:10 15:26 20:07 Temperature 36.8 C 37 C 36.8 C Heart Rate [ 67 63 66 Brachial] Respiratory 18 18 16 Rate Blood Pressure 138/77 H 126/96 H 119/78 [Right Brachial artery] O2 Saturation 97 99 98 01/30/20 01/30/20 00:10 04:14 Temperature 37.0 C 36.9 C Heart Rate [ 65 63 Brachial] Respiratory 16 16 Rate Blood Pressure 116/72 122/77 [Right Brachial artery] O2 Saturation 97 97 Oxygen O2 Source Room air I&O (Last 24 Hrs): Intake and Output Totals x24h 01/28/20 01/29/20 01/30/20 23:59 23:59 23:59 Intake Total 2910 2626.667 1100 Output Total 700 250 Balance 2210 2626.667 850 General: Alert, No acute distress HEENT: Atraumatic Neck: Supple Lymphatic: no adenopathy Neuro: Alert, Non Focal Cardiovascular: Regular rate, Normal S1, Normal S2 Respiratory: Chest non-tender, No respiratory distress, Breath sounds nml Abdomen: Normal bowel sounds, Soft Extremities: No edema, Normal pulses - Results Results: Laboratory Results WBC 5.8 x10^3/uL (4.8-10.8) 01/30/20 04:05 RBC 3.59 10^6/uL (4.20-5.40) L 01/30/20 04:05 Hgb 12.7 g/dL (12.0-16.0) 01/30/20 04:05 Hct 36.1 % (37.0-47.0) L 01/30/20 04:05 MCV 100.6 fL (81.0-99.0) H 01/30/20 04:05 MCH 35.4 pg (27.0-31.0) H 01/30/20 04:05 MCHC 35.2 g/dL (32.0-36.0) 01/30/20 04:05 RDW 12.0 % (12.0-15.0) 01/30/20 04:05 Plt Count 245 10^3/uL (130-450) 01/30/20 04:05 MPV 9.0 fL (7.9-10.8) 01/30/20 04:05 Neut # (Auto) 2.6 10^3/uL (1.5-6.6) 01/30/20 04:05 Lymph # (Auto) 2.3 10^3/uL (1.5-3.5) 01/30/20 04:05 [place] # (Auto) 0.5 10^3/uL (0.0-1.0) 01/30/20 04:05 Eos # (Auto) 0.4 10^3/uL (0.0-0.7) 01/30/20 04:05 Baso # (Auto) 0.0 10^3/uL (0.0-0.1) 01/30/20 04:05 Absolute Nucleated RBC 0.00 x10^3/uL 01/30/20 04:05 Nucleated RBC % 0.0 /100WBC 01/30/20 04:05 PT 12.7 secs (9.9-12.6) H 01/27/20 14:08 INR 1.1 (0.8-1.2) 01/27/20 14:08 Sodium 137 mmol/L (135-145) 01/30/20 04:05 Potassium 3.6 mmol/L (3.5-5.0) 01/30/20 04:05 Chloride 109 mmol/L (101-111) 01/30/20 04:05 Carbon Dioxide 22 mmol/L (21-32) 01/30/20 04:05 Anion Gap 6.0 (6-13) 01/30/20 04:05 BUN < 5 mg/dL (6-20) L 01/30/20 04:05 Creatinine 0.6 mg/dL (0.4-1.0) 01/30/20 04:05 Estimated GFR (MDRD) 106 (>89) 01/30/20 04:05 Glucose 131 mg/dL (70-100) H 01/30/20 04:05 POC Whole Bld Glucose 121 mg/dL (70 - 100) H 01/30/20 00:07 Calcium 8.4 mg/dL (8.5-10.3) L 01/30/20 04:05 Magnesium 1.9 mg/dL (1.7-2.8) 01/28/20 04:25 Total Bilirubin 1.0 mg/dL (0.2-1.0) 01/27/20 14:08 AST 24 IU/L (10-42) 01/27/20 14:08 ALT 19 IU/L (10-60) 01/27/20 14:08 Alkaline Phosphatase 79 IU/L (42-121) 01/27/20 14:08 Total Protein 8.4 g/dL (6.7-8.2) H 01/27/20 14:08 Albumin 4.1 g/dL (3.2-5.5) 01/27/20 14:08 Globulin 4.3 g/dL (2.1-4.2) H 01/27/20 14:08 Albumin/Globulin Ratio 1.0 (1.0-2.2) 01/27/20 14:08 Lipase 26 U/L (22-51) 01/27/20 14:08 Urine Color DARK YELLOW 01/27/20 13:55 Urine Clarity SL. CLOUDY (CLEAR) 01/27/20 13:55 Urine pH 5.5 PH (5.0-7.5) 01/27/20 13:55 Ur Specific [place] >=1.030 (1.002-1.030) H 01/27/20 13:55 Urine Protein TRACE mg/dL (NEGATIVE) 01/27/20 13:55 Urine Glucose (UA) NEGATIVE mg/dL (NEGATIVE) 01/27/20 13:55 Urine Ketones >=80 mg/dL (NEGATIVE) H 01/27/20 13:55 Urine Occult Blood TRACE-INTA (NEGATIVE) 01/27/20 13:55 Urine Nitrite NEGATIVE (NEGATIVE) 01/27/20 13:55 Urine Bilirubin NEGATIVE (NEGATIVE) 01/27/20 13:55 Urine Urobilinogen 1 (NORMAL) E.U./dL (NORMAL) 01/27/20 13:55 Ur Leukocyte Esterase NEGATIVE (NEGATIVE) 01/27/20 13:55 Urine RBC 0-5 /HPF (0-5) 01/27/20 13:55 Urine WBC 4-5 /HPF (0-5) 01/27/20 13:55 Ur Squamous Epith Cells MANY Squamous (<= Few) H 01/27/20 13:55 Urine Bacteria Moderate /HPF (None Seen) H 01/27/20 13:55 Ur Microscopic Review INDICATED 01/27/20 13:55 Urine Culture Comments NOT INDICATED 01/27/20 13:55 Sepsis Event Note (H) - Evaluation Current Stage of Sepsis: Ruled out ABX Reporting Has patient been on IV antibiotics over the past 48 hours?: Yes Current Medications - Current Medications Current Medications: Active Medications Acetaminophen (Tylenol) 650 mg PO Q4HR PRN PRN Reason: Pain 1 to 4 Diazepam (Valium) 5 mg PO DAILY PRN PRN Reason: Anxiety Last Admin: 01/28/20 20:23 Dose: 5 mg Diphenhydramine HCl (Benadryl) 25 mg PO Q4HR PRN PRN Reason: Allergy Symptoms Last Admin: 01/29/20 19:19 Dose: 25 mg Enoxaparin Sodium (Lovenox) 40 mg SUBQ DAILY [facility] Hydromorphone HCl (Dilaudid Inj Syringe) 0.5 mg IVP Q2H PRN PRN Reason: PAIN Last Admin: 01/30/20 12:09 Dose: 0.5 mg Piperacillin Sod/Tazobactam (Sod 3.375 gm/ Sodium Chloride) 100 mls @ 25 mls/hr IV Q8H [facility] Last Admin: 01/30/20 12:35 Dose: Not Given Potassium Chloride/Dextrose/Sod Cl (D5.45ns W/20 Meq Kcl) 1,000 mls @ 83.333 mls/hr IV .Q12H [facility] Last Admin: 01/30/20 12:53 Dose: 83.333 mls/hr Metoclopramide HCl (Reglan Inj) 10 mg IVP Q6HR PRN PRN Reason: Nausea / Vomiting Morphine Sulfate (Morphine (Carpuject)) 2 mg IVP Q2HR PRN PRN Reason: Pain 8 to 10 Last Admin: 01/29/20 11:32 Dose: 2 mg Multivitamins (Theragran) 1 tab PO DAILY [facility] Last Admin: 01/30/20 08:37 Dose: Not Given Non-Formulary Medication (Melatonin [Melatonin]) 6 mg PO QPM PRN PRN Reason: Insomnia Ondansetron HCl (Zofran Inj) 4 mg IVP Q6HR PRN PRN Reason: Nausea / Vomiting Oxycodone HCl (Roxicodone) 5 mg PO Q4HR PRN PRN Reason: Pain 5 to 7 Last Admin: 01/29/20 23:23 Dose: 5 mg Pantoprazole Sodium (Protonix) 40 mg PO QDAC [facility] Polyethylene Glycol (Miralax) 17 gm PO DAILY PRN PRN Reason: Bowel Protocol Promethazine HCl (Phenergan) 25 mg PO Q6H PRN PRN Reason: Nausea / Vomiting Saccharomyces Boulardii (Florastor) 250 mg PO BIDWM [facility] Last Admin: 01/30/20 08:37 Dose: Not Given Sodium Chloride (Normal Saline Flush 0.9%) 10 ml IVP PRN PRN PRN Reason: NEEDED PER PROVIDER ORDERS Last Admin: 01/28/20 22:43 Dose: 10 ml Sodium Chloride (Normal Saline Flush 0.9%) 10 ml IVP 0100,0900,1700 [facility] Last Admin: 01/30/20 08:37 Dose: Not Given Sumatriptan Succinate (Imitrex) 100 mg PO Q2H PRN PRN Reason: HEADACHE Last Admin: 01/29/20 07:01 Dose: 100 mg Zolpidem Tartrate (Ambien) 5 mg PO QPM PRN PRN Reason: Insomnia Last Admin: 01/29/20 23:23 Dose: 5 mg Melatonin 6 mg PO QPM PRN 09/07/19 Multivitamin [Theragran] 1 each PO DAILY 09/07/19 Promethazine [Phenergan] 25 mg PO Q6H PRN 01/27/20 SUMAtriptan succinate [Sumatriptan Succinate] 100 mg PO Q2H PRN MDD 200 mg 01/27/20 diazePAM [Diazepam] 5 mg PO DAILY PRN 01/27/20
[2020-01-30] MEDS ORDERED: SUGAMMADEX 200 MG/2 ML VIAL IVP ONE (11:10)
--- NOTE | 2020-01-30 11:23 | OPERATIVE REPORT ---
Operative Report - General Admit Date: 01/29/20 Planned Procedure: 1. Laparoscopic anterior resection 2. Laparoscopic splenic flexure mobilization 3. Likely loop ileostomy Pre-Op Diagnosis: 1. Refractory diverticulitis, chronic, failure medical management Procedure Performed: 1. Diagnostic laparoscopy 2. Laparoscopic adhesio lysis 3. Laparoscopic anterior resection 4. Laparoscopic splenic flexure mobilization 5. Rigid proctoscopy 6. Laparoscopic loop ileostomy 7. Tap block per anesthesia 8. Drain placement 9. Primary umbilical hernia repair Post Op Diagnosis: Same, abdominal adhesions, large phlegmonous change, viable anastomosis. - Procedure Note Primary Surgeon: Nuvia Secondary Surgeon: Nolberto Anesthesia Provider: Molly Anesthesia Technique: General ET tube, Regional block Pathology: Upper Rectum, Rectosigmoid Colon, Sigmoid Colon Estimated Blood Loss (mL): 75 Drain/Tube Type: Will drain Indications: 1. Refractory diverticulitis 2. Failure medical management 3. Diverticular stricture 4. Chronic abdominal pain 5. Sepsis Findings: 1. Anterior abdominal adhesions midline at historic Pfannenstiel site from historic . 2. Phlegmonous change mid sigmoid at site of an sigmoid stricture. 3. No tension, viable, healthy anastomosis from the sigmoid to the upper rectum. 4. Viable loop ileostomy. 5. Umbilical hernia status post repair. - Other Other Information/Narrative: Procedure: 1. Diagnostic laparoscopy 2. Laparoscopic adhesiolysis 3. Laparoscopic anterior resection 4. Laparoscopic splenic flexure mobilization 5. Rigid proctoscopy 6. Laparoscopic loop ileostomy 7. Tap block per anesthesia 8. Drain placement 9. Primary umbilical hernia repair Findings: 1. Anterior abdominal adhesions midline at historic Pfannenstiel site from historic . 2. Phlegmonous change mid sigmoid at site of an sigmoid stricture. 3. No tension, viable, healthy anastomosis from the sigmoid to the upper rectum. 4. Viable loop ileostomy. 5. Umbilical hernia status post repair. Sigmoid diverticulitis extending to the upper rectum and into the pelvic inlet with changes notable to the left pelvic sidewall, however the left adnexal structures spared. We did a double stapled anastomosis with a 28 EEA without any complication. Extraction site was GelPort and ultimate ileostomy site, no feculent purulent peritonitis noted. Localized, focal peritonitis with associated phlegmon, however no abscess appreciated. Please note height of the dissection (clearly the upper rectum was visualized given the splaying of taenia). Anastomosis was performed following resection given the stability of the patient and in a setting that was absent diffuse peritonitis. Moreover, given the extent of the dissection necessary to achieve a distal margin, the associated adnexal inflammatory changes, the diverticular stricture and the known diverticular disease (refractory) proceeded with temporary loop ileostomy. DESCRIPTION OF PROCEDURE: OPERATIVE REPORT: The patient was taken to the operating room, placed supine on the operating table. Informed consent had been already confirmed. The patient was placed for bilateral lower extremity serial compression devices and patient was induced for general endotracheal anesthesia. The patient's legs were placed in Amilcar stirrups with both arms tucked and all pressure points padded and protected. The patient was already on an anti-skid foam devika, and was further taped across chest for added security. Patient was performed for tap block by anesthesia. She was already on scheduled antibiotics for diverticulitis. A time out was called and agreed to by all in the room. Watson catheter was already in place. The patient was thereafter again prepped and draped in the usual sterile fashion for the abdominal portion of this case. Time out was performed and confirmed. Access and insufflation of the abdomen was achieved by open Savana technique, with camera port access located within the umbilicus. A Circumlinear incision was made at the level of the umbilicus. At this time an umbilical hernia was appreciated for which surgical repair was indicated. To afford appropriate access to the defect for the low anterior resection we proceeded to isolate the umbilical stalk from the surrounding subcutaneous fat. At this time the umbilical stalk was dissected free using Bovie electrocautery from the overlying skin without any associated buttonholing as a result. With this completed, and as listed elsewhere, any additional operative interventions proceeded if performed. We proceeded as follows with the remainder of the case. Once adequate insufflation was achieved, the abdomen was inspected and there was no evidence of trauma, stomach was decompressed after OGT placement, and other intraabdominal findings are as listed above: extensive intraabdominal adhesions of the omentum to anterior abdominal wall. Extensive adhesions of the sigmoid colon to the left pelvic sidewall and adnexal structures. Thereafter, we opted to proceed with laparoscopic surgery. Trocar placement: Savana at the level of the umbilicus, left lower quadrant Gel Port, 5mm Suprapubic. Abdomen was extensively irrigated clear. Ileostomy was constructed as follows: The left lower quadrant GelPort was placed approximately in the location of an anticipated loop ileostomy as follows.Trephine of skin overlying the right abdominal wall was resected within the triangle that encompassed the umbilicus, the anterior superior iliac spine and the pubis (or as preoperatively marked). Vertical division of the subcutaneous fat to the level of the fascia thereafter was performed with electrocautery. The rectus was bluntly with a Danika clamp with hemostasis achieved. The posterior fascia/peritoneum was divided protecting the underlying structures. All trocar cannulas were placed under direct laparoscopic guidance without any consequential intraabdominal trauma per above. Case began with adhesiolysis as follows: Trocars were sequentially placed towards affording appropriate abdominal access for laparoscopic and ultimately Laparoscopic adhesiolysis and enterolysis commences. This was performed in such a way as to maximize exposure and minimize abdominal trauma. We clearly visualized, after appropriate and lengthy laparos copic adhesiolysis, each trocar placement. Thereafter once appropriate and safe exposure was achieved without any inadvertent injuries or other complicating factors, we proceeded to continue with adhesiolysis to address the patient's extensive intra-abdominal adhesions using sharp Lap dissection, diligent electrocautery, and appropriate countertraction. Please note for multiple reasons as listed above under brief procedural findings, this patient was best suited to minimal access adhesiolysis towards avoiding open intervention, reducing the associated risks thereof, maximizing recovery, minimizing postoperative morbidity and associated stigmata, and enhancing the patient's convalescence towards assuring safe and expeditious ushering into the next step of therapeutic intervention which was crucial given presenting sepsis. This proceeded without any untoward complications, and without any inadvertent injuries or other adverse effect events. With adhesions lysed we proceeded with resection as follows. Along the rectosigmoid mesocolon, the medial peritoneum was incised using the cautery. This was carefully dissected down laterally. The ureter and gonadal vessels were noted and swept down away from colonic mesentery. With this accomplished, and both the ureter and gonadal vessels protected, the inferior mesenteric artery was encircled and divided using EndoGIA vascular staple load, with hemostasis achieved. We proceeded with splenic flexure mobilization taking the lateral peritoneal attachments all the way up affording adequate mobility along with the retroperitoneal attachments carefully minding the location of the ureter and associated structures. No inadvertent injuries or trauma resulted. Once adequate mobility was achieved we proceeded as follows. Once this was completed, we proceeded to continue mobilization of distal rectosigmoid and rectum. The avascular plane between the mesorectum and the presacral space was thereafter entered. This dissection was continued down through to the level of the upper rectum. This was all performed using Ligasure, cautery and countertraction. In addition, the lateral peritoneal reflections of rectum were also divided and ultimately anterior peritoneal reflection of the rectum was divided as well. The mesorectum was then continuously mobilized using Bovie electrocautery. Care was taken not to enter the presacral venous plexus. Extensive adhesions noted to the left adnexal structures associated with the patient's historic refractory chronic diverticular disease. Were able to preserve the left tube and ovary without any consequential injury. Again the left ureter was identified and protected throughout. Please see above findings for the height of the dissection (clearly the upper rectum was visualized given the splaying of taenia) and the specific margins performed during this dissection. Once this was completed with adequate distal margin assured in an appropriately mobilized rectum, the mesorectum was then divided using Ligasure vessel sealing device. With mesorectum divided, and hemostatic, the rectum was appropriately cleared and using Endo-stapling device, the upper rectum was thereafter stapled and divided; again ureters were noted and protected throughout. With the sigmoid colon mobilized and rectum divided, we planned to exteriorize the resection specimen through the GelPort site. With this completed, we exteriorized the specimen, chose an area of viable colon proximal to diseased segment, completely mobilized the splenic flexure laparoscopically with the patient in reverse Trendelenburg position. We then divided the mesentery using the energy device and 2-0 ligatures in the clamp/clamp/cut fashion. We placed a pursestring with 2-0 Prolene and thereafter, the 28 EEA anvil was placed into the lumen. With this completed, anvil was replaced into the abdomen, and proceeded to perform the end to end anastomosis after resufflation by closing the Gonzales wound ring. Additional mobilization was performed of the peritoneal reflection which allowed, after dividing the peritoneum surrounding rectum, additional distal mobility without any concern for tension. We confirmed no tension at the level of the planned coloproctostomy. The EEA stapler was placed through rectum and once appropriately positioned, the spike thereafter was engaged through the staple line of the rectal stump under direct laparoscopic guidance. The spike was then removed and taken out of the abdomen. This was then mated with the trocar of the anvil and once adequately engaged and the colon checked for orientation without evidence of twist, torsion or tension, the EEA was closed and adequate tension was achieved on meter, it was fired without any complication. Again, ureters, both left and right, were identified and protected throughout the entirety of this case. With the EEA fired, donuts were harvested and both were complete and thereafter we performed insufflation test using rigid proctosigmoidoscope under saline immersion without evidence of bubbles or air leak noted laparoscopically. This was done with pinpoint as well. We laparoscopically placed a Will drain through the suprapubic port near the anastomosis. The right lower quadrant GelPort was used to mature the ileostomy, loop. Towards maturing the ileostomy, the terminal ileum was brought through the ileostomy site as listed above without torsion or twisting. The wound ring was thereafter removed from the incision, and the fascia was thereafter approximated using a 0 Vicryl in figure of eight fashion to prevent parastomal hernia. It was then matured at the conclusion of this case using multiple interrupted sutures of 2-0 Vicryl sutures placed in such a way as to tack the full thickness of the edge of the ileum to a subcuticular layer of the skin in addition to maturation in the standard Leonie ileostomy fashion. An ostomy appliance was ultimately placed. Fascia and surrounding skin was appropriately approximated to accommodate the loop ileostomy, which, as stated, at the end of case was matured in a Leonie fashion. 19 Will drain was laparoscopically placed in the pelvis without complication. All counts for sponges, needles, and instruments were correct at the conclusion of this operative case. All incisions were injected with 0.5% Marcaine. The wounds were dressed with Telfa and Tegaderm. Patient was taken extubated to the PACU in stable condition. Tolerated procedure well for which there was no complication. The ileostomy site was partially closed in order to accommodate a single finger breath prior to maturation. Moreover the umbilical site was closed with multiple [id number] of 0 Vicryl followed by umbilicoplasty. Please note that glove change was performed after performing the colon resection and insertion of the anvil. Please also note that maturation of the ileostomy was the last step performed after all other trocar skin and subcutaneous wounds had been closed. We proceeded thereafter to perform umbilicoplasty having already extensively irrigated the operative wound with sterile saline. With this complete we closed the skin as follows: skin bruno. All counts for sponges, needles, and instruments were correct at the conclusion of this operative case. All incisions were injected with a with local for emil- and postoperative analgesia. The wounds were dressed with Telfa and Tegaderm. Patient was taken extubated to the PACU in stable condition once ureteral stents were removed. I was present for the entirety of this operative intervention.
[2020-01-30] MEDS ORDERED: HYDROmorphone 0.5 MG/0.5 ML SYRINGE IVP ONE (11:44)
[2020-01-30] MEDS ORDERED: polyethylene glycoL 3350 17 GM PACKET PO PRN (11:44)
[2020-01-30] MEDS ORDERED: METOCLOPRAMIDE 10 MG/2 ML VIAL IVP PRN (11:44)
[2020-01-30] MEDS ORDERED: HYDROmorphone 0.5 MG/0.5 ML SYRINGE IVP PRN (11:44)
[2020-01-30] MEDS ORDERED: ACETAMINOPHEN 1,000 MG/100 ML 100 ML IV SCH (11:44)
[2020-01-30] MEDS ORDERED: LACTATED RINGERS 1,000 ML IV SCH ×2 (12:00)
[2020-01-30] MEDS ORDERED: HYDROmorphone 1 MG/ML CARPUJECT ONE (12:10)
[2020-01-30] MEDS: D5.45NS W/20 MEQ KCL 1,000 ML IV SCH (12:53)
[2020-01-30] MEDS: ONDANSETRON 4 MG/2 ML VIAL IVP PRN (13:56)
[2020-01-30] MEDS: MORPHINE 2 MG/ML CARPUJECT IVP PRN ×4 (13:56→20:49)
[2020-01-30] MEDS: oxyCODONE 5 MG TABLET PO PRN (22:17)
[2020-01-30] MEDS: diphenhydrAMINE 25 MG CAPSULE PO PRN (22:17)
[2020-01-31] MEDS: MORPHINE 2 MG/ML CARPUJECT IVP PRN ×3 (00:14→12:45)
[2020-01-31] MEDS: SODIUM CHLORIDE FLUSH 0.9% 10 ML SYRINGE IVP SCH ×3 (00:14→16:46)
[2020-01-31] MEDS: ONDANSETRON 4 MG/2 ML VIAL IVP PRN ×2 (00:18→08:08)
[2020-01-31] MEDS: SODIUM CHLORIDE FLUSH 0.9% 10 ML SYRINGE IVP PRN ×2 (00:18→05:28)
[2020-01-31] MEDS: D5.45NS W/20 MEQ KCL 1,000 ML IV SCH ×2 (00:38→12:32)
[2020-01-31] MEDS: diazePAM 5 MG TABLET PO PRN (00:38)
[2020-01-31] MEDS: oxyCODONE 5 MG TABLET PO PRN ×2 (02:43→08:08)
[2020-01-31] MEDS: diphenhydrAMINE 25 MG CAPSULE PO PRN (02:43)
[2020-01-31] MEDS: PIPERACILLIN/TAZOBACTAM 3.375 GM in SODIUM CHLORIDE 0.9% MINIBAG 100 ML IV SCH ×3 (02:44→17:50)
[2020-01-31 05:24] LABS: BASOPHILS % (AUTO) 0.2 %; EOSINOPHILS % (AUTO) 0.3 %; HGB - HEMOGLOBIN 13.6 g/dL (12.0-16.0); LYMPHOCYTES # (AUTO) 1.9 10^3/uL (1.5-3.5); LYMPHOCYTES % (AUTO) 17.3 %; MEAN CORPUSCULAR HEMOGLOBIN 34.4 pg (27.0-31.0); MEAN CORPUSCULAR HGB CONC 34.5 g/dL (32.0-36.0); MEAN CORPUSCULAR VOLUME 99.7 fL (81.0-99.0); MEAN PLATELET VOLUME 9.1 fL (7.9-10.8); MONOCYTES # (AUTO) 0.9 10^3/uL (0.0-1.0); MONOCYTES % (AUTO) 7.6 %; NEUTROPHILS # (AUTO) 8.3 10^3/uL (1.5-6.6); NEUTROPHILS % (AUTO) 74.1 %; PLT - PLATELET COUNT 282 10^3/uL (130-450); RED BLOOD COUNT 3.95 10^6/uL (4.20-5.40); RED CELL DISTRIBUTION WIDTH 11.9 % (12.0-15.0); WHITE BLOOD COUNT 11.2 x10^3/uL (4.8-10.8)
[2020-01-31] MEDS: PROMETHAZINE 25 MG TABLET PO PRN ×2 (05:28→12:45)
[2020-01-31 05:49] LABS: ALBUMIN 2.9 g/dL (3.2-5.5); ALBUMIN/GLOBULIN RATIO 0.9 (1.0-2.2); ALKALINE PHOSPHATASE 51 IU/L (42-121); ALT ALANINE AMINOTRANSFERASE 12 IU/L (10-60); AST ASPARTATE AMINOTRANSFERASE 14 IU/L (10-42); BILIRUBIN,TOTAL 0.4 mg/dL (0.2-1.0); BUN - BLOOD UREA NITROGEN < 5 mg/dL (6-20); CALCIUM 8.6 mg/dL (8.5-10.3); CARBON DIOXIDE - CO2 23 mmol/L (21-32); CHLORIDE 103 mmol/L (101-111); CREATININE 0.5 mg/dL (0.4-1.0); GLUCOSE 146 mg/dL (70-100); SODIUM 134 mmol/L (135-145); TOTAL PROTEIN 6.3 g/dL (6.7-8.2)
[2020-01-31 06:03] LABS: MAGNESIUM 1.8 mg/dL (1.7-2.8); PHOSPHORUS 3.1 mg/dL (2.5-4.6)
[2020-01-31] MEDS: PANTOPRAZOLE 40 MG TABLET PO SCH (06:21)
[2020-01-31] MEDS: SACCHAROMYCES BOULARDII 250 MG CAPSULE PO SCH (08:08)
[2020-01-31] MEDS: MULTIVITAMIN TABLET PO SCH (08:08)
[2020-01-31 08:29] LABS: HCG UR QUAL NEGATIVE
[2020-01-31] MEDS ORDERED: ENOXAPARIN 40 MG/0.4 ML SYRINGE SUBQ SCH (09:00)
--- NOTE | 2020-01-31 12:15 | PROVIDER PROGRESS NOTE ---
Hospitalist Cross-cover Note - Cross-Cover Note Cross-Cover Note: The surgeon, Dr Lamin Pedersen, has taken over the care of this patient, as of today. She will now be on his (surgical) service. Hospitalist Team is signing off.
--- NOTE | 2020-01-31 13:29 | PROVIDER PROGRESS NOTE ---
Subjective - General Admit Date: 01/29/20 Procedure Date: 01/30/20 (Patient admitted on January 25, consulted on by Surgery on SundayJanuary 26, seen by me January 27. Colonoscopy performed on January 28. R esection January 29.) Post Op Days: 1 Procedure Performed: Diagnostic laparoscopy, laparoscopic anterior resection, for diverticulitis - Review of Systems Drain Type: Will drain General: positive: Other (Postoperative pain) HEENT: positive: No symptoms Pulmonary: positive: No symptoms Cardiovascular: positive: No symptoms Gastrointestinal: positive: Abdominal pain, Other. negative: Nausea, Vomiting, Diarrhea (Denies nausea denies vomiting. Denies flatus or bowel movement per anus. Multiple bowel movements per stoma. Tolerating diet. Postoperative incisional abdominal pain.) Genitourinary: positive: Other (Watson discontinued voiding spontaneously) Skin: positive: No symptoms Psychiatric: positive: Anxiety, Agitation - Other Other Information/Narrative: Diagnostic laparoscopy, laparoscopic anterior resection, laparoscopic splenic flexure mobilization, laparoscopic adhesio lysis, primary open umbilical hernia repair, laparoscopic loop ileostomy, primary colorectal anastomosis EEA double stapled. Objective - Patient Data Vital Signs: Vital Signs x48h Temp Pulse Pulse Resp BP Pulse Ox 01/31/20 11:30 36.8 C 65 20 100 01/31/20 08:05 36.8 C 65 20 122/77 97 Intake & Output: Intake and Output Totals x24h 01/29/20 01/30/20 01/31/20 23:59 23:59 23:59 Intake Total 2626.667 2000 2310.826 Output Total 2029 1520 Balance 2626.667 -30 790.826 - Lab Results Lab Results: 01/31/20 04:50 01/31/20 04:50 Other Lab Results: Lab Results x24hrs 01/31/20 01/31/20 01/31/20 Range/Units 08:15 04:50 04:50 WBC (4.8-10.8) x10^3/uL RBC (4.20-5.40) 10^6/uL Hgb (12.0-16.0) g/dL Hct (37.0-47.0) % MCV (81.0-99.0) fL MCH (27.0-31.0) pg MCHC (32.0-36.0) g/dL RDW (12.0-15.0) % Plt Count (130-450) 10^3/uL MPV (7.9-10.8) fL Neut # (Auto) (1.5-6.6) 10^3/uL Lymph # (Auto) (1.5-3.5) 10^3/uL Nance # (Auto) (0.0-1.0) 10^3/uL Eos # (Auto) (0.0-0.7) 10^3/uL Baso # (Auto) (0.0-0.1) 10^3/uL Absolute Nucleated RBC x10^3/uL Nucleated RBC % /100WBC Sodium (135-145) mmol/L Potassium (3.5-5.0) mmol/L Chloride (101-111) mmol/L Carbon Dioxide (21-32) mmol/L Anion Gap (6-13) BUN (6-20) mg/dL Creatinine (0.4-1.0) mg/dL Estimated GFR (MDRD) (>89) Glucose (70-100) mg/dL Calcium (8.5-10.3) mg/dL Phosphorus 3.1 (2.5-4.6) mg/dL Magnesium 1.8 (1.7-2.8) mg/dL Total Bilirubin (0.2-1.0) mg/dL AST (10-42) IU/L ALT (10-60) IU/L Alkaline Phosphatase (42-121) IU/L Total Protein (6.7-8.2) g/dL Albumin (3.2-5.5) g/dL Globulin (2.1-4.2) g/dL Albumin/Globulin Ratio (1.0-2.2) Vitamin B12 857 (180-914) pg/mL Ur Specific [place] 1.015 (1.002-1.030) Urine HCG, Qual NEGATIVE Coronavirus (PCR) 01/31/20 01/31/20 01/28/20 Range/Units 04:50 04:50 20:03 WBC 11.2 H (4.8-10.8) x10^3/uL RBC 3.95 L (4.20-5.40) 10^6/uL Hgb 13.6 (12.0-16.0) g/dL Hct 39.4 (37.0-47.0) % MCV 99.7 H (81.0-99.0) fL MCH 34.4 H (27.0-31.0) pg MCHC 34.5 (32.0-36.0) g/dL RDW 11.9 L (12.0-15.0) % Plt Count 282 (130-450) 10^3/uL MPV 9.1 (7.9-10.8) fL Neut # (Auto) 8.3 H (1.5-6.6) 10^3/uL Lymph # (Auto) 1.9 (1.5-3.5) 10^3/uL Nance # (Auto) 0.9 (0.0-1.0) 10^3/uL Eos # (Auto) 0.0 (0.0-0.7) 10^3/uL Baso # (Auto) 0.0 (0.0-0.1) 10^3/uL Absolute Nucleated RBC 0.00 x10^3/uL Nucleated RBC % 0.0 /100WBC Sodium 134 L (135-145) mmol/L Potassium 3.4 L (3.5-5.0) mmol/L Chloride 103 (101-111) mmol/L Carbon Dioxide 23 (21-32) mmol/L Anion Gap 8.0 (6-13) BUN < 5 L (6-20) mg/dL Creatinine 0.5 (0.4-1.0) mg/dL Estimated GFR (MDRD) 131 (>89) Glucose 146 H (70-100) mg/dL Calcium 8.6 (8.5-10.3) mg/dL Phosphorus (2.5-4.6) mg/dL Magnesium (1.7-2.8) mg/dL Total Bilirubin 0.4 (0.2-1.0) mg/dL AST 14 (10-42) IU/L ALT 12 (10-60) IU/L Alkaline Phosphatase 51 (42-121) IU/L Total Protein 6.3 L (6.7-8.2) g/dL Albumin 2.9 L (3.2-5.5) g/dL Globulin 3.4 (2.1-4.2) g/dL Albumin/Globulin Ratio 0.9 L (1.0-2.2) Vitamin B12 (180-914) pg/mL Ur Specific [place] (1.002-1.030) Urine HCG, Qual Coronavirus (PCR) NEGATIVE - Current Medications Current Medications: Current Medications Generic Name Dose Route Start Last Admin Trade Name Freq PRN Reason Stop Dose Admin Diphenhydramine HCl 25 mg 01/29/20 18:58 01/31/20 02:43 Benadryl PO 25 mg Q4HR PRN Administration Allergy Symptoms Piperacillin Sod/Tazobactam 100 mls @ 25 mls/hr 01/27/20 18:00 01/31/20 10:56 Sod 3.375 gm/ Sodium Chloride IV 25 mls/hr Q8H DEIS Administration Potassium Chloride/Dextrose/Sod Cl 1,000 mls @ 83.333 mls/hr 01/30/20 12:00 01/31/20 12:32 D5.45ns W/20 Meq Kcl IV 83.333 mls/hr .Q12H DESI Administration Morphine Sulfate 2 mg 01/27/20 16:11 01/31/20 05:28 Morphine (Carpuject) IVP 2 mg Q2HR PRN Administration Pain 8 to 10 Multivitamins 1 tab 01/29/20 09:00 01/31/20 08:08 Theragran PO 1 tab DAILY DESI Administration Ondansetron HCl 4 mg 01/30/20 11:44 01/31/20 08:08 Zofran Inj IVP 4 mg Q6HR PRN Administration Nausea / Vomiting Oxycodone HCl 5 mg 01/27/20 16:11 01/31/20 08:08 Roxicodone PO 5 mg Q4HR PRN Administration Pain 5 to 7 Pantoprazole Sodium 40 mg 01/31/20 07:00 01/31/20 06:21 Protonix PO 40 mg QDAC DESI Administration Promethazine HCl 25 mg 01/28/20 18:13 01/31/20 12:45 Phenergan PO 25 mg Q6H PRN Administration Nausea / Vomiting Sodium Chloride 10 ml 01/27/20 16:11 01/31/20 05:28 Normal Saline Flush 0.9% IVP 10 ml PRN PRN Administration NEEDED PER PROVIDER ORDERS Sodium Chloride 10 ml 01/27/20 17:00 01/31/20 08:09 Normal Saline Flush 0.9% IVP 10 ml 0100,0900,1700 DESI Administration Sumatriptan Succinate 100 mg 01/28/20 18:27 01/29/20 07:01 Imitrex PO 100 mg Q2H PRN Administration HEADACHE - Physical Exam Wound/Incisions: positive: Healing well, Dressing dry and intact, Other (Stoma pink and productive of stool with bowel/stoma bolster intact.) General Appearance: positive: No acute distress, Mild distress Eyes Bilateral: positive: Normal inspection, PERRL, EOMI Neck: positive: Nml inspection Respiratory: positive: Chest non-tender Cardiovascular: positive: Regular rate & rhythm Abdomen: positive: Other (Soft nondistended, appropriately tender to palpation, no rebound no guarding. Dressings intact. Will drain with serosanguineous output suprapubic. Stoma pink and productive of stool.) Impression/Plan - Problem List Problem List: Patient is postoperative day #1 status post listed procedure. Diagnostic laparoscopy, laparoscopic anterior resection, laparoscopic splenic flexure mobilization, laparoscopic adhesio lysis, primary open umbilical hernia repair, laparoscopic loop ileostomy, primary colorectal anastomosis EEA double stapled. Refractory diverticulitis complicated by stricture, multiple polyps noted on colonoscopy. Primary anastomosis following resection with proximal diversion through loop ileostomy. Doing well postoperatively with positive bowel function. Plan going forward is as follows: 1. Continue IV fluids, advance diet as tolerated, GI prophylaxis, will disco ntinue probiotics given the colon is diverted, will discontinue bowel regimen absent continuity. 2. Opiate sparing analgesia to include Robaxin, Toradol, Lyrica, acetaminophen, will defer Celebrex given currently receiving DVT prophylaxis with heparin subcu together with Toradol for analgesia. 3. Continue antibiotics in the setting of active diverticulitis, will transition to oral to complete a 10-day course. 4. Replete electrolytes follow daily out of bed with ambulation. 5. DVT ppx. Appreciate hospitalist service care to date. Will assume care at this time.
[2020-01-31] MEDS: KETOROLAC 15 MG/ML VIAL IVP SCH ×2 (13:54→17:07)
[2020-01-31] MEDS: methocarbamoL 500 MG TABLET PO SCH ×2 (13:54→17:06)
[2020-01-31] MEDS: PREGABALIN 100 MG CAPSULE PO SCH ×2 (14:32→20:57)
[2020-01-31] MEDS: POTASSIUM CHLOR 10 MEQ/100 ML 10 MEQ/100 ML BAG IV SCH ×3 (14:33→16:46)
[2020-01-31] MEDS: HEPARIN 5,000 UNIT/ML VIAL SUBQ SCH (20:58)
[2020-02-01] MEDS: methocarbamoL 500 MG TABLET PO SCH ×4 (00:02→17:44)
[2020-02-01] MEDS: KETOROLAC 15 MG/ML VIAL IVP SCH ×4 (00:02→17:44)
[2020-02-01] MEDS: D5.45NS W/20 MEQ KCL 1,000 ML IV SCH ×3 (00:10→21:37)
[2020-02-01] MEDS: SODIUM CHLORIDE FLUSH 0.9% 10 ML SYRINGE IVP SCH ×3 (02:02→17:36)
[2020-02-01] MEDS: PIPERACILLIN/TAZOBACTAM 3.375 GM in SODIUM CHLORIDE 0.9% MINIBAG 100 ML IV SCH ×3 (02:12→17:44)
[2020-02-01] MEDS: PANTOPRAZOLE 40 MG TABLET PO SCH (06:11)
[2020-02-01] MEDS: SODIUM CHLORIDE FLUSH 0.9% 10 ML SYRINGE IVP PRN (06:12)
[2020-02-01] MEDS: HEPARIN 5,000 UNIT/ML VIAL SUBQ SCH ×2 (09:03→21:28)
[2020-02-01] MEDS: PREGABALIN 100 MG CAPSULE PO SCH ×2 (09:04→21:26)
[2020-02-01] MEDS: MULTIVITAMIN TABLET PO SCH (09:04)
[2020-02-01] MEDS ORDERED: diazePAM 5 MG TABLET PO PRN (14:44)
--- NOTE | 2020-02-01 14:46 | PROVIDER PROGRESS NOTE ---
Subjective - General Admit Date: 01/29/20 Procedure Date: 01/30/20 (Patient admitted on January 25, consulted on by Surgery on SundayJanuary 26, seen by me January 27. Colonoscopy performed on January 28. R esection January 29.) Post Op Days: 2 Procedure Performed: Diagnostic laparoscopy, laparoscopic anterior resection, for diverticulitis - Review of Systems Wound/Incisions: positive: Healing well, Dressing dry and intact, Other (Stoma pink and productive of stool with bowel/stoma bolster intact.) Drain Type: Will drain General: positive: No symptoms (Overall feeling much better), Other (Postoperative pain) HEENT: positive: No symptoms Pulmonary: positive: No symptoms Cardiovascular: positive: No symptoms Gastrointestinal: positive: Abdominal pain, Other. negative: Nausea, Vomiting, Diarrhea (Denies nausea denies vomiting. Denies flatus or bowel movement per anus. Multiple bowel movements per stoma. Tolerating diet. Postoperative incisional abdominal pain.) Genitourinary: positive: Other (Watson discontinued voiding spontaneously) Skin: positive: No symptoms Psychiatric: positive: Anxiety, Agitation - Other Other Information/Narrative: Anxious about stoma management. Objective - Patient Data Vital Signs: Vital Signs x48h Temp Pulse Resp BP Pulse Ox 02/01/20 07:35 36.8 C 67 18 123/89 H 97 Intake & Output: Intake and Output Totals x24h 01/30/20 01/31/20 02/01/20 23:59 23:59 23:59 Intake Total 1999 3650.826 2567.774 Output Total 2029 3455 1440 Balance -30 235.949 7104.774 - Lab Results Lab Results: 01/31/20 04:50 01/31/20 04:50 - Current Medications Current Medications: Current Medications Generic Name Dose Route Start Last Admin Trade Name Freq PRN Reason Stop Dose Admin Diphenhydramine HCl 25 mg 01/29/20 18:58 01/31/20 02:43 Benadryl PO 25 mg Q4HR PRN Administration Allergy Symptoms Heparin Sodium (Porcine) 5,000 unit 01/31/20 21:00 02/01/20 09:03 SUBQ 5,000 unit BID DESI Administration Piperacillin Sod/Tazobactam 100 mls @ 25 mls/hr 01/27/20 18:00 02/01/20 13:33 Sod 3.375 gm/ Sodium Chloride IV Infused Q8H DESI Infusion Potassium Chloride/Dextrose/Sod Cl 1,000 mls @ 83.333 mls/hr 01/30/20 12:00 02/01/20 10:42 D5.45ns W/20 Meq Kcl IV 83.333 mls/hr .Q12H DESI Administration Ketorolac Tromethamine 15 mg 01/31/20 14:00 02/01/20 11:38 Toradol Inj (15mg) IVP 02/05/20 13:59 15 mg Q6HR DESI Administration Methocarbamol 500 mg 01/31/20 14:00 02/01/20 11:38 Robaxin PO 500 mg Q6HR DESI Administration Morphine Sulfate 2 mg 01/27/20 16:11 01/31/20 12:45 Morphine (Carpuject) IVP 2 mg Q2HR PRN Administration Pain 8 to 10 Multivitamins 1 tab 01/29/20 09:00 02/01/20 09:04 Theragran PO 1 tab DAILY DESI Administration Ondansetron HCl 4 mg 01/30/20 11:44 01/31/20 08:08 Zofran Inj IVP 4 mg Q6HR PRN Administration Nausea / Vomiting Oxycodone HCl 5 mg 01/27/20 16:11 01/31/20 08:08 Roxicodone PO 5 mg Q4HR PRN Administration Pain 5 to 7 Pantoprazole Sodium 40 mg 01/31/20 07:00 02/01/20 06:11 Protonix PO 40 mg QDAC DESI Administration Pregabalin 100 mg 01/31/20 14:00 02/01/20 09:04 Lyrica PO 100 mg BID DESI Administration Promethazine HCl 25 mg 01/28/20 18:13 01/31/20 12:45 Phenergan PO 25 mg Q6H PRN Administration Nausea / Vomiting Sodium Chloride 10 ml 01/27/20 16:11 02/01/20 06:12 Normal Saline Flush 0.9% IVP 10 ml PRN PRN Administration NEEDED PER PROVIDER ORDERS Sodium Chloride 10 ml 01/27/20 17:00 02/01/20 09:05 Normal Saline Flush 0.9% IVP Not Given 0100,0900,1700 [facility] Sumatriptan Succinate 100 mg 01/28/20 18:27 01/29/20 07:01 Imitrex PO 100 mg Q2H PRN Administration HEADACHE - Physical Exam Wound/Incisions: positive: Healing well, Dressing dry and intact (Clean dry and intact), No drainage, Other General Appearance: positive: No acute distress Eyes Bilateral: positive: Normal inspection, PERRL, EOMI ENT: positive: ENT inspection nml Neck: positive: Nml inspection Respiratory: positive: Chest non-tender, No respiratory distress Cardiovascular: positive: Regular rate & rhythm Abdomen: positive: Other (Appropriately tender, nondistended, no rebound no guarding,. Dressings intact clean and dry. Stoma pink and productive. Bolster in place. Bilious output from ileostomy, loop.) Skin: positive: Color nml Extremities: positive: Non-tender, Full ROM Neurologic/Psychiatric: positive: Oriented x3, CN's nml (2-12) Impression/Plan - Problem List Problem List: 49-year-old female presenting with complicated diverticulitis with associated stricture, refractory to maximal medical therapy. She presents with no significant comorbid states. Leukocytosis resolving. Post operative day #3 status post laparoscopic colon resection, primary anastomosis, proximal diverting loop ileostomy. Plan going forward is as follows: 1. GI: Advance diet, DC bowel regimen agents, watch ileostomy output. 2. Electrolytes: Replete potassium. Continue to trend labs. Will need outpatient electrolytes followed as well to avoid dehydration. 3. Wound care: We will schedule the patient for outpatient wound and ostomy care, patient will likely be homebound for the first week or 2. We will plan on removing ileostomy bolster. We will plan on removing SARITHA drain prior to discharge as well. 4. Infectious disease: We will transition to Augmentin at the time of discharge.
--- NOTE | 2020-02-01 16:58 | Discharge Plan ---
Discharge Plan Problem Reviewed?: Yes Disposition: 06 Home Health Service Condition: Fair Prescriptions: oxyCODONE [Roxicodone] 5 mg PO Q4HR PRN #24 tablet PRN Reason: Pain 5 to 7 methocarbamoL [Robaxin] 500 mg PO Q6HR 14 Days #30 tablet Acetaminophen [Arthritis Pain Reliever] 650 mg PO Q6H PRN #60 tablet.er PRN Reason: Pain Amox/Clav 875/125 [Augmentin] 1 each PO Q12H 10 Days #20 tablet diazePAM [Valium] 5 mg PO BID PRN 14 Days #20 tablet PRN Reason: Anxiety Diphenoxylate/Atropine [Lomotil] 1 each PO Q6H PRN 7 Days #42 tablet PRN Reason: Diarrhea Pregabalin [Lyrica] 100 mg PO BID 14 Days #28 capsule Diet: Soft Activity Restrictions: Wt Bearing as Tolerated Shower Restrictions: Yes Driving Restrictions: Yes Weight Bearing: Other Instruction Topics: Ileostomy Stoma Care, Ileostomy Change Pouch, Ileostomy, Ileostomy Dc, Ostomy Pouch Change Dc, Ileostomy Nutrition Manage Health Concerns: DISCHARGE INSTRUCTIONS TEMPLATE: Home care to help manage ileostomy for pouching. No heavy lifting, pushing, or pulling. Stairs are allowed, no strenuous/exertional activities. 5-10lbs weight carrying limit (i.e. gallon of milk) If provided, abdominal binder while out of bed and while ambulating. Call or proceed to clinic/ER for fevers, severe pain, nausea, vomiting, inability to pass flatus/stool, bleeding, wound redness/discharge, weakness, excessively loose stool/diarrhea, or for any other reasonably worrisome symptom or concern. Soft diet, no raw vegetables, avoid high fiber foods. Patient to have weekly CMP to evaluate fluid status. For signs of dehydration patient to follow-up with primary care and consider fluid infusions given ileostomy. Patient also supplied with Lomotil for slowing agent should ileostomy output exceed 1.5 L/day. May shower, no submersive bathing. Follow up in clinic in 2-4 weeks for wound check and staple removal. No driving while taking narcotic pain medications. Follow up with primary care provider and/or medical subspecialist following discharge as well. Plan of Treatment: DISCHARGE INSTRUCTIONS TEMPLATE: Home care to help manage ileostomy for pouching. No heavy lifting, pushing, or pulling. Stairs are allowed, no strenuous/exertional activities. 5-10lbs weight carrying limit (i.e. gallon of milk) If provided, abdominal binder while out of bed and while ambulating. Call or proceed to clinic/ER for fevers, severe pain, nausea, vomiting, inability to pass flatus/stool, bleeding, wound redness/discharge, weakness, excessively loose stool/diarrhea, or for any other reasonably worrisome symptom or concern. Soft diet, no raw vegetables, avoid high fiber foods. Patient to have weekly CMP to evaluate fluid status. For signs of dehydration patient to follow-up with primary care and consider fluid infusions given ileostomy. Patient also supplied with Lomotil for slowing agent should ileostomy output exceed 1.5 L/day. May shower, no submersive bathing. Follow up in clinic in 2-4 weeks for wound check and staple removal. No driving while taking narcotic pain medications. Follow up with primary care provider and/or medical subspecialist following discharge as well. Follow-Up Care: Home Health - RN No Smoking: If you smoke, Please STOP! Call for help.
[2020-02-01] MEDS: oxyCODONE 5 MG TABLET PO PRN (21:25)
[2020-02-02] MEDS: KETOROLAC 15 MG/ML VIAL IVP SCH ×3 (00:42→13:12)
[2020-02-02] MEDS: SODIUM CHLORIDE FLUSH 0.9% 10 ML SYRINGE IVP SCH ×2 (00:42→09:01)
[2020-02-02] MEDS: methocarbamoL 500 MG TABLET PO SCH ×3 (00:47→13:14)
[2020-02-02] MEDS: PIPERACILLIN/TAZOBACTAM 3.375 GM in SODIUM CHLORIDE 0.9% MINIBAG 100 ML IV SCH ×2 (02:11→09:00)
[2020-02-02 05:30] LABS: BASOPHILS # (AUTO) 0.1 10^3/uL (0.0-0.1); BASOPHILS % (AUTO) 0.7 %; EOSINOPHILS # (AUTO) 0.6 10^3/uL (0.0-0.7); EOSINOPHILS % (AUTO) 7.9 %; HGB - HEMOGLOBIN 12.7 g/dL (12.0-16.0); LYMPHOCYTES # (AUTO) 2.3 10^3/uL (1.5-3.5); LYMPHOCYTES % (AUTO) 32.7 %; MEAN CORPUSCULAR HEMOGLOBIN 34.9 pg (27.0-31.0); MEAN CORPUSCULAR HGB CONC 34.4 g/dL (32.0-36.0); MEAN CORPUSCULAR VOLUME 101.4 fL (81.0-99.0); MEAN PLATELET VOLUME 8.7 fL (7.9-10.8); MONOCYTES # (AUTO) 0.5 10^3/uL (0.0-1.0); MONOCYTES % (AUTO) 7.5 %; NEUTROPHILS # (AUTO) 3.6 10^3/uL (1.5-6.6); NEUTROPHILS % (AUTO) 50.8 %; PLT - PLATELET COUNT 260 10^3/uL (130-450); RED BLOOD COUNT 3.64 10^6/uL (4.20-5.40); RED CELL DISTRIBUTION WIDTH 12.1 % (12.0-15.0); WHITE BLOOD COUNT 7.1 x10^3/uL (4.8-10.8)
[2020-02-02 05:42] LABS: ALBUMIN 2.8 g/dL (3.2-5.5); ALBUMIN/GLOBULIN RATIO 0.8 (1.0-2.2); BILIRUBIN,TOTAL 0.4 mg/dL (0.2-1.0); CALCIUM 8.6 mg/dL (8.5-10.3); CREATININE 0.6 mg/dL (0.4-1.0); TOTAL PROTEIN 6.1 g/dL (6.7-8.2)
[2020-02-02] MEDS: PANTOPRAZOLE 40 MG TABLET PO SCH (06:08)
[2020-02-02] MEDS: SODIUM CHLORIDE FLUSH 0.9% 10 ML SYRINGE IVP PRN (06:08)
[2020-02-02 08:41] VITALS: BP 116/73
[2020-02-02] MEDS: MULTIVITAMIN TABLET PO SCH (08:59)
[2020-02-02] MEDS: PREGABALIN 100 MG CAPSULE PO SCH (08:59)
[2020-02-02] MEDS: HEPARIN 5,000 UNIT/ML VIAL SUBQ SCH (09:00)
[2020-02-02] MEDS: D5.45NS W/20 MEQ KCL 1,000 ML IV SCH (09:13)
[2020-02-02] MEDS: oxyCODONE 5 MG TABLET PO PRN (09:13)
--- NOTE | 2020-02-04 13:05 | DISCHARGE SUMMARY ---
"Discharge Summary Admit Date: 01/27/20 Discharge Date: 02/02/20 Discharging Provider: Nuvia Primary Care Provider: Noelle RICH Code Status: Attempt Resuscitation Condition at Discharge: Fair Discharge Disposition: Home Health Service - DIAGNOSES Admission Diagnoses: 1. Abdominal pain 2. Chronic diverticulitis 3. Failure of medical management 4. Sepsis, abdominal Discharge Diagnoses with Status of Each Condition: 1. Abdominal pain - resolved 2. Chronic diverticulitis - resolved 3. Failure of medical management - resolved 4. Sepsis, abdominal - resolved 5. Diverticular stricture - resected/resolved 6. status post resection with primary anastomosis and diverting loop ileostomy 7. Hypokalemia - resolved - HPI History of Present Illness: See electronic medical record. 49-year-old female with longstanding diverticular disease, 5 episodes within the last year for which required hospitalization. No prior colonoscopy given persistence of diverticulitis. Over the last 6 years near 10 episodes by report. Recent CAT scan with persistent inflammatory changes and no evidence of abscess or extraluminal air. She was consulted by surgery and recommended for colonoscopy. Colonoscopy showed diverticular stricture for which resection was indicated together with her refractory disease. She was managed with IV antibiotics following multiple outpatient courses of oral antibiosis. See hospital course for balance. - CONSULTS | PROCEDURES Consultations: Surgery Procedures: 1. Diagnostic laparoscopy 2. Laparoscopic splenic flexure mobilization 3. Laparoscopic anterior resection/low anterior resection involving the upper rectum at the sacral promontory 4. Primary anastomosis and and laparoscopic 5. Rigid proctosigmoidoscopy 6. Laparoscopic loop ileostomy 7. Laparoscopic adhesio lysis, extensive - HOSPITAL COURSE Hospital Course: Patient admitted with diverticulitis. Patient was evaluated by CT with imaging findings per above. Patient underwent endoscopy with findings per above under HPI; patient was noted for a sigmoid stricture which was absolute indication for operative intervention together with her refractory disease. Patient underwent operative intervention as listed in the electronic medical record. Tolerated pr ocedure well for which there was no complication. Patient was placed for diverting loop ileostomy following resection and primary anastomosis. Postoperatively the patient was managed for postoperative analgesia and resumption of bowel function. Patient had successfully passed trial of void. Tolerated oral intake without any complication. Denied nausea denied vomiting. Was advanced for diet without any complication. Was counseled that given evidence of active diverticulitis would recommend continued antibiotics for 2 weeks; patient was maintained on antibiotics during the hospital stay. Patient was discharged on oral antibiosis at the time of discharge. On the day of discharge patient was afebrile vital signs were stable. Abdomen soft nontender nondistended up appropriate tenderness to deep palpation. No rebound no guarding. Stoma bolster was removed on the day of discharge as was the Will drain which had minimal output. Patient was scheduled for weekly labs through her primary care and for home care visits. Discharge instructions given. Analgesia with oxycodone, Lyrica, Toradol provided at time of discharge. Patient plan for follow-up and will be notified of pathology once returned. - ALLERGIES Allergies/Adverse Reactions: Allergies Allergy/AdvReac Type Severity Reaction Status Date / Time amoxicillin [Amoxicillin] AdvReac Unknown Rash Verified 01/27/20 13:36 Penicillins AdvReac Unknown Rash Verified 01/27/20 13:36 - MEDICATIONS Home Medications: Ambulatory Orders Medication Instructions Recorded Confirmed Melatonin 6 mg PO QPM PRN 09/07/19 01/27/20 Multivitamin [Theragran] 1 each PO DAILY 09/07/19 01/27/20 Promethazine [Phenergan] 25 mg PO Q6H PRN 01/27/20 01/27/20 SUMAtriptan succinate [Sumatriptan 100 mg PO Q2H PRN MDD 200 mg 01/27/20 01/27/20 Succinate] Acetaminophen [Arthritis Pain 650 mg PO Q6H PRN #60 tablet.er 02/02/20 Reliever] Amox/Clav 875/125 [Augmentin] 1 each PO Q12H 10 Days #20 tablet 02/02/20 Diphenoxylate/Atropine [Lomotil] 1 each PO Q6H PRN 7 Days #42 tablet 02/02/20 Ketorolac [Toradol] 10 mg PO Q6H PRN 5 Days #20 tablet 02/02/20 Pregabalin [Lyrica] 100 mg PO BID 14 Days #28 capsule 02/02/20 diazePAM [Valium] 5 mg PO BID PRN 14 Days #20 tablet 02/02/20 methocarbamoL [Robaxin] 500 mg PO Q6HR 14 Days #30 tablet 02/02/20 oxyCODONE [Roxicodone] 5 mg PO Q4HR PRN #24 tablet 02/02/20 - PHYSICAL EXAM AT DISCHARGE General Appearance: positive: No acute distress Eyes Bilateral: positive: Normal inspection, PERRL, EOMI Neck: positive: Nml inspection Respiratory: positive: Chest non-tender, No respiratory distress Cardiovascular: positive: Regular rate & rhythm Abdomen: positive: Other Skin: positive: Color nml (See below) Extremities: positive: Full ROM Neurologic/Psychiatric: positive: Oriented x3, CN's nml (2-12) Physical Exam Other/Comments: Abdominal Exam: Inspection - Erythema none; Scars trocars well healed Auscultation -normoactive bowel sounds Palpation - Hernias none; Fluctuance none; Induration none; Scar N/A Ileostomy - Hernias none; Fluctuance none; Induration none; productive of stool and flatus - LABS Result Diagrams: 02/02/20 05:18 02/02/20 05:18 - SEPSIS Current Stage of Sepsis: Ruled out"
== END 2020-02-02 16:32 | disposition home health service (06) | DRG 331 ==
LOC: ED 13:33 → MS2 16:11 → OBSVTOIN 01-29 13:41
PROVIDERS: ADMIT Nurse Practitioner Gerontology; ATTEND Surgery
PROC: 0DBK8ZZ Excision of Ascending Colon, Via Natural or Artificial Opening Endoscopic (ICD-10-PCS; 2020-01-29)
PROC: 0DBN8ZZ Excision of Sigmoid Colon, Via Natural or Artificial Opening Endoscopic (ICD-10-PCS; 2020-01-29)
PROC: 0DBH8ZZ Excision of Cecum, Via Natural or Artificial Opening Endoscopic (ICD-10-PCS; 2020-01-29)
PROC: 0D1B4Z4 Bypass Ileum to Cutaneous, Percutaneous Endoscopic Approach (ICD-10-PCS; 2020-01-30)
PROC: 0DNN4ZZ Release Sigmoid Colon, Percutaneous Endoscopic Approach (ICD-10-PCS; 2020-01-30)
PROC: 0DTN4ZZ Resection of Sigmoid Colon, Percutaneous Endoscopic Approach (ICD-10-PCS; principal; 2020-01-30 07:30)
DX: K57.20 Diverticulitis of large intestine with perforation and abscess without bleeding (principal); E87.6 Hypokalemia; K66.0 Peritoneal adhesions (postprocedural) (postinfection); K42.9 Umbilical hernia without obstruction or gangrene; D12.2 Benign neoplasm of ascending colon; K63.5 Polyp of colon; Z72.89 Other problems related to lifestyle
CPT/HCPCS: 36415; 45380; 45381; 74177; 76775; 80048; 80053; 81001; 81025; 82607; 83690; 83735; 84100; 85025; 85610; 87635; 96361; 96365; 96366; 96372; 96375; 96376; 99284; 99285; A9270; G0378; J0131; J1170; J1650; J2795; J7120; Q0169; Q9967; 81003; 81599; 87086

== ENCOUNTER 2020-02-16 11:15 | Outpatient (CLI) | payer OTHER ==
[2020-02-16 16:50] LABS: BASOPHILS # (AUTO) 0.1 10^3/uL (0.0-0.1); BASOPHILS % (AUTO) 0.8 %; EOSINOPHILS # (AUTO) 0.4 10^3/uL (0.0-0.7); EOSINOPHILS % (AUTO) 6.6 %; HGB - HEMOGLOBIN 15.1 g/dL (12.0-16.0); LYMPHOCYTES # (AUTO) 1.5 10^3/uL (1.5-3.5); LYMPHOCYTES % (AUTO) 22.4 %; MEAN CORPUSCULAR HEMOGLOBIN 34.7 pg (27.0-31.0); MEAN CORPUSCULAR VOLUME 102.1 fL (81.0-99.0); MEAN PLATELET VOLUME 10.1 fL (7.9-10.8); MONOCYTES # (AUTO) 0.6 10^3/uL (0.0-1.0); MONOCYTES % (AUTO) 8.4 %; NEUTROPHILS % (AUTO) 61.3 %; PLT - PLATELET COUNT 330 10^3/uL (130-450); RED BLOOD COUNT 4.35 10^6/uL (4.20-5.40); RED CELL DISTRIBUTION WIDTH 12.4 % (12.0-15.0); WHITE BLOOD COUNT 6.5 x10^3/uL (4.8-10.8)
== END 2020-02-16 23:59 | disposition home or self-care (01) ==
LOC: LAB.R 11:15
PROVIDERS: ATTEND Surgery
DX: Z48.815 Encounter for surgical aftercare following surgery on the digestive system (principal); K57.92 Diverticulitis of intestine, part unspecified, without perforation or abscess without bleeding
CPT/HCPCS: 80053; 85025

== ENCOUNTER 2020-03-04 11:06 | Outpatient (CLI) | payer OTHER, BC ==
[2020-03-04 11:30] LABS: ALBUMIN 3.8 g/dL (3.2-5.5); ALBUMIN/GLOBULIN RATIO 0.9 (1.0-2.2); BILIRUBIN,TOTAL 1.2 mg/dL (0.2-1.0); CALCIUM 9.3 mg/dL (8.5-10.3); CREATININE 0.6 mg/dL (0.4-1.0); TOTAL PROTEIN 7.9 g/dL (6.7-8.2)
== END 2020-03-04 11:07 | disposition home or self-care (01) ==
LOC: LAB 11:06
PROVIDERS: ATTEND Surgery
DX: Z93.3 Colostomy status (principal)
CPT/HCPCS: 36415; 80053

== ENCOUNTER 2020-03-26 07:30 | Inpatient (IN) | payer OTHER ==
[2020-04-02] MEDS ORDERED: CIPROFLOXACIN 400 MG/200 ML 400 MG/200 ML BAG IV ONE (06:20)
[2020-04-02] MEDS ORDERED: metroNIDAZOLE 500 MG/100 ML 500 MG/100 ML BAG ONE (06:20)
[2020-04-02] MEDS ORDERED: LACTATED RINGERS 1,000 ML IV ONE ×2 (06:22→10:15)
--- NOTE | 2020-04-02 07:07 | ANESTHESIA ---
Pre-Anesthesia VS, & Labs - Diagnosis presence of ileostomy, diverticulitis - Procedure ileostomy closure Vital Signs: Temp Pulse Resp BP Pulse Ox 37.1 C 69 16 116/85 H 96 04/02/20 06:46 04/02/20 06:46 04/02/20 06:46 04/02/20 06:46 04/02/20 06:46 Height 8 ft 10 in Weight (kg) 68 kg Body Mass Index 23.7 - NPO >8 hours - Is Patient ?: No - Lab Results Lab results reviewed: Yes Home Medications and Allergies Home Medications: Ambulatory Orders Multivitamin 1 tab PO DAILY 03/19/20 Trazodone HCl 25 - 100 mg PO QPM PRN 03/19/20 Multivitamin 1 tab PO DAILY 03/19/20 Trazodone HCl 25 - 100 mg PO QPM PRN 03/19/20 Allergies/Adverse Reactions: Allergies Allergy/AdvReac Type Severity Reaction Status Date / Time amoxicillin [Amoxicillin] AdvReac Unknown Anaphylaxis Verified 04/02/20 07:02 Penicillins AdvReac Unknown Anaphylaxis Verified 04/02/20 07:02 Anes History & Medical History - Anesthetic History Anesthesia Complications: reports: Post-Operative Nausea/Vomiting Family history of Anesthesia Complications: Denies Family history of Malignant Hyperthermia: Denies - Medical History Cardiovascular: reports: None Pulmonary: reports: None Gastrointestinal: reports: Diverticulitis Urinary: reports: Kidney stones Neuro: reports: Migraines Musculoskeletal: reports: None Endocrine/Autoimmune: reports: None Blood Disorders: reports: Anemia Skin: reports: Herpes zoster Smoking Status: Never smoker - Surgical History General: Bowel surgery, Colonoscopy Gynecologic: section, Tubal ligation Orthopedic: Arthroscopic surgery Dermatologic: Skin grafts Exam General: Alert, Oriented x3, Cooperative, No acute distress Dental: WNL Mouth Openin Fingerbreadth Neck Mobility: Normal Mallampati classification: II Respiratory: Lungs clear, Normal breath sounds, No respiratory distress, No accessory muscle use Cardiovascular: Regular rate, Normal S1, Normal S2, No murmurs Plan Anesthesia Type: General, Transverse Abdominis Plane (TAP) Block Regional Block: Per Surgeon's request for Post Op pain control Consent for Procedure(s) Verified and Reviewed: Yes Code Status: Attempt Resuscitation ASA classification: 2-Mild systemic disease Is this case an emergency?: No
[2020-04-02] MEDS ORDERED: MORPHINE 2 MG/ML CARPUJECT IVP PRN (07:20)
[2020-04-02] MEDS ORDERED: ePHEDrine 50 MG/ML VIAL IVP PRN (07:20)
[2020-04-02] MEDS ORDERED: METOCLOPRAMIDE 10 MG/2 ML VIAL IVP PRN (07:20)
[2020-04-02] MEDS ORDERED: ATROPINE ABBOJECT 1 MG/10 ML SYRINGE IVP PRN (07:20)
[2020-04-02] MEDS ORDERED: ONDANSETRON 4 MG/2 ML VIAL IVP PRN (07:20)
[2020-04-02] MEDS ORDERED: HYDROmorphone 0.5 MG/0.5 ML SYRINGE IVP PRN (07:20)
[2020-04-02] MEDS ORDERED: NALOXONE 0.4 MG/ML VIAL IVP PRN (07:20)
[2020-04-02] MEDS ORDERED: fentaNYL 100 MCG/2 ML VIAL IVP PRN (07:20)
[2020-04-02] MEDS ORDERED: SCOPOLAMINE PATCH TOP ONE ×2 (07:24→08:00)
[2020-04-02] MEDS ORDERED: LACTATED RINGERS 1,000 ML IV SCH (08:00)
[2020-04-02] MEDS ORDERED: fentaNYL 100 MCG/2 ML VIAL IVP ONE (08:25)
[2020-04-02] MEDS ORDERED: GLYCOPYRROLATE 1 MG/5 ML VIAL IVP ONE (08:25)
[2020-04-02] MEDS ORDERED: NEOSTIGMINE 1 MG/1 ML 10 ML MDV IVP ONE (08:25)
[2020-04-02] MEDS ORDERED: KETAMINE 500 MG/10 ML VIAL IVP ONE (08:25)
[2020-04-02] MEDS ORDERED: PROPOFOL 200 MG/20 ML VIAL IVP ONE (08:25)
[2020-04-02] MEDS ORDERED: ROCURONIUM 50 MG/5 ML VIAL IVP ONE (08:25)
[2020-04-02] MEDS ORDERED: ACETAMINOPHEN 1,000 MG/100 ML 100 ML IV ONE (08:25)
[2020-04-02] MEDS ORDERED: ONDANSETRON 4 MG/2 ML VIAL IVP ONE (08:25)
[2020-04-02] MEDS ORDERED: KETOROLAC 30 MG/ML VIAL IVP ONE (08:25)
[2020-04-02] MEDS ORDERED: HYDROmorphone 1 MG/ML CARPUJECT IVP ONE (08:25)
[2020-04-02] MEDS ORDERED: DEXAMETHASONE 4 MG/ML VIAL IVP ONE (08:25)
[2020-04-02] MEDS ORDERED: BUPIVACAINE 0.25% PF 30 ML VIAL ONE (09:36)
[2020-04-02] MEDS ORDERED: BUPIVACAINE 0.25% PF 30 ML VIAL SUBQ ONE ×2 (09:38→11:09)
--- NOTE | 2020-04-02 11:49 | OPERATIVE REPORT ---
Operative Report - General Admit Date: 04/02/20 Procedure Date: 04/02/20 Planned Procedure: 1. Ileostomy takedown 2. Small bowel resection 3. Jbqt-[id number]-[id number] functional end-to-end antiperistaltic anastomosis stapled with primary enterotomy closure to layers 4. Parastomal hernia repair 5. Drain placement 6. Tap block Pre-Op Diagnosis: Diverticulitis, low anterior resection, proximal diversion with ileostomy Procedure Performed: 1. Ileostomy takedown 2. Small bowel resection 3. Coyu-jj-vdoe functional end-to-end antiperistaltic anastomosis stapled with primary enterotomy closure to layers 4. Parastomal hernia repair 5. Drain placement 6. Tap block 7. Adhesio lysis Post Op Diagnosis: Same, adhesions - Procedure Note Primary Surgeon: KIDD (Angelos) Anesthesia Provider: Vasquez Anesthesia Technique: Combo spinal/epidural, General ET tube, Regional block Pathology: 1. ileostomy 2. Hernia sac Estimated Blood Loss (mL): 25 Drain/Tube Type: Will drain Indications: 49-year-old female with refractory diverticulitis failing maximal medical therapy who was admitted in January with recurrent episode. Persistent pain. Associated stricture which was ultimately traversable. Status post resection however given active inflammatory changes performed proximal diversion with loop ileostomy in setting of primary anastomosis. Has done exceedingly well. Anastomosis was evaluated endoscopically with no evidence of any compromise; stenosis addressed with pneumatic dilatation traversable endoscopically thereafter. Eager for ileostomy takedown. Findings: 1. Adhesions 2. Viable ileostomy status post takedown 3. Patent, widely, peristaltic, viable yiop-ap-[id number] functional end-to-end stapled antiperistaltic anastomosis 4. Hemostatic 5. Intraluminal staple line addressed with suture ligature for bleeding without any complication, hemostatic 6. Primary closure in layers posterior fascia then anterior fascia. Complications: None - Other Other Information/Narrative: TAKEDOWN OF DIVERTING LOOP ILEOSTOMY: The patient was taken to the operating room, placed supine on the operating table (or in Amilcar stirrups if endoscopy performed), placed for bilateral lower extremity serial compression devices and induced for general endotracheal anesthesia. Please note the patient had undergone colonoscopy per anus the day prior. This necessitated interoperative idauoeb-oer-rozbg pneumatic dilatation to 15 mm with no complication. This was traversed with no concerns for any residual pathology anastomosis was intact. Once this was completed, ostomy appliance was taken off the abdomen and using a Vicryl suture, the proximal limb of diverting loop ileostomy was ligated in order to prevent intraoperative spillage. A Watson catheter was placed. The abdomen was prepped and draped in the usual sterile fashion and perioperative antibiotics were given within an hour of surgical incision with 1 g of Invanz. If rigid endoscopy was performed, findings are dictated above and also listed elsewhere in this operative note. If diagnostic laparoscopy was performed, findings are listed above and intervention is dictated as well if adhesiolysis was performed elsewhere in this report. Surrounding the diverting loop ileostomy using a scalpel, the mucocutaneous junction was incised outside of the mucus border and this was taken down through to the superficial subcutaneous fat with Bovie electrocautery. Once this was completed, using sharp dissection and Bovie electrocautery the diverting loop ileostomy was dissected free from the surrounding adhesions again sharply with scalpel & Metzenbaum scissors as well as Bovie electrocautery dissection, using great care to avoid injury to the small intestine. This was taken down through to the level of fascia. This was incised and ultimately the ileostomy was freed from its surrounding attachments and any adhesions were appropriately lysed. Additional adhesiolysis was necessary for appropriate prolapse of the diverting loop ileostomy and after this was completed, we chose points of transection and after dividing and ligating the intervening mesentery, the small intestine was divided using a linear cutting stapler with a triple staple line. The ileostomy was sent for permanent pathology. Once this was completed, Allis clamps were placed along the antimesenteric staple lines of both ends. These were incised and divided using curved Tapia scissors and thereafter limbs of the linear cutting stapler were placed through both enterotomies and the faqw-pt-rggj anastomosis was created. There was no bleeding, and after the stapler was fired, two seromuscular crotch stitches were placed in order to relieve any tension. Thereafter, the enterotomies were closed in two layers, first with a Juan running suture, followed by interrupted Lembert stitches of 2-0 Vicryl. The anastomosis was widely patent, intact, with no ischemic changes noted. Please note that on evaluating intraluminally there was staple line bleeding this was dressed with several interrupted sutures of 3-0 Vicryl resulting in hemostasis. There was no concerns for any compromise of bowel viability in this bbts-sn-paym functional end-to-end stapled isoperistaltic anastomosis for which enterotomies were primary closed in layers first with a running canal and thereafter with interrupted Lembert's of 3-0 Vicryl. I was physically present for the entirety of the surgical procedure as indicated above. Please note that upon completing abdomen was extensively irrigated and aspirated clear. A 19 Will was left after omentum was placed overlying the anastomosis which was checked without any evidence of leak on milking the bowel beyond, with a widely patent anastomosis that was viable and peristaltic. We thereafter closed the wound in layers which was again historically notable for a parastomal hernia. Parastomal hernia sac was sent for permanent pathology. We instilled the wound with additional 30 cc of quarter percent Marcaine. This was as per anesthesia allowance and request. The posterior fascia was reapproximated with a running 0 Vicryl. Thereafter we closed the fascia in running fashion bidirectionally with #1 PDS. There was no concern for any compromise of underlying hollow viscus or other injury. We irrigated the skin and subcutaneous tissue please note that the drain/Will, was exited out of the suprapubic port historically from the patient's prior diagnostic laparoscopy and laparoscopic low anterior resection. At this time we performed a pursestring of the deep dermal skin at the ileostomy site which was again irrigated and aspirated clear. This was packed with quarter inch packing strip and topped with dry sterile gauze dressing. The drain was secured with 2-0 nylon. Patient tolerated procedure well which was no complication all counts were sponges needles and instruments were correct at the conclusion of operative case. I was present for the entirety of this operative intervention.
--- NOTE | 2020-04-02 12:22 | ANESTHESIA POST OP EVALUATION ---
Anesthesia Post Eval - Post Anesthesia Eval Vitals: Last Vital Signs Temp 36.5 C 04/02/20 12:05 Pulse 71 04/02/20 12:05 Resp 11 L 04/02/20 12:05 BP 133/91 H 04/02/20 12:05 Pulse Ox 98 04/02/20 12:05 CV Function Including HR & BP: positive: Stable Pain Control: positive: Satisfactory Nausea & Vomiting: positive: Negative Mental Status: positive: Baseline Respiratory Status: Airway Patent Hydration Status: Satisfactory Anesthesia Complications: positive: None
[2020-04-02] MEDS: LACTATED RINGERS 1,000 ML IV SCH ×2 (13:08→21:35)
--- NOTE | 2020-04-02 14:50 | PHARMACY PROGRESS NOTE ---
- Best Possible Medication History Admit Date and Time: 04/02/20 0631 Processed by: Pharmacy Medication History completed: Yes Patient Interview: Completed Secondary Source(s): Pharmacy records, Insurance records As the person ultimately responsible for medication therapy, providers are able to order a medication from an existing home medication list in [facility] via the "Reconcile Routine" prior to Confirmation of that medication by instructional support assistant. Such practice is discouraged except when the physician, in their clinical judgment, deems that a medical need exists for a medication without regard to previous use.
[2020-04-02] MEDS: ONDANSETRON 4 MG/2 ML VIAL IVP PRN (15:30)
[2020-04-02] MEDS: ACETAMINOPHEN 1,000 MG/100 ML 100 ML IV SCH ×2 (15:31→21:08)
[2020-04-02] MEDS: HYDROmorphone 0.5 MG/0.5 ML SYRINGE IVP PRN ×2 (17:15→22:30)
[2020-04-02] MEDS: hydrOXYzine PAMOATE 25 MG CAPSULE PO PRN (19:40)
[2020-04-02] MEDS: GABAPENTIN 100 MG CAPSULE PO SCH ×2 (19:40→20:24)
[2020-04-02] MEDS: traZODone 50 MG TABLET PO PRN (22:30)
[2020-04-03] MEDS: ACETAMINOPHEN 1,000 MG/100 ML 100 ML IV SCH ×4 (04:34→21:34)
[2020-04-03] MEDS: HYDROmorphone 0.5 MG/0.5 ML SYRINGE IVP PRN ×7 (05:02→23:48)
[2020-04-03 05:59] LABS: BASOPHILS % (AUTO) 0.3 %; EOSINOPHILS % (AUTO) 0.3 %; HGB - HEMOGLOBIN 11.6 g/dL (12.0-16.0); LYMPHOCYTES # (AUTO) 2.1 10^3/uL (1.5-3.5); LYMPHOCYTES % (AUTO) 21.6 %; MEAN CORPUSCULAR HEMOGLOBIN 32.9 pg (27.0-31.0); MEAN CORPUSCULAR HGB CONC 33.1 g/dL (32.0-36.0); MEAN CORPUSCULAR VOLUME 99.2 fL (81.0-99.0); MEAN PLATELET VOLUME 9.6 fL (7.9-10.8); MONOCYTES # (AUTO) 0.6 10^3/uL (0.0-1.0); MONOCYTES % (AUTO) 5.9 %; NEUTROPHILS # (AUTO) 7.1 10^3/uL (1.5-6.6); NEUTROPHILS % (AUTO) 71.7 %; PLT - PLATELET COUNT 228 10^3/uL (130-450); RED BLOOD COUNT 3.53 10^6/uL (4.20-5.40); RED CELL DISTRIBUTION WIDTH 12.2 % (12.0-15.0); WHITE BLOOD COUNT 9.9 x10^3/uL (4.8-10.8)
[2020-04-03 06:11] LABS: ALBUMIN 2.9 g/dL (3.2-5.5); BILIRUBIN,TOTAL 1.2 mg/dL (0.2-1.0); CALCIUM 8.4 mg/dL (8.5-10.3); CREATININE 0.6 mg/dL (0.4-1.0); TOTAL PROTEIN 5.7 g/dL (6.7-8.2)
[2020-04-03] MEDS: PANTOPRAZOLE 40 MG TABLET PO SCH (06:18)
[2020-04-03] MEDS: GABAPENTIN 100 MG CAPSULE PO SCH ×3 (06:18→21:35)
[2020-04-03] MEDS: ENOXAPARIN 40 MG/0.4 ML SYRINGE SUBQ SCH (08:23)
[2020-04-03] MEDS: MULTIVITAMIN TABLET PO SCH (08:23)
--- NOTE | 2020-04-03 12:47 | PROVIDER PROGRESS NOTE ---
Subjective - General Admit Date: 04/02/20 Procedure Date: 04/02/20 (Postoperative day #1) Post Op Days: 3 Procedure Performed: See electronic medical record, ileostomy reversal amongst others. - Review of Systems Wound/Incisions: positive: Healing well, Dressing dry and intact, Drainage, Other (Will drain with serosanguineous discharge.) Drain Type: Will drain General: positive: No symptoms, Fatigue HEENT: positive: No symptoms Pulmonary: positive: No symptoms Cardiovascular: positive: No symptoms Gastrointestinal: positive: Other (Awaiting bowel function, no nausea, no vomiting. No flatus, no bowel movement. Incisional PAIN as anticipated.) Genitourinary: positive: No symptoms, Other (Successful trial of void) Musculoskeletal: positive: No symptoms Psychiatric: positive: No symptoms Objective - Patient Data Vital Signs: Vital Signs x48h Temp Pulse Resp BP Pulse Ox 04/03/20 11:21 37.1 C 61 16 97/64 94 04/03/20 07:25 37.1 C 59 L 16 107/84 H 96 04/03/20 05:32 36.9 C 61 20 104/70 96 Weight: Weight 04/01/20 04/02/20 04/03/20 23:59 23:59 23:59 Weight (kg) 68 kg Intake & Output: Intake and Output Totals x24h 04/01/20 04/02/20 04/03/20 23:59 23:59 23:59 Intake Total 1640 1160 Output Total 725 550 Balance 915 610 - Lab Results Lab Results: 04/05/20 04:35 04/05/20 04:35 Other Lab Results: Lab Results x24hrs 04/03/20 04/03/20 04/03/20 Range/Units 10:56 07:24 05:24 WBC (4.8-10.8) x10^3/uL RBC (4.20-5.40) 10^6/uL Hgb (12.0-16.0) g/dL Hct (37.0-47.0) % MCV (81.0-99.0) fL MCH (27.0-31.0) pg MCHC (32.0-36.0) g/dL RDW (12.0-15.0) % Plt Count (130-450) 10^3/uL MPV (7.9-10.8) fL Neut # (Auto) (1.5-6.6) 10^3/uL Lymph # (Auto) (1.5-3.5) 10^3/uL Houghton # (Auto) (0.0-1.0) 10^3/uL Eos # (Auto) (0.0-0.7) 10^3/uL Baso # (Auto) (0.0-0.1) 10^3/uL Absolute Nucleated RBC x10^3/uL Nucleated RBC % /100WBC Sodium 135 (135-145) mmol/L Potassium 3.1 L (3.5-5.0) mmol/L Chloride 105 (101-111) mmol/L Carbon Dioxide 24 (21-32) mmol/L Anion Gap 6.0 (6-13) BUN 5 L (6-20) mg/dL Creatinine 0.6 (0.4-1.0) mg/dL Estimated GFR (MDRD) 106 (>89) Glucose 110 H (70-100) mg/dL POC Whole Bld Glucose 126 H 102 H (70 - 100) mg/dL Calcium 8.4 L (8.5-10.3) mg/dL Total Bilirubin 1.2 H (0.2-1.0) mg/dL AST 13 (10-42) IU/L ALT 14 (10-60) IU/L Alkaline Phosphatase 44 (42-121) IU/L Total Protein 5.7 L (6.7-8.2) g/dL Albumin 2.9 L (3.2-5.5) g/dL Globulin 2.8 (2.1-4.2) g/dL Albumin/Globulin Ratio 1.0 (1.0-2.2) 04/03/20 04/02/20 04/02/20 Range/Units 05:24 20:28 16:56 WBC 9.9 (4.8-10.8) x10^3/uL RBC 3.53 L (4.20-5.40) 10^6/uL Hgb 11.6 L (12.0-16.0) g/dL Hct 35.0 L (37.0-47.0) % MCV 99.2 H (81.0-99.0) fL MCH 32.9 H (27.0-31.0) pg MCHC 33.1 (32.0-36.0) g/dL RDW 12.2 (12.0-15.0) % Plt Count 228 (130-450) 10^3/uL MPV 9.6 (7.9-10.8) fL Neut # (Auto) 7.1 H (1.5-6.6) 10^3/uL Lymph # (Auto) 2.1 (1.5-3.5) 10^3/uL Houghton # (Auto) 0.6 (0.0-1.0) 10^3/uL Eos # (Auto) 0.0 (0.0-0.7) 10^3/uL Baso # (Auto) 0.0 (0.0-0.1) 10^3/uL Absolute Nucleated RBC 0.00 x10^3/uL Nucleated RBC % 0.0 /100WBC Sodium (135-145) mmol/L Potassium (3.5-5.0) mmol/L Chloride (101-111) mmol/L Carbon Dioxide (21-32) mmol/L Anion Gap (6-13) BUN (6-20) mg/dL Creatinine (0.4-1.0) mg/dL Estimated GFR (MDRD) (>89) Glucose (70-100) mg/dL POC Whole Bld Glucose 155 H 135 H (70 - 100) mg/dL Calcium (8.5-10.3) mg/dL Total Bilirubin (0.2-1.0) mg/dL AST (10-42) IU/L ALT (10-60) IU/L Alkaline Phosphatase (42-121) IU/L Total Protein (6.7-8.2) g/dL Albumin (3.2-5.5) g/dL Globulin (2.1-4.2) g/dL Albumin/Globulin Ratio (1.0-2.2) - Current Medications Current Medications: Current Medications Generic Name Dose Route Start Last Admin Trade Name Freq PRN Reason Stop Dose Admin Enoxaparin Sodium 40 mg 04/03/20 09:00 04/03/20 08:23 Lovenox SUBQ 40 mg DAILY DESI Administration Gabapentin 100 mg 04/02/20 19:27 04/03/20 06:18 Neurontin PO 100 mg TID DESI Administration Hydromorphone HCl 0.5 mg 04/02/20 12:03 04/03/20 08:28 Dilaudid Inj Syringe IVP 0.5 mg Q2H PRN Administration PAIN Hydroxyzine Pamoate 25 mg 04/02/20 19:28 04/02/20 19:40 Vistaril PO 25 mg TID PRN Administration ITCHING Lactated Ringer's 1,000 mls @ 50 mls/hr 04/02/20 13:00 04/02/20 21:35 Lr IV 50 mls/hr .Q20H DESI Administration Acetaminophen 100 mls @ 400 mls/hr 04/02/20 16:00 04/03/20 10:22 Ofirmev IV 04/04/20 10:14 Infused Q6H DESI Infusion Multivitamins 1 tab 04/03/20 08:00 04/03/20 08:23 Theragran PO 1 tab DAILYWM DESI Administration Ondansetron HCl 4 mg 04/02/20 12:03 04/02/20 15:30 Zofran Inj IVP 4 mg Q6HR PRN Administration Nausea / Vomiting Pantoprazole Sodium 40 mg 04/03/20 07:00 04/03/20 06:18 Protonix PO 40 mg QDAC DESI Administration Trazodone HCl 50 mg 04/02/20 12:02 04/02/20 22:30 Desyrel PO 50 mg QPM PRN Administration Insomnia - Physical Exam Wound/Incisions: positive: Healing well, Dressing dry and intact, Drainage General Appearance: positive: No acute distress Eyes Bilateral: positive: Normal inspection, PERRL, EOMI ENT: positive: ENT inspection nml Neck: positive: Nml inspection Respiratory: positive: Chest non-tender, Breath sounds nml. negative: Wheezes, Rales, Rhonchi Cardiovascular: positive: Regular rate & rhythm Abdomen: positive: Other. negative: Guarding, Rebound (Abdomen soft, appropriately tender to palpation. No rebound, no guarding. Packing intact serosanguineous drainage. Drain Will suprapubic with serosanguineous drainage.) Back: positive: Nml inspection Skin: positive: Color nml Extremities: positive: Non-tender Neurologic/Psychiatric: positive: Oriented x3, CN's nml (2-12) Impression/Plan - Problem List Problem List: 49-year-old female with complicated diverticulitis associated stricture and refractory disease failing maximal medical therapy who underwent laparoscopic low anterior resection with proximal diversion with loop ileostomy. Patient has been doing well postoperatively and is postop days #1 status post loop ileostomy takedown. She was also performed for parastomal hernia repair simultaneous. No complication awaiting bowel function. Hypo-kalemia for which replacements has been ordered. Plan going forward is as follows: (1) GI - IVF. GI ppx. Anticipate ileus. Opiate sparring analgesia and will consider relistor. Awaiting bowel function. (2) SURGERY/Wound care - Continue WILL. Continue packing historic stoma site. (3) Renal/Lytes -replete potassium, BUN and creatinine within normal limits. Continue daily laboratory values. (4) Respiratory - O2 as necessary. Continue IS. (5) Heme - Will continue with DVT ppx. H&H stable. (6) Cardiovascular -hemodynamically acceptable. (7) Neuro - Opiate sparring analgesia. Status post tap block. Antispasmodics with Robaxin. Toradol tomorrow.
[2020-04-03] MEDS: D5NS W/20 MEQ KCL 1,000 ML IV SCH (14:05)
[2020-04-03] MEDS: POTASSIUM CHLOR 10 MEQ/100 ML 10 MEQ/100 ML BAG IV SCH ×3 (14:05→18:39)
[2020-04-03] MEDS: hydrOXYzine PAMOATE 25 MG CAPSULE PO PRN (14:08)
[2020-04-04] MEDS: D5NS W/20 MEQ KCL 1,000 ML IV SCH ×2 (04:02→17:07)
[2020-04-04] MEDS: ACETAMINOPHEN 1,000 MG/100 ML 100 ML IV SCH ×2 (04:46→10:10)
[2020-04-04 05:14] LABS: BASOPHILS # (AUTO) 0.1 10^3/uL (0.0-0.1); BASOPHILS % (AUTO) 0.6 %; EOSINOPHILS # (AUTO) 0.4 10^3/uL (0.0-0.7); EOSINOPHILS % (AUTO) 4.6 %; HGB - HEMOGLOBIN 11.6 g/dL (12.0-16.0); LYMPHOCYTES # (AUTO) 2.2 10^3/uL (1.5-3.5); LYMPHOCYTES % (AUTO) 27.6 %; MEAN CORPUSCULAR HEMOGLOBIN 34.6 pg (27.0-31.0); MEAN CORPUSCULAR VOLUME 101.8 fL (81.0-99.0); MEAN PLATELET VOLUME 9.1 fL (7.9-10.8); MONOCYTES # (AUTO) 0.6 10^3/uL (0.0-1.0); NEUTROPHILS # (AUTO) 4.7 10^3/uL (1.5-6.6); NEUTROPHILS % (AUTO) 59.9 %; PLT - PLATELET COUNT 208 10^3/uL (130-450); RED BLOOD COUNT 3.35 10^6/uL (4.20-5.40); RED CELL DISTRIBUTION WIDTH 12.5 % (12.0-15.0); WHITE BLOOD COUNT 7.8 x10^3/uL (4.8-10.8)
[2020-04-04 05:28] LABS: ALBUMIN 2.9 g/dL (3.2-5.5); ALBUMIN/GLOBULIN RATIO 1.1 (1.0-2.2); BILIRUBIN,TOTAL 0.6 mg/dL (0.2-1.0); CALCIUM 8.4 mg/dL (8.5-10.3); CREATININE 0.5 mg/dL (0.4-1.0); TOTAL PROTEIN 5.6 g/dL (6.7-8.2)
[2020-04-04] MEDS: GABAPENTIN 100 MG CAPSULE PO SCH ×3 (06:12→22:15)
[2020-04-04] MEDS: PANTOPRAZOLE 40 MG TABLET PO SCH (06:12)
[2020-04-04] MEDS: HYDROmorphone 0.5 MG/0.5 ML SYRINGE IVP PRN ×5 (07:49→23:36)
[2020-04-04] MEDS: polyethylene glycoL 3350 17 GM PACKET PO PRN (07:50)
[2020-04-04] MEDS: MULTIVITAMIN TABLET PO SCH (07:51)
[2020-04-04] MEDS: ENOXAPARIN 40 MG/0.4 ML SYRINGE SUBQ SCH (07:51)
[2020-04-04] MEDS: ONDANSETRON 4 MG/2 ML VIAL IVP PRN ×2 (07:58→23:44)
[2020-04-04] MEDS: METOCLOPRAMIDE 10 MG/2 ML VIAL IVP PRN (12:49)
--- NOTE | 2020-04-04 12:53 | PROVIDER PROGRESS NOTE ---
Subjective - General Admit Date: 04/02/20 Procedure Date: 04/02/20 (Postoperative day #2) Post Op Days: 3 Procedure Performed: Please see EMR, status post ileostomy takedown, amongst others. - Review of Systems Wound/Incisions: positive: Healing well, Other (Packing change as per below.) Drain Type: Will drain General: positive: No symptoms HEENT: positive: No symptoms Pulmonary: positive: No symptoms Gastrointestinal: positive: Other (Awaiting for resumption of bowel function. No flatus, no bowel movement. No nausea no vomiting.) Objective - Patient Data Vital Signs: Vital Signs x48h Temp Pulse Resp BP Pulse Ox 04/04/20 11:29 37.0 C 66 16 108/71 94 04/04/20 07:33 36.6 C 72 16 118/72 96 04/04/20 04:56 36.7 C 63 18 130/79 100 Weight: Weight 04/02/20 04/03/20 04/04/20 23:59 23:59 23:59 Weight (kg) 68 kg Intake & Output: Intake and Output Totals x24h 04/02/20 04/03/20 04/04/20 23:59 23:59 23:59 Intake Total 1640 3715 1850 Output Total 725 775 Balance 915 2940 1850 - Lab Results Lab Results: 04/05/20 04:35 04/05/20 04:35 Other Lab Results: Lab Results x24hrs 04/04/20 04/04/20 04/04/20 Range/Units 11:00 07:25 05:05 WBC (4.8-10.8) x10^3/uL RBC (4.20-5.40) 10^6/uL Hgb (12.0-16.0) g/dL Hct (37.0-47.0) % MCV (81.0-99.0) fL MCH (27.0-31.0) pg MCHC (32.0-36.0) g/dL RDW (12.0-15.0) % Plt Count (130-450) 10^3/uL MPV (7.9-10.8) fL Neut # (Auto) (1.5-6.6) 10^3/uL Lymph # (Auto) (1.5-3.5) 10^3/uL Green # (Auto) (0.0-1.0) 10^3/uL Eos # (Auto) (0.0-0.7) 10^3/uL Baso # (Auto) (0.0-0.1) 10^3/uL Absolute Nucleated RBC x10^3/uL Nucleated RBC % /100WBC Sodium 139 (135-145) mmol/L Potassium 3.5 (3.5-5.0) mmol/L Chloride 110 (101-111) mmol/L Carbon Dioxide 24 (21-32) mmol/L Anion Gap 5.0 L (6-13) BUN 5 L (6-20) mg/dL Creatinine 0.5 (0.4-1.0) mg/dL Estimated GFR (MDRD) 131 (>89) Glucose 112 H (70-100) mg/dL POC Whole Bld Glucose 124 H 98 (70 - 100) mg/dL Calcium 8.4 L (8.5-10.3) mg/dL Total Bilirubin 0.6 (0.2-1.0) mg/dL AST 13 (10-42) IU/L ALT 14 (10-60) IU/L Alkaline Phosphatase 41 L (42-121) IU/L Total Protein 5.6 L (6.7-8.2) g/dL Albumin 2.9 L (3.2-5.5) g/dL Globulin 2.7 (2.1-4.2) g/dL Albumin/Globulin Ratio 1.1 (1.0-2.2) 04/04/20 04/03/20 04/03/20 Range/Units 05:05 20:54 16:37 WBC 7.8 (4.8-10.8) x10^3/uL RBC 3.35 L (4.20-5.40) 10^6/uL Hgb 11.6 L (12.0-16.0) g/dL Hct 34.1 L (37.0-47.0) % MCV 101.8 H (81.0-99.0) fL MCH 34.6 H (27.0-31.0) pg MCHC 34.0 (32.0-36.0) g/dL RDW 12.5 (12.0-15.0) % Plt Count 208 (130-450) 10^3/uL MPV 9.1 (7.9-10.8) fL Neut # (Auto) 4.7 (1.5-6.6) 10^3/uL Lymph # (Auto) 2.2 (1.5-3.5) 10^3/uL Green # (Auto) 0.6 (0.0-1.0) 10^3/uL Eos # (Auto) 0.4 (0.0-0.7) 10^3/uL Baso # (Auto) 0.1 (0.0-0.1) 10^3/uL Absolute Nucleated RBC 0.00 x10^3/uL Nucleated RBC % 0.0 /100WBC Sodium (135-145) mmol/L Potassium (3.5-5.0) mmol/L Chloride (101-111) mmol/L Carbon Dioxide (21-32) mmol/L Anion Gap (6-13) BUN (6-20) mg/dL Creatinine (0.4-1.0) mg/dL Estimated GFR (MDRD) (>89) Glucose (70-100) mg/dL POC Whole Bld Glucose 110 H 110 H (70 - 100) mg/dL Calcium (8.5-10.3) mg/dL Total Bilirubin (0.2-1.0) mg/dL AST (10-42) IU/L ALT (10-60) IU/L Alkaline Phosphatase (42-121) IU/L Total Protein (6.7-8.2) g/dL Albumin (3.2-5.5) g/dL Globulin (2.1-4.2) g/dL Albumin/Globulin Ratio (1.0-2.2) - Current Medications Current Medications: Current Medications Generic Name Dose Route Start Last Admin Trade Name Freq PRN Reason Stop Dose Admin Enoxaparin Sodium 40 mg 04/03/20 09:00 04/04/20 07:51 Lovenox SUBQ 40 mg DAILY DESI Administration Gabapentin 100 mg 04/02/20 19:27 04/04/20 06:12 Neurontin PO 100 mg TID DESI Administration Hydromorphone HCl 0.5 mg 04/02/20 12:03 04/04/20 12:45 Dilaudid Inj Syringe IVP 0.5 mg Q2H PRN Administration PAIN Hydroxyzine Pamoate 25 mg 04/02/20 19:28 04/03/20 14:08 Vistaril PO 25 mg TID PRN Administration ITCHING Potassium Chloride/Dextrose/Sod Cl 1,000 mls @ 75 mls/hr 04/03/20 13:00 04:02 IV 75 mls/hr .[id number] DESI Administration Metoclopramide HCl 10 mg 04/02/20 12:03 04/04/20 12:49 Reglan Inj IVP 10 mg Q6HR PRN Administration Nausea / Vomiting Multivitamins 1 tab 04/03/20 08:00 04/04/20 07:51 Theragran PO 1 tab DAILYWM DESI Administration Ondansetron HCl 4 mg 04/02/20 12:03 04/04/20 07:58 Zofran Inj IVP 4 mg Q6HR PRN Administration Nausea / Vomiting Pantoprazole Sodium 40 mg 04/03/20 07:00 04/04/20 06:12 Protonix PO 40 mg QDAC DESI Administration Polyethylene Glycol 17 gm 04/02/20 12:03 04/04/20 07:50 Miralax PO 17 gm DAILY PRN Administration Bowel Protocol Trazodone HCl 50 mg 04/02/20 12:02 04/02/20 22:30 Desyrel PO 50 mg QPM PRN Administration Insomnia - Physical Exam Wound/Incisions: positive: Healing well, Dressing dry and intact, No drainage, Other (Wound packing changed, risk-benefit discussed. Old packing strip removed wound with no purulent drainage, no erythema, no induration. Replaced with quarter inch iodoform packing strip approximately 6 inches continuous. Patient tolerated well. Pursestring intact. Dressed with dry sterile gauze a) General Appearance: positive: No acute distress, Alert Eyes Bilateral: positive: Normal inspection, PERRL, EOMI ENT: positive: ENT inspection nml, No signs of dehydration Neck: positive: Nml inspection Respiratory: positive: Chest non-tender. negative: Wheezes, Rales, Rhonchi Cardiovascular: positive: Regular rate & rhythm Abdomen: positive: Non-tender, Other (Appropriately tender to palpation, no rebound, no guarding. Dressing change as per above. Will drain with serosanguineous discharge. Patient with no infectious sequelae with out erythema, induration, or other concerning stigmata.) Skin: positive: Color nml Extremities: positive: Non-tender Neurologic/Psychiatric: positive: Oriented x3 Impression/Plan - Problem List Problem List: 49-year-old female with complicated diverticulitis associated stricture and refractory disease failing maximal medical therapy who underwent laparoscopic low anterior resection with proximal diversion with loop ileostomy. Patient has been doing well postoperatively and is postop days # 2 status post loop ileostomy takedown. She was also performed for parastomal hernia repair simultaneous. No complication awaiting bowel function. Hypo-kalemia for which replacements has been ordered. Plan going forward is as follows: (1) GI - IVF. GI ppx. Anticipate ileus. Opiate sparring analgesia and will consider relistor. Awaiting bowel function. (2) SURGERY/Wound care - Continue WILL. Continue packing historic stoma site. (3) Renal/Lytes -replete potassium, BUN and creatinine within normal limits. Continue daily laboratory values. (4) Respiratory - O2 as necessary. Continue IS. (5) Heme - Will continue with DVT ppx. H&H stable. (6) Cardiovascular - hemodynamically acceptable. (7) Neuro - Opiate sparring analgesia. Status post tap block. Antispasmodics with Robaxin. Toradol.
[2020-04-04] MEDS: hydrOXYzine PAMOATE 25 MG CAPSULE PO PRN (13:41)
[2020-04-04] MEDS: traZODone 50 MG TABLET PO PRN (22:15)
[2020-04-05] MEDS: HYDROmorphone 0.5 MG/0.5 ML SYRINGE IVP PRN ×8 (01:36→22:58)
[2020-04-05 04:57] LABS: BASOPHILS % (AUTO) 0.3 %; EOSINOPHILS # (AUTO) 0.4 10^3/uL (0.0-0.7); EOSINOPHILS % (AUTO) 4.6 %; HGB - HEMOGLOBIN 11.9 g/dL (12.0-16.0); LYMPHOCYTES % (AUTO) 22.8 %; MEAN CORPUSCULAR HGB CONC 33.9 g/dL (32.0-36.0); MEAN CORPUSCULAR VOLUME 100.3 fL (81.0-99.0); MEAN PLATELET VOLUME 9.4 fL (7.9-10.8); MONOCYTES # (AUTO) 0.7 10^3/uL (0.0-1.0); MONOCYTES % (AUTO) 7.8 %; NEUTROPHILS # (AUTO) 5.7 10^3/uL (1.5-6.6); PLT - PLATELET COUNT 231 10^3/uL (130-450); RED CELL DISTRIBUTION WIDTH 12.5 % (12.0-15.0); WHITE BLOOD COUNT 8.9 x10^3/uL (4.8-10.8)
[2020-04-05 05:07] LABS: ALBUMIN 2.9 g/dL (3.2-5.5); ALBUMIN/GLOBULIN RATIO 0.9 (1.0-2.2); ALKALINE PHOSPHATASE 45 IU/L (42-121); ALT ALANINE AMINOTRANSFERASE 11 IU/L (10-60); AST ASPARTATE AMINOTRANSFERASE 10 IU/L (10-42); BILIRUBIN,TOTAL 0.7 mg/dL (0.2-1.0); BUN - BLOOD UREA NITROGEN < 5 mg/dL (6-20); CALCIUM 8.5 mg/dL (8.5-10.3); CARBON DIOXIDE - CO2 25 mmol/L (21-32); CHLORIDE 105 mmol/L (101-111); CREATININE 0.6 mg/dL (0.4-1.0); GLUCOSE 120 mg/dL (70-100); SODIUM 137 mmol/L (135-145)
[2020-04-05] MEDS: ONDANSETRON 4 MG/2 ML VIAL IVP PRN (06:12)
[2020-04-05] MEDS: PANTOPRAZOLE 40 MG TABLET PO SCH (06:13)
[2020-04-05] MEDS: D5NS W/20 MEQ KCL 1,000 ML IV SCH ×2 (06:17→19:00)
[2020-04-05] MEDS: GABAPENTIN 100 MG CAPSULE PO SCH ×3 (06:18→22:01)
[2020-04-05] MEDS: METOCLOPRAMIDE 10 MG/2 ML VIAL IVP PRN (08:03)
[2020-04-05] MEDS: ENOXAPARIN 40 MG/0.4 ML SYRINGE SUBQ SCH (08:12)
[2020-04-05] MEDS: MULTIVITAMIN TABLET PO SCH (08:16)
[2020-04-05] MEDS: ACETAMINOPHEN 1,000 MG/100 ML 100 ML IV SCH ×2 (11:57→18:08)
[2020-04-05] MEDS: KETOROLAC 15 MG/ML VIAL IVP SCH ×2 (11:58→18:08)
[2020-04-05] MEDS ORDERED: POTASSIUM CHLORIDE 20 MEQ/15 ML UDC PO SCH (12:00)
[2020-04-05] MEDS: POTASSIUM CHLOR 10 MEQ/100 ML 10 MEQ/100 ML BAG IV SCH ×3 (14:21→18:08)
--- NOTE | 2020-04-05 17:29 | PROVIDER PROGRESS NOTE ---
Subjective - General Admit Date: 04/02/20 Procedure Date: 04/02/20 (Postoperative day #3) Post Op Days: 7 Procedure Performed: Please see EMR, status post ileostomy takedown, amongst others. - Review of Systems Wound/Incisions: positive: Healing well, Dressing dry and intact, No drainage, Other (Wound packing changed, risk-benefit discussed. Old packing strip removed wound with no purulent drainage, no erythema, no induration. Replaced with quarter inch iodoform packing strip approximately 6 inches continuous. Patient tolerated well. Pursestring intact. Dressed with dry sterile gauze a) Drain Type: Will drain General: positive: No symptoms HEENT: positive: No symptoms Pulmonary: positive: No symptoms Cardiovascular: positive: No symptoms Gastrointestinal: positive: Other (Awaiting for resumption of bowel function. No flatus, no bowel movement. No nausea no vomiting.) Genitourinary: positive: No symptoms, Other (Successful trial of void) Musculoskeletal: positive: No symptoms Psychiatric: positive: No symptoms Objective - Patient Data Vital Signs: Vital Signs x48h Temp Pulse Resp BP Pulse Ox 04/05/20 16:49 36.9 C 69 18 132/80 H 100 04/05/20 12:00 36.5 C 71 20 116/80 98 Intake & Output: Intake and Output Totals x24h 04/03/20 04/04/20 04/05/20 23:59 23:59 23:59 Intake Total 3715 3281.25 1427.5 Output Total 775 Balance 2940 3281.25 1427.5 - Lab Results Lab Results: 04/06/20 05:18 04/06/20 05:18 Other Lab Results: Lab Results x24hrs 04/05/20 04/05/20 04/05/20 Range/Units 16:21 11:38 07:52 WBC (4.8-10.8) x10^3/uL RBC (4.20-5.40) 10^6/uL Hgb (12.0-16.0) g/dL Hct (37.0-47.0) % MCV (81.0-99.0) fL MCH (27.0-31.0) pg MCHC (32.0-36.0) g/dL RDW (12.0-15.0) % Plt Count (130-450) 10^3/uL MPV (7.9-10.8) fL Neut # (Auto) (1.5-6.6) 10^3/uL Lymph # (Auto) (1.5-3.5) 10^3/uL Grand # (Auto) (0.0-1.0) 10^3/uL Eos # (Auto) (0.0-0.7) 10^3/uL Baso # (Auto) (0.0-0.1) 10^3/uL Absolute Nucleated RBC x10^3/uL Nucleated RBC % /100WBC Sodium (135-145) mmol/L Potassium (3.5-5.0) mmol/L Chloride (101-111) mmol/L Carbon Dioxide (21-32) mmol/L Anion Gap (6-13) BUN (6-20) mg/dL Creatinine (0.4-1.0) mg/dL Estimated GFR (MDRD) (>89) Glucose (70-100) mg/dL POC Whole Bld Glucose 128 H 148 H 121 H (70 - 100) mg/dL Calcium (8.5-10.3) mg/dL Total Bilirubin (0.2-1.0) mg/dL AST (10-42) IU/L ALT (10-60) IU/L Alkaline Phosphatase (42-121) IU/L Total Protein (6.7-8.2) g/dL Albumin (3.2-5.5) g/dL Globulin (2.1-4.2) g/dL Albumin/Globulin Ratio (1.0-2.2) 04/05/20 04/05/20 04/04/20 Range/Units 04:35 04:35 20:20 WBC 8.9 (4.8-10.8) x10^3/uL RBC 3.50 L (4.20-5.40) 10^6/uL Hgb 11.9 L (12.0-16.0) g/dL Hct 35.1 L (37.0-47.0) % MCV 100.3 H (81.0-99.0) fL MCH 34.0 H (27.0-31.0) pg MCHC 33.9 (32.0-36.0) g/dL RDW 12.5 (12.0-15.0) % Plt Count 231 (130-450) 10^3/uL MPV 9.4 (7.9-10.8) fL Neut # (Auto) 5.7 (1.5-6.6) 10^3/uL Lymph # (Auto) 2.0 (1.5-3.5) 10^3/uL Grand # (Auto) 0.7 (0.0-1.0) 10^3/uL Eos # (Auto) 0.4 (0.0-0.7) 10^3/uL Baso # (Auto) 0.0 (0.0-0.1) 10^3/uL Absolute Nucleated RBC 0.00 x10^3/uL Nucleated RBC % 0.0 /100WBC Sodium 137 (135-145) mmol/L Potassium 3.4 L (3.5-5.0) mmol/L Chloride 105 (101-111) mmol/L Carbon Dioxide 25 (21-32) mmol/L Anion Gap 7.0 (6-13) BUN < 5 L (6-20) mg/dL Creatinine 0.6 (0.4-1.0) mg/dL Estimated GFR (MDRD) 106 (>89) Glucose 120 H (70-100) mg/dL POC Whole Bld Glucose 99 (70 - 100) mg/dL Calcium 8.5 (8.5-10.3) mg/dL Total Bilirubin 0.7 (0.2-1.0) mg/dL AST 10 (10-42) IU/L ALT 11 (10-60) IU/L Alkaline Phosphatase 45 (42-121) IU/L Total Protein 6.0 L (6.7-8.2) g/dL Albumin 2.9 L (3.2-5.5) g/dL Globulin 3.1 (2.1-4.2) g/dL Albumin/Globulin Ratio 0.9 L (1.0-2.2) - Current Medications Current Medications: Current Medications Generic Name Dose Route Start Last Admin Trade Name Freq PRN Reason Stop Dose Admin Enoxaparin Sodium 40 mg 04/03/20 09:00 04/05/20 08:12 Lovenox SUBQ 40 mg DAILY DESI Administration Gabapentin 100 mg 04/02/20 19:27 04/05/20 14:13 Neurontin PO 100 mg TID DESI Administration Hydromorphone HCl 0.5 mg 04/02/20 12:03 04/05/20 15:45 Dilaudid Inj Syringe IVP 0.5 mg Q2H PRN Administration PAIN Hydroxyzine Pamoate 25 mg 04/02/20 19:28 04/04/20 13:41 Vistaril PO 25 mg TID PRN Administration ITCHING Potassium Chloride/Dextrose/Sod Cl 1,000 mls @ 75 mls/hr 04/03/20 13:00 04/05/20 06:17 IV 75 mls/hr .[id number] DESI Administration Acetaminophen 100 mls @ 400 mls/hr 04/05/20 12:00 04/05/20 12:40 Ofirmev IV Infused Q6HR DESI Infusion Ketorolac Tromethamine 15 mg 04/05/20 12:00 04/05/20 11:58 Toradol Inj (15mg) IVP 04/10/20 11:59 15 mg Q6H DESI Administration Metoclopramide HCl 10 mg 04/02/20 12:03 04/05/20 08:03 Reglan Inj IVP 10 mg Q6HR PRN Administration Nausea / Vomiting Multivitamins 1 tab 04/03/20 08:00 04/05/20 08:16 Theragran PO 1 tab DAILYWM DESI Administration Ondansetron HCl 4 mg 04/02/20 12:03 04/05/20 06:12 Zofran Inj IVP 4 mg Q6HR PRN Administration Nausea / Vomiting Pantoprazole Sodium 40 mg 04/03/20 07:00 04/05/20 06:13 Protonix PO 40 mg QDAC DESI Administration Polyethylene Glycol 17 gm 04/02/20 12:03 04/04/20 07:50 Miralax PO 17 gm DAILY PRN Administration Bowel Protocol Trazodone HCl 50 mg 04/02/20 12:02 04/04/20 22:15 Desyrel PO 50 mg QPM PRN Administration Insomnia - Physical Exam Wound/Incisions: positive: Healing well, Dressing dry and intact, Other (Packing changed without any complication) General Appearance: positive: No acute distress, Alert, Mild distress Eyes Bilateral: positive: Normal inspection ENT: positive: ENT inspection nml Neck: positive: Nml inspection Respiratory: positive: Chest non-tender, No respiratory distress, Breath sounds nml. negative: Wheezes, Rales, Rhonchi Cardiovascular: positive: Regular rate & rhythm Abdomen: positive: No distention (Abdomen soft, appropriately tender to palpation. No rebound, no guarding. Wound packed. Replaced with iodoform packing strips. Dry sterile gauze top dressing. Drain with serosanguineous effluent/discharge.), Other. negative: Guarding, Rebound Extremities: positive: Non-tender, Full ROM Neurologic/Psychiatric: positive: Oriented x3, CN's nml (2-12) Impression/Plan - Problem List Problem List: 49-year-old female with complicated diverticulitis associated stricture and refractory disease failing maximal medical therapy who underwent laparoscopic low anterior resection with proximal diversion with loop ileostomy. Patient has been doing well postoperatively and is postop days # 3 status post loop ileostomy takedown. She was also performed for parastomal hernia repair simultaneous. No complication awaiting bowel function. Hypo-kalemia for which replacements has been ordered. Plan going forward is as follows: (1) GI - IVF. GI ppx. Anticipate ileus. Opiate sparring analgesia. Awaiting bowel function. (2) SURGERY/Wound care - Continue WILL. Continue packing historic stoma site. (3) Renal/Lytes -replete potassium, BUN and creatinine within normal limits. Continue daily laboratory values. (4) Respiratory - O2 as necessary. Continue IS. (5) Heme - Will continue with DVT ppx. H&H stable. (6) Cardiovascular - hemodynamically acceptable. (7) Neuro - Opiate sparring analgesia. Status post tap block. Antispasmodics with Robaxin. Toradol. [facility].
[2020-04-05] MEDS: traZODone 50 MG TABLET PO PRN (22:01)
[2020-04-06] MEDS: ACETAMINOPHEN 1,000 MG/100 ML 100 ML IV SCH ×4 (00:14→17:24)
[2020-04-06] MEDS: KETOROLAC 15 MG/ML VIAL IVP SCH ×4 (00:15→18:24)
[2020-04-06] MEDS: HYDROmorphone 0.5 MG/0.5 ML SYRINGE IVP PRN ×3 (01:57→15:53)
[2020-04-06] MEDS: D5NS W/20 MEQ KCL 1,000 ML IV SCH ×2 (05:01→16:37)
[2020-04-06 05:36] LABS: BASOPHILS % (AUTO) 0.4 %; EOSINOPHILS # (AUTO) 0.4 10^3/uL (0.0-0.7); EOSINOPHILS % (AUTO) 5.6 %; HGB - HEMOGLOBIN 11.6 g/dL (12.0-16.0); LYMPHOCYTES # (AUTO) 1.9 10^3/uL (1.5-3.5); LYMPHOCYTES % (AUTO) 24.5 %; MEAN CORPUSCULAR HEMOGLOBIN 33.8 pg (27.0-31.0); MEAN CORPUSCULAR HGB CONC 33.5 g/dL (32.0-36.0); MEAN CORPUSCULAR VOLUME 100.9 fL (81.0-99.0); MEAN PLATELET VOLUME 9.4 fL (7.9-10.8); MONOCYTES # (AUTO) 0.6 10^3/uL (0.0-1.0); MONOCYTES % (AUTO) 7.1 %; NEUTROPHILS # (AUTO) 4.8 10^3/uL (1.5-6.6); PLT - PLATELET COUNT 221 10^3/uL (130-450); RED BLOOD COUNT 3.43 10^6/uL (4.20-5.40); RED CELL DISTRIBUTION WIDTH 12.4 % (12.0-15.0); WHITE BLOOD COUNT 7.7 x10^3/uL (4.8-10.8)
[2020-04-06] MEDS: PANTOPRAZOLE 40 MG TABLET PO SCH (05:36)
[2020-04-06] MEDS: GABAPENTIN 100 MG CAPSULE PO SCH ×3 (05:37→21:30)
[2020-04-06 05:52] LABS: ALBUMIN 2.7 g/dL (3.2-5.5); ALBUMIN/GLOBULIN RATIO 0.9 (1.0-2.2); ALKALINE PHOSPHATASE 47 IU/L (42-121); ALT ALANINE AMINOTRANSFERASE 11 IU/L (10-60); AST ASPARTATE AMINOTRANSFERASE 11 IU/L (10-42); BILIRUBIN,TOTAL 0.5 mg/dL (0.2-1.0); BUN - BLOOD UREA NITROGEN < 5 mg/dL (6-20); CALCIUM 8.6 mg/dL (8.5-10.3); CARBON DIOXIDE - CO2 25 mmol/L (21-32); CHLORIDE 106 mmol/L (101-111); CREATININE 0.5 mg/dL (0.4-1.0); GLUCOSE 126 mg/dL (70-100); SODIUM 137 mmol/L (135-145); TOTAL PROTEIN 5.7 g/dL (6.7-8.2)
[2020-04-06] MEDS: MULTIVITAMIN TABLET PO SCH (08:08)
[2020-04-06] MEDS: ENOXAPARIN 40 MG/0.4 ML SYRINGE SUBQ SCH (09:20)
[2020-04-06] MEDS: METOCLOPRAMIDE 10 MG/2 ML VIAL IVP PRN ×2 (09:32→19:19)
[2020-04-06] MEDS: polyethylene glycoL 3350 17 GM PACKET PO PRN ×2 (09:32→17:28)
[2020-04-06] MEDS ORDERED: SENNA 8.6 MG TABLET PO PRN (14:13)
[2020-04-06] MEDS ORDERED: POTASSIUM CHLORIDE 20 MEQ/15 ML UDC PO ONE (15:00)
[2020-04-06] MEDS: ONDANSETRON 4 MG/2 ML VIAL IVP PRN ×2 (15:53→22:19)
[2020-04-06] MEDS: DOCUSATE SODIUM 100 MG CAPSULE PO SCH (21:30)
[2020-04-07] MEDS: ACETAMINOPHEN 1,000 MG/100 ML 100 ML IV SCH ×2 (00:37→06:25)
[2020-04-07] MEDS: KETOROLAC 15 MG/ML VIAL IVP SCH ×3 (00:38→12:09)
[2020-04-07] MEDS: D5NS W/20 MEQ KCL 1,000 ML IV SCH (01:50)
[2020-04-07] MEDS: METOCLOPRAMIDE 10 MG/2 ML VIAL IVP PRN (02:10)
[2020-04-07] MEDS: GABAPENTIN 100 MG CAPSULE PO SCH (06:19)
[2020-04-07] MEDS: PANTOPRAZOLE 40 MG TABLET PO SCH (06:19)
[2020-04-07] MEDS: ENOXAPARIN 40 MG/0.4 ML SYRINGE SUBQ SCH (09:11)
[2020-04-07] MEDS: MULTIVITAMIN TABLET PO SCH (09:11)
[2020-04-07] MEDS: DOCUSATE SODIUM 100 MG CAPSULE PO SCH (09:11)
[2020-04-07] MEDS ORDERED: ACETAMINOPHEN 500 MG TABLET PO PRN (12:00)
--- NOTE | 2020-04-07 12:35 | PROVIDER PROGRESS NOTE ---
Subjective - General Admit Date: 04/02/20 Procedure Date: 04/02/20 (Postoperative day #4) Post Op Days: 7 Procedure Performed: Please see EMR, status post ileostomy takedown, amongst others. - Review of Systems Wound/Incisions: positive: Healing well, Dressing dry and intact, No drainage, Other (Wound packing changed, risk-benefit discussed. Old packing strip removed wound with no purulent drainage, no erythema, no induration. Replaced with quarter inch iodoform packing strip approximately 6 inches continuous. Patient tolerated well. Pursestring intact. Dressed with dry sterile gauze a) Drain Type: Will drain General: positive: No symptoms HEENT: positive: No symptoms Pulmonary: positive: No symptoms Cardiovascular: positive: No symptoms Gastrointestinal: positive: Other (Awaiting for resumption of bowel function. No flatus, no bowel movement. No nausea no vomiting.) Genitourinary: positive: No symptoms, Other (Successful trial of void) Musculoskeletal: positive: No symptoms Psychiatric: positive: No symptoms Objective - Patient Data Vital Signs: Vital Signs x48h Temp Pulse Resp BP BP Pulse Ox 04/07/20 07:37 37.2 C 85 16 126/79 96 04/07/20 05:00 37.2 C 81 18 130/71 98 Intake & Output: Intake and Output Totals x24h 04/05/20 04/06/20 04/07/20 23:59 23:59 23:59 Intake Total 2890.75 3671.25 1011.25 Output Total 600 100 Balance 2890.75 3071.25 911.25 - Lab Results Lab Results: 04/06/20 05:18 04/06/20 05:18 Other Lab Results: Lab Results x24hrs 04/07/20 04/07/20 04/06/20 Range/Units 11:14 07:34 20:41 POC Whole Bld Glucose 112 H 132 H 151 H (70 - 100) mg/dL 04/06/20 Range/Units 16:32 POC Whole Bld Glucose 119 H (70 - 100) mg/dL - Current Medications Current Medications: Current Medications Generic Name Dose Route Start Last Admin Trade Name Freq PRN Reason Stop Dose Admin Docusate Sodium 100 mg 04/06/20 21:00 04/07/20 09:11 Colace 100mg Capsule PO 100 mg BID DESI Administration Enoxaparin Sodium 40 mg 04/03/20 09:00 04/07/20 09:11 Lovenox SUBQ 40 mg DAILY DESI Administration Gabapentin 100 mg 04/02/20 19:27 04/07/20 06:19 Neurontin PO 100 mg TID DESI Administration Hydromorphone HCl 0.5 mg 04/02/20 12:03 04/06/20 15:53 Dilaudid Inj Syringe IVP 0.5 mg Q2H PRN Administration PAIN Hydroxyzine Pamoate 25 mg 04/02/20 19:28 04/04/20 13:41 Vistaril PO 25 mg TID PRN Administration ITCHING Potassium Chloride/Dextrose/Sod Cl 1,000 mls @ 75 mls/hr 04/03/20 13:00 01:50 IV 75 mls/hr .[id number] DESI Administration Ketorolac Tromethamine 15 mg 04/05/20 12:00 04/07/20 12:09 Toradol Inj (15mg) IVP 04/10/20 11:59 15 mg Q6H DESI Administration Metoclopramide HCl 10 mg 04/02/20 12:03 04/07/20 02:10 Reglan Inj IVP 10 mg Q6HR PRN Administration Nausea / Vomiting Multivitamins 1 tab 04/03/20 08:00 04/07/20 09:11 Theragran PO 1 tab DAILYWM DESI Administration Ondansetron HCl 4 mg 04/02/20 12:03 04/06/20 22:19 Zofran Inj IVP 4 mg Q6HR PRN Administration Nausea / Vomiting Pantoprazole Sodium 40 mg 04/03/20 07:00 04/07/20 06:19 Protonix PO 40 mg QDAC DESI Administration Polyethylene Glycol 17 gm 04/02/20 12:03 04/06/20 17:28 Miralax PO 17 gm DAILY PRN Administration Bowel Protocol Senna 8.6 mg 04/06/20 14:13 04/06/20 15:54 Senokot PO 8.6 mg DAILY PRN Administration Constipation Trazodone HCl 50 mg 04/02/20 12:02 04/05/20 22:01 Desyrel PO 50 mg QPM PRN Administration Insomnia - Physical Exam Wound/Incisions: positive: Healing well General Appearance: positive: No acute distress Eyes Bilateral: positive: Normal inspection, PERRL, EOMI Neck: positive: Nml inspection Respiratory: positive: Chest non-tender, No respiratory distress, Breath sounds nml. negative: Wheezes, Rales, Rhonchi Cardiovascular: positive: Regular rate & rhythm Abdomen: positive: Non-tender, No distention, Other (Wounds clean dry and intact, packed with iodoform packing strips, covered and dry sterile gauze. Drain with serosanguineous discharge. Appropriately tender to palpation. No rebound. No guarding. Nondistended. Normoactive bowel sounds.). negative: Tenderness, Guarding, Rebound Extremities: positive: Non-tender, Full ROM Neurologic/Psychiatric: positive: Oriented x3, CN's nml (2-12) Impression/Plan - Problem List Problem List: 49-year-old female with complicated diverticulitis associated stricture and refractory disease failing maximal medical therapy who underwent laparoscopic low anterior resection with proximal diversion with loop ileostomy. Patient has been doing well postoperatively and is postop days # 4 status post loop ileostomy takedown. She was also performed for parastomal hernia repair simultaneous. Slow resumption of bowel function; positive flatus. (1) GI - IVF. GI ppx. Anticipate ileus. Opiate sparring analgesia and will consider relistor. Slow resumption of bowel function. (2) SURGERY/Wound care - Continue WILL; will discontinue prior to discharge. Continue packing historic stoma site. (3) Renal/Lytes - BUN and creatinine within normal limits. Continue daily laboratory values. (4) Respiratory - O2 as necessary. Continue IS. (5) Heme - Will continue with DVT ppx. H&H stable. (6) Cardiovascular - hemodynamically acceptable. (7) Neuro - Opiate sparring analgesia. Status post tap block. Antispasmodics with Robaxin. Toradol. Ofirmev. (8) Discharge planning - likely d/c 24 hours, home care for wound care, once appropriate/full resumption of bowel function.
--- NOTE | 2020-04-07 12:45 | Discharge Plan ---
Discharge Plan Problem Reviewed?: Yes Disposition: 06 Home Health Service Condition: Good Prescriptions: Docusate Sodium 100Mg Capsule [Colace 100Mg Capsule] 100 mg PO BID #60 capsule polyethylene glycoL 3350 [Miralax] 17 gm PO DAILY PRN #30 packet PRN Reason: Bowel Protocol Gabapentin [Neurontin] 100 mg PO TID 10 Days #30 capsule Pantoprazole [Protonix] 40 mg PO QDAC #30 tablet oxyCODONE [Roxicodone] 5 mg PO ONCE PRN #30 tablet PRN Reason: Pain hydrOXYzine PAMOATE [Vistaril] 25 mg PO TID PRN #30 capsule PRN Reason: Itching Diet: Soft Activity Restrictions: (No heavy lifting/pushing/pulling) Shower Restrictions: No Driving Restrictions: Yes (No driving while take narcotics) Instruction Topics: Hernia Surg, Abdomen Surg [facility] Concerns: DISCHARGE INSTRUCTIONS TEMPLATE: No heavy lifting, pushing, or pulling. Stairs are allowed, no strenuous/exertional activities. 5-10lbs weight carrying limit (i.e. gallon of milk) If provided, abdominal binder while out of bed and while ambulating. Call or proceed to clinic/ER for fevers, severe pain, nausea, vomiting, inability to pass flatus/stool, bleeding, wound redness/discharge, weakness, excessively loose stool/diarrhea, or for any other reasonably worrisome symptom or concern. Soft diet, no raw vegetables, avoid high fiber foods. Colace 100mg by mouth twice to three times daily while taking narcotic pain medication. If no bowel movement in 24-48hr, may take 17g Miralax in 8oz water twice daily until bowel movement. May shower, no submersive bathing. Follow up in clinic in 2-4 weeks for wound check and staple removal. No driving while taking narcotic pain medications. Follow up with primary care provider and/or medical subspecialist following discharge as well. Continue with wound packing to right lower quadrant historic ileostomy site daily with iodoform quarter-inch covered by dry sterile gauze top dressing. May shower. Follow-Up Care: [facility] - Wound/Ostomy No Smoking: If you smoke, Please STOP! Call for help. Follow-up with: Lamin Pedersen MD [Provider Admit Priv/Credential] -
--- NOTE | 2020-04-07 12:51 | DISCHARGE SUMMARY ---
"Discharge Summary Admit Date: 04/03/20 Discharge Date: 04/06/20 Discharging Provider: Nuvia Primary Care Provider: Nano Condition at Discharge: Good Discharge Disposition: 06 [facility] Service - DIAGNOSES Admission Diagnoses: (1) Diverticulitis, complicated (2) S/P low anterior resection (3) Proximal diversion with ileostomy (4) Abdominal adhesions (5) Anastomotic stricture, s/p pneumatic dilation (6) Ileus, post-operative (7) Hypokalemia Discharge Diagnoses with Status of Each Condition: (1) Diverticulitis, complicated - RESOLVED (2) S/P low anterior resection - RESOLVED (3) Proximal diversion with ileostomy - RESOLVED (4) Abdominal adhesions - RESOLVED (5) Anastomotic stricture, s/p pneumatic dilation - RESOLVED (6) Ileus, post-operative - RESOLVED (7) Hypokalemia - RESOLVED - HPI History of Present Illness: 49-year-old female with complicated diverticulitis associated stricture and refractory disease failing maximal medical therapy who underwent laparoscopic low anterior resection with proximal diversion with loop ileostomy. Patient with history of complicated diverticulitis failing maximum medical therapy. Patient underwent preoperative work-up to include colonoscopy as well as necessary anastomotic pneumatic dilation for slight stenosis. She presented this admission for ileostomy takedown. She was also performed for parastomal hernia repair simultaneous. - CONSULTS | PROCEDURES Procedures: Procedure Performed: 1. Ileostomy takedown 2. Small bowel resection 3. [id number] functional end-to-end antiperistaltic anastomosis stapled with primary enterotomy closure to layers 4. Parastomal hernia repair 5. Drain placement 6. Tap block 7. Adhesio lysis - HOSPITAL COURSE Hospital Course: 49-year-old female with complicated diverticulitis associated stricture and refractory disease failing maximal medical therapy who underwent laparoscopic low anterior resection with proximal diversion with loop ileostomy. Patient with history of complicated diverticulitis failing maximum medical therapy. Patient underwent preoperative work-up to include colonoscopy as well as necessary anastomotic pneumatic dilation for slight stenosis. She presented this admission for ileostomy takedown. She was also performed for parastomal hernia repair simultaneous. (1) GI - IVF. GI ppx. Anticipated ileus. Opiate sparring analgesia. (2) SURGERY/Wound care - WILL. Packing historic stoma site. (3) Renal/Lytes -repleted potassium, BUN and creatinine within normal limits. Daily laboratory values. (4) Respiratory - O2 as needed; no respiratory compromise. Continue IS. (5) Heme - Continued with DVT ppx. H&H stable. (6) Cardiovascular - hemodynamically acceptable throughout hospital stay. (7) Neuro - Opiate sparring analgesia. Status post tap block. Antispasmodics with Robaxin. Toradol. Patient admitted post-operative. Patient underwent operative intervention as listed in the electronic medical record. Tolerated procedure well for which there was no complication. Postoperatively the patient was managed for postoperative analgesia and resumption of bowel function. Patient had successfully passed trial of void. Tolerated oral intake without any complication. Denied nausea denied vomiting. Was advanced for diet without any complication. Was counseled that given historic ileostomy site, patient would require daily packing with iodoform until resolution. Patient also was planned for removal of Will drain prior to discha rge which remained serosanguineous. Discharge instructions given. Analgesia with oxycodone, robaxin, toradol (po), acetaminophen provided at time of discharge. Patient plan for follow-up and will be notified of pathology once returned. - ALLERGIES Allergies/Adverse Reactions: Allergies Allergy/AdvReac Type Severity Reaction Status Date / Time amoxicillin [Amoxicillin] AdvReac Unknown Anaphylaxis Verified 04/02/20 07:02 Penicillins AdvReac Unknown Anaphylaxis Verified 04/02/20 07:02 - MEDICATIONS Home Medications: Ambulatory Orders Medication Instructions Recorded Confirmed Multivitamin 1 tab PO DAILY 03/19/20 04/02/20 Trazodone HCl 25 - 100 mg PO QPM PRN 03/19/20 04/02/20 Docusate Sodium 100Mg Capsule 100 mg PO BID #60 capsule 04/07/20 [Colace 100Mg Capsule] Gabapentin [Neurontin] 100 mg PO TID 10 Days #30 capsule 04/07/20 Pantoprazole [Protonix] 40 mg PO QDAC #30 tablet 04/07/20 Senna [Senokot] 8.6 mg PO DAILY PRN tablet 04/07/20 hydrOXYzine PAMOATE [Vistaril] 25 mg PO TID PRN #30 capsule 04/07/20 oxyCODONE [Roxicodone] 5 mg PO ONCE PRN #30 tablet 04/07/20 polyethylene glycoL 3350 [Miralax] 17 gm PO DAILY PRN #30 packet 04/07/20 Ketorolac [Toradol] 10 mg PO Q6H #20 tablet 04/08/20 Methocarbamol [Robaxin-750] 750 mg PO Q8HR PRN #30 tablet 04/08/20 - PHYSICAL EXAM AT DISCHARGE General Appearance: positive: No acute distress Eyes Bilateral: positive: Normal inspection, PERRL, EOMI Neck: positive: Nml inspection Respiratory: positive: Chest non-tender, No respiratory distress, Breath sounds nml. negative: Wheezes, Rales, Rhonchi Cardiovascular: positive: Regular rate & rhythm Abdomen: positive: Non-tender, Tenderness, Other (Appropriately tender to palpation. Wound dressed with packing intact. Will drain removed without any complication. Patient tolerated well.). negative: Guarding, Rebound Extremities: positive: Non-tender, Full ROM Neurologic/Psychiatric: positive: Oriented x3, CN's nml (2-12) - LABS Result Diagrams: 04/06/20 05:18 04/06/20 05:18 - FOLLOW UP Follow Up: DISCHARGE INSTRUCTIONS TEMPLATE: No heavy lifting, pushing, or pulling. Stairs are allowed, no strenuous/exertional activities. 5-10lbs weight carrying limit (i.e. gallon of milk) If provided, abdominal binder while out of bed and while ambulating. Call or proceed to clinic/ER for fevers, severe pain, nausea, vomiting, inability to pass flatus/stool, bleeding, wound redness/discharge, weakness, excessively loose stool/diarrhea, or for any other reasonably worrisome symptom or concern. Soft diet, no raw vegetables, avoid high fiber foods. Colace 100mg by mouth twice to three times daily while taking narcotic pain medication. If no bowel movement in 24-48hr, may take 17g Miralax in 8oz water twice daily until bowel movement. May shower, no submersive bathing. Follow up in clinic in 2-4 weeks for wound check and staple removal. No driving while taking narcotic pain medications. Follow up with primary care provider and/or medical subspecialist following discharge as well. Daily wound care with packing to historic ileostomy site. Iodoform with dry sterile gauze top dressing daily."
[2020-04-07 13:49] VITALS: BP 138/92
== END 2020-04-07 14:40 | disposition home health service (06) | DRG 331 ==
LOC: MS2 04-02 06:31
PROVIDERS: ADMIT Surgery; ATTEND Surgery
PROC: 0DBB0ZZ Excision of Ileum, Open Approach (ICD-10-PCS; principal; 2020-04-02 07:30)
DX: Z43.2 Encounter for attention to ileostomy (principal); K43.5 Parastomal hernia without obstruction or gangrene; Z87.19 Personal history of other diseases of the digestive system; E87.6 Hypokalemia
CPT/HCPCS: 36415; 80053; 85025; A9270; J0131; J1170; J1650; J2765; J3490; J7120

== ENCOUNTER 2020-03-29 10:59 | Outpatient (CLI) | payer OTHER ==
[2020-03-29] MEDS ORDERED: IOVERSOL 320 50 ML VIAL ONE (11:10)
[2020-03-29] MEDS ORDERED: IOVERSOL 320 100 ML VIAL IVP ONE (11:11)
--- NOTE | 2020-03-29 13:03 | CT Report ---
PROCEDURE: Abdomen/Pelvis W INDICATIONS: COLOSTOMY STATUS CONTRAST: IV CONTRAST: Optiray 320 ml: 100 PO CONTRAST: Optiray 320 ml50 TECHNIQUE: After the administration of oral and intravenous contrast, 5 mm thick sections acquired from the diap hragms to the symphysis. 5 mm thick coronal and sagittal reformats were acquired. For radiation dos e reduction, the following was used: automated exposure control, adjustment of mA and/or kV accordin g to patient size. COMPARISON: None. FINDINGS: Image quality: Excellent. ABDOMEN: Lung bases: Lung bases are clear. Heart size is normal. Solid organs: Liver and spleen are normal in size and enhancement. Gallbladder negative Biliary sy stem is non dilated. Pancreas enhances normally. No adrenal nodules. Kidneys demonstrate normal si ze and enhancement, without hydronephrosis. Peritoneum and bowel: Right lower quadrant ostomy. Surgical anastomosis also seen in the region of th e distal sigmoid colon. No free fluid or air. Incidental scattered colonic diverticula. Nodes and vessels: No retroperitoneal or mesenteric adenopathy by size criteria. Aorta and inferior vena cava are normal in size. Miscellaneous: No ventral hernias. PELVIS: Genitourinary: Bladder wall thickness is normal. Miscellaneous: No inguinal hernias or adenopathy. Bones: No suspicious bony lesions. No vertebral body compression fractures. IMPRESSION: Postsurgical changes as above. No acute abnormality Reviewed by: Inderjit Fowler MD on 03/29/2020 1:02 PM PDT Approved by: Inderjit Fowler MD on 03/29/2020 1:02 PM PDT Station ID: [id number]
== END 2020-03-29 11:00 | disposition home or self-care (01) ==
LOC: DI 10:59
PROVIDERS: ATTEND Surgery
DX: Z01.812 Encounter for preprocedural laboratory examination (principal); Z93.3 Colostomy status; K57.92 Diverticulitis of intestine, part unspecified, without perforation or abscess without bleeding; Z93.2 Ileostomy status
CPT/HCPCS: 74177; 87635; Q9967

== ENCOUNTER 2021-01-14 10:15 | Emergency (ER) | payer OTHER ==
[2021-01-14] MEDS ORDERED: TETANUS/DIPHTHERIA/PERTUSSIS 0.5 ML SYRINGE IM ONE (10:27)
--- NOTE | 2021-01-14 11:03 | XRAY Report ---
PROCEDURE: Foot 2 View RT INDICATIONS: foot lac (heel) TECHNIQUE: 2 views of the foot were acquired. COMPARISON: None FINDINGS: Bones: No fractures or dislocations. No suspicious bony lesions. Soft tissues: No tibiotalar joint effusion. Achilles tendon appears normal. No radiodense foreign b emma. IMPRESSION: No fracture. No osseous lesion. If there are persistent symptoms or continued clinical concern for pa thology, then repeat plain film radiographs (7-10 days) or advanced imaging (CT, MR, bone scan) shoul d be considered for further evaluation. Reviewed by: Luda Collins MD, PhD on 01/14/2021 11:01 AM PDT Approved by: Luda Collins MD, PhD on 01/14/2021 11:01 AM PDT Station ID: [id number]
[2021-01-14] MEDS ORDERED: BUFFERED LIDOCAINE 10 ML SYRINGE SUBQ STA (11:29)
--- NOTE | 2021-01-14 13:02 | ED Physician Documentation ---
History of Present Illness - Stated complaint Stated Complaint: RT FT INJ - Chief complaint Chief Complaint: Trauma Ext - History obtained from History obtained from: Patient - Additonal information Additional information: 50-year-old woman presents with right foot injury after hitting it on a skateboard yesterday. She has a laceration to her heel measuring 5 cm. This happened around 3 PM and she washed it thoroughly and then decided to come into the emergency department today to have it evaluated. ambulatory without difficulty . Review of Systems Skin: reports: Laceration (s) Musculoskeletal: reports: Extremity pain. 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 HEENT: Other Psych: Depression, Anxiety Musculoskeletal: None Derm: Herpes zoster - Past Surgical History Past Surgical History: Yes General: Bowel surgery, Colonoscopy Ortho: Arthroscopic surgery /RESEARCH ANIMAL ATTENDANT: section, Tubal ligation Derm: Skin grafts - Present Medications Home Medications: Ambulatory Orders Medication Instructions Recorded Confirmed Multivitamin 1 tab PO DAILY 03/19/20 01/14/21 Trazodone HCl 25 - 100 mg PO QPM PRN 03/19/20 01/14/21 - Allergies Allergies/Adverse Reactions: Allergies Allergy/AdvReac Type Severity Reaction Status Date / Time amoxicillin [Amoxicillin] AdvReac Unknown Anaphylaxis Verified 01/14/21 10:24 Penicillins AdvReac Unknown Anaphylaxis Verified 01/14/21 10:24 - Social History Does the pt smoke?: No Smoking Status: Never smoker Does the pt drink ETOH?: Yes Does the pt have substance abuse?: No - Immunizations Immunizations are current?: No Immunizations: TDAP >10years/unknown - POLST Patient has POLST: No POLST Status: Full Code PD ED PE NORMAL - Vitals Vital signs reviewed: Yes - General General: Alert and oriented X 3, No acute distress, Well developed/nourished - HEENT HEENT: Atraumatic, PERRL, EOMI - Derm Derm: Normal color, Warm and dry, Other (5 cm horizontal laceration across the base of the heel not including the Achilles tendon.) Results - Vitals Vitals: Vital Signs - 24 hr 01/14/21 01/14/21 10:22 13:15 Temperature 36.4 C L 37.1 C Heart Rate 74 63 Respiratory 16 18 Rate Blood Pressure 128/90 H 154/91 H O2 Saturation 97 98 Oxygen O2 Source Room air Procedures - Laceration (location) Foot right Length in cm: 5 Wound type: Linear Neurovascular status: Sensory intact, Motor intact Tendon involvement: Tendon intact Anesthesia: Lidocaine 1%, With bicarb Wound preparation: Irrigated copiously NS Skin layer closure: Nylon, Interrupted, Size #-0 - enter number (4), Sutures - enter # (5) Other: Patient tolerated well, No complications, Neurovascular intact, Dressing applied, Tetanus booster given PD MEDICAL DECISION MAKING - ED course ED course: 50-year-old woman presented with laceration to heal that was repaired without incident. No tendon involvement. Patient will follow-up in 14 days for suture removal. Strict return precautions given. Departure - Departure Disposition: 01 Home, Self Care Clinical Impression: Laceration of ankle Condition: Good Instructions: ED Laceration All Comments: You are seen in the emergency department for an ankle injury. The tendon was not involved. You did not have any injuries on x-ray. The cut was repaired with nonabsorbable sutures that need to be taken out in 14 days. Please monitor for any signs of infection. Follow-up with your primary doctor. Return to the emergency department if any new or worsening symptoms or other concerns Forms: Activity restrictions Discharge Date/Time: 01/14/21 13:44
[2021-01-14 13:17] VITALS: BP 154/91
== END 2021-01-14 13:44 | disposition home or self-care (01) ==
LOC: ED 10:15
DX: S91.311A Laceration without foreign body, right foot, initial encounter (principal); W20.8XXA Other cause of strike by thrown, projected or falling object, initial encounter; Y92.512 Supermarket, store or market as the place of occurrence of the external cause; Z23 Encounter for immunization
CPT/HCPCS: 12002; 90471; 99282; 99283

== ENCOUNTER 2021-06-08 12:46 | Outpatient (CLI) | payer OTHER | END 2021-06-08 12:47 | disposition home or self-care (01) | LOC: COV 12:46 | PROVIDERS: ATTEND Family Medicine | DX: R05.9 Cough, unspecified (principal); M79.10 Myalgia, unspecified site; R53.83 Other fatigue; R07.0 Pain in throat; R09.81 Nasal congestion; J34.89 Other specified disorders of nose and nasal sinuses; Z20.822 Contact with and (suspected) exposure to COVID-19 ==

== ENCOUNTER 2022-01-07 06:10 | Emergency (ER) | payer OTHER ==
[2022-01-07 07:19] LABS: BILIRUBIN,URINE NEGATIVE (NEGATIVE); CLARITY,URINE CLEAR (CLEAR); GLUCOSE, URINE (UA) NEGATIVE (NEGATIVE); KETONES,URINE (UA) NEGATIVE (NEGATIVE); LEUKOCYTE ESTERASE, URINE NEGATIVE (NEGATIVE); NITRITE,URINE NEGATIVE (NEGATIVE); OCCULT BLOOD,URINE NEGATIVE (NEGATIVE); PROTEIN,URINE NEGATIVE (NEGATIVE); UROBILINOGEN,URINE 0.2 (NORMAL) E.U./dL (NORMAL)
[2022-01-07 08:07] LABS: BASOPHILS % (AUTO) 0.6 %; EOSINOPHILS # (AUTO) 0.5 10^3/uL (0.0-0.7); EOSINOPHILS % (AUTO) 6.7 %; HCT - HEMATOCRIT 44.3 % (37.0-47.0); HGB - HEMOGLOBIN 15.4 g/dL (12.0-16.0); LYMPHOCYTES # (AUTO) 1.6 10^3/uL (1.5-3.5); LYMPHOCYTES % (AUTO) 24.1 %; MEAN CORPUSCULAR HEMOGLOBIN 34.8 pg (27.0-31.0); MEAN CORPUSCULAR HGB CONC 34.8 g/dL (32.0-36.0); MEAN CORPUSCULAR VOLUME 100.2 fL (81.0-99.0); MEAN PLATELET VOLUME 9.3 fL (7.9-10.8); MONOCYTES # (AUTO) 0.5 10^3/uL (0.0-1.0); MONOCYTES % (AUTO) 7.7 %; NEUTROPHILS # (AUTO) 4.1 10^3/uL (1.5-6.6); NEUTROPHILS % (AUTO) 60.8 %; PLT - PLATELET COUNT 203 10^3/uL (130-450); RED BLOOD COUNT 4.42 10^6/uL (4.20-5.40); RED CELL DISTRIBUTION WIDTH 12.2 % (12.0-15.0); WHITE BLOOD COUNT 6.7 x10^3/uL (4.8-10.8)
[2022-01-07] MEDS ORDERED: IOPAMIDOL-300 100 ML VIAL ONE (08:15)
[2022-01-07 08:18] LABS: ALBUMIN 4.1 g/dL (3.2-5.5); ALBUMIN/GLOBULIN RATIO 1.1 (1.0-2.2); BILIRUBIN,TOTAL 0.3 mg/dL (0.2-1.0); CALCIUM 9.7 mg/dL (8.5-10.3); CREATININE 0.7 mg/dL (0.4-1.0); POTASSIUM 3.5 mmol/L (3.5-5.0)
[2022-01-07 08:59] LABS: CORONAVIRUS 229E-RESP PCR NOT DETECTED; CORONAVIRUS HKU1-RESP PCR NOT DETECTED; CORONAVIRUS NL63-RESP PCR NOT DETECTED; CORONAVIRUS OC43-RESP PCR NOT DETECTED; SARS-CoV-2 -RESP PCR PANEL DETECTED
[2022-01-07 09:00] LABS: B. PARAPERTUSSIS- RESP PCR PAN NOT DETECTED; B. PERTUSSIS- RESP PCR PANEL NOT DETECTED; C. PNEUMONIAE- RESP PCR PANEL NOT DETECTED; HUMAN METAPNEUMOVIRUS NOT DETECTED; INFLUENZA A- RESP PCR PANEL NOT DETECTED; INFLUENZA B - RESP PCR PANEL NOT DETECTED; M. PNEUMONIAE- RESP PCR PANEL NOT DETECTED; PARAINFLUENZA VIRUS 1 NOT DETECTED; PARAINFLUENZA VIRUS 2 NOT DETECTED; PARAINFLUENZA VIRUS 3 NOT DETECTED; PARAINFLUENZA VIRUS 4 NOT DETECTED; RHINOVIRUS/ENTEROVIRUS NOT DETECTED; RSV- RESP PCR PANEL NOT DETECTED
--- NOTE | 2022-01-07 09:05 | ED Physician Documentation ---
PD HPI ABD PAIN - Stated complaint Stated Complaint: HIP/BACK/LEG PAIN - Chief complaint Chief Complaint: Abd Pain - History obtained from History obtained from: Patient - History of Present Illness Timing - onset: How many days ago (3) Timing - duration: Days (3) Timing - details: Gradual onset, Still present Quality: Aching, Pain Location: Suprapubic Radiation: Other (left and right anterior thighs) Improved by: Laying still Worsened by: Other (standing and walking) Associated symptoms: Fever, Other (suprapubic pain and pain in the illiostomy site.). No: Nausea, Vomiting, Hematemesis, Diarrhea, Constipation, Melena, Hematochezia, Dysuria Similar symptoms before: Has not had sx before Recently seen: Not recently seen - Additional information Additional information: 51-year-old female began to have a fever 3 days ago with some other odd symptoms to include some suprapubic pain some pain in her prior ileostomy site and radiation of pain into her anterior thighs. She states pain is worse when she is standing. She has been able to urinate she does not have urinary symptoms she does have a cough she does have congestion. She tested negative for COVID with a home test 3 days ago. Review of Systems Constitutional: reports: Fever, Chills, Myalgias, Fatigue Eyes: denies: Loss of vision Ears: denies: Ear pain Nose: reports: Rhinorrhea / runny nose, Congestion Throat: denies: Sore throat Cardiac: denies: Chest pain / pressure, Palpitations Respiratory: reports: Cough. denies: Dyspnea GI: reports: Abdominal Pain. denies: Nausea, Vomiting, Constipation, Diarrhea : denies: Dysuria, Frequency Skin: denies: Rash Musculoskeletal: reports: Back pain, Extremity pain. 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 HEENT: Other Psych: Depression, Anxiety Musculoskeletal: None Derm: Herpes zoster - Past Surgical History Past Surgical History: Yes General: Bowel surgery, Colonoscopy Ortho: Arthroscopic surgery /PROPULSION GENERATOR REPAIRER: section, Tubal ligation Derm: Skin grafts - Present Medications Home Medications: Ambulatory Orders Medication Instructions Recorded Confirmed No Known Home Medications 01/07/22 01/07/22 - Allergies Allergies/Adverse Reactions: Allergies Allergy/AdvReac Type Severity Reaction Status Date / Time amoxicillin [Amoxicillin] AdvReac Unknown Anaphylaxis Verified 01/07/22 06:27 Penicillins AdvReac Unknown Anaphylaxis Verified 01/07/22 06:27 - Social History Does the pt smoke?: No Smoking Status: Never smoker Does the pt drink ETOH?: Yes Does the pt have substance abuse?: No - Immunizations Immunizations are current?: No Immunizations: TDAP >10years/unknown - POLST Patient has POLST: No POLST Status: Full Code PD ED PE NORMAL - Vitals Vital signs reviewed: Yes (Hypertensive) - General General: Alert and oriented X 3, No acute distress, Well developed/nourished - HEENT HEENT: Atraumatic, PERRL, EOMI, Ears normal, Moist mucous membranes, Pharynx benign, Dentition benign - Neck Neck: Supple, no meningeal sign, No bony TTP - Cardiac Cardiac: RRR, No murmur - Respiratory Respiratory: No respiratory distress, Clear bilaterally - Abdomen Abdomen: Normal bowel sounds, Soft, Non tender, Non distended, No organomegaly - Back Back: No CVA TTP, No spinal TTP - Derm Derm: Normal color, Warm and dry, No rash - Extremities Extremities: No deformity, No edema - Neuro Neuro: Alert and oriented X 3, repair miller 2-12 intact, No motor deficit, No sensory deficit, Normal speech Eye Opening: Spontaneous Motor: Obeys Commands Verbal: Oriented GCS Score: 15 - Psych Psych: Normal mood, Normal affect Results - Vitals Vitals: Vital Signs - 24 hr 01/07/22 06:16 Temperature 36.4 C L Heart Rate 68 Respiratory 20 Rate Blood Pressure 146/103 H O2 Saturation 99 Oxygen O2 Source Room air - Labs Labs: Laboratory Tests 01/07/22 01/07/22 01/07/22 07:02 07:56 07:56 WBC 6.7 RBC 4.42 Hgb 15.4 Hct 44.3 MCV 100.2 H MCH 34.8 H MCHC 34.8 RDW 12.2 Plt Count 203 MPV 9.3 Neut # (Auto) 4.1 Lymph # (Auto) 1.6 [place] # (Auto) 0.5 Eos # (Auto) 0.5 Baso # (Auto) 0.0 Absolute Nucleated RBC 0.00 Nucleated RBC % 0.0 Sodium 140 Potassium 3.5 Chloride 106 Carbon Dioxide 23 Anion Gap 11.0 BUN 18 Creatinine 0.7 Estimated GFR (MDRD) 88 L Glucose 111 H Lactic Acid Calcium 9.7 Total Bilirubin 0.3 AST 26 ALT 34 Alkaline Phosphatase 66 Total Protein 8.0 Albumin 4.1 Globulin 3.9 Albumin/Globulin Ratio 1.1 Lipase 39 Urine Color YELLOW Urine Clarity CLEAR Urine pH 6.0 Ur Specific [place] >=1.030 H Urine Protein NEGATIVE Urine Glucose (UA) NEGATIVE Urine Ketones NEGATIVE Urine Occult Blood NEGATIVE Urine Nitrite NEGATIVE Urine Bilirubin NEGATIVE Urine Urobilinogen 0.2 (NORMAL) Ur Leukocyte Esterase NEGATIVE Ur Microscopic Review NOT INDICATED Urine Culture Comments NOT INDICATED Nasal Adenovirus (PCR) Nasal B. parapertussis DNA (PCR) Nasal Coronavir 229E PCR Nasal Coronavir HKU1 PCR Nasal Coronavir NL63 PCR Nasal Coronavir OC43 PCR Nasal Enterovir/Rhinovir PCR Nasal Influenza B PCR Nasal Influenza A PCR Nasal Parainfluen 1 PCR Nasal Parainfluen 2 PCR Nasal Parainfluen 3 PCR Nasal Parainfluen 4 PCR Nasal RSV (PCR) Nasal B.pertussis DNA PCR Nasal C.pneumoniae (PCR) [place] Human Metapneumo PCR Nasal M.pneumoniae (PCR) Nasal SARS-CoV-2 (PCR) 01/07/22 01/07/22 07:56 08:00 WBC RBC Hgb Hct MCV MCH MCHC RDW Plt Count MPV Neut # (Auto) Lymph # (Auto) [place] # (Auto) Eos # (Auto) Baso # (Auto) Absolute Nucleated RBC Nucleated RBC % Sodium Potassium Chloride Carbon Dioxide Anion Gap BUN Creatinine Estimated GFR (MDRD) Glucose Lactic Acid 1.4 Calcium Total Bilirubin AST ALT Alkaline Phosphatase Total Protein Albumin Globulin Albumin/Globulin Ratio Lipase Urine Color Urine Clarity Urine pH Ur Specific [place] Urine Protein Urine Glucose (UA) Urine Ketones Urine Occult Blood Urine Nitrite Urine Bilirubin Urine Urobilinogen Ur Leukocyte Esterase Ur Microscopic Review Urine Culture Comments Nasal Adenovirus (PCR) NOT DETECTED Nasal B. parapertussis DNA (PCR) NOT DETECTED Nasal Coronavir 229E PCR NOT DETECTED Nasal Coronavir HKU1 PCR NOT DETECTED Nasal Coronavir NL63 PCR NOT DETECTED Nasal Coronavir OC43 PCR NOT DETECTED Nasal Enterovir/Rhinovir PCR NOT DETECTED Nasal Influenza B PCR NOT DETECTED Nasal Influenza A PCR NOT DETECTED Nasal Parainfluen 1 PCR NOT DETECTED Nasal Parainfluen 2 PCR NOT DETECTED Nasal Parainfluen 3 PCR NOT DETECTED Nasal Parainfluen 4 PCR NOT DETECTED Nasal RSV (PCR) NOT DETECTED Nasal B.pertussis DNA PCR NOT DETECTED Nasal C.pneumoniae (PCR) NOT DETECTED [place] Human Metapneumo PCR NOT DETECTED Nasal M.pneumoniae (PCR) NOT DETECTED Nasal SARS-CoV-2 (PCR) DETECTED A - Rads (name of study) CT ab/pel with Radiology: Prelim report reviewed (Impression: 1. No acute process normal appendix. Uterine fibroid tender gallbladder sludge versus calculi with no evidence of cholecystitis.), EMP read indepedently, See rad report PD MEDICAL DECISION MAKING - ED course Complexity details: reviewed results, re-evaluated patient, considered differential, d/w patient ED course: 51-year-old female who has had a prior diverticular abscess and diverting ileostomy has had repair of all that and it has been more than 2 years. Today she presents to the emergency department with pain in the suprapubic area radiating down both of her thighs and feeling like her pelvis is shattering each time she takes a step. She did develop a fever 5 days ago she tested negative for COVID the day following. Today she tested positive for COVID. I did suspect the patient had COVID by her symptoms and we did do a CT of her abdomen and pelvis to rule out any pathology contributing. This test looked completely normal. I suspect the patient is having an id reaction to the inflammation of the COVID affecting her most recent surgical site. Departure - Departure Disposition: 01 Home, Self Care Clinical Impression: COVID Condition: Stable Instructions: COVID-19 [facility] Department of Health, Flu and Cold: Nutrition, Prevention and Treatment Tips Follow-Up: Destini Mcgill ARNP [Primary Care Provider] - Comments: Cassandra, today you have tested positive for COVID. I suspect the symptoms you are having in your pelvis are related to the inflammation from the viral infection. We did check the internal components and they all look normal. Be certain to hydrate and use Tylenol and Advil as needed for symptom control. Expect to have improvement in your symptoms over the next week. Quarantine at home until you have tested negative.
[2022-01-07] MEDS ORDERED: SODIUM CHLORIDE 0.9% 1,000 ML IV STA (09:31)
--- NOTE | 2022-01-07 09:34 | CT Report ---
PROCEDURE: Abdomen/Pelvis W INDICATIONS: suprapubic pain CONTRAST: IV CONTRAST: Isovue 300 ml: 100 PO CONTRAST: *NO PO CONTRAST TECHNIQUE: After the administration of IV contrast, 5 mm thick sections acquired from the diaphragms to the symp hysis. 5 mm thick coronal and sagittal reformats were acquired. For radiation dose reduction, the f ollowing was used: automated exposure control, adjustment of mA and/or kV according to patient size. COMPARISON: 03/29/2020 CT examination FINDINGS: Image quality: Excellent. ABDOMEN: Lung bases: Mild bibasilar scarring is present, as before. Lung bases are otherwise clear. Heart si ze is normal. Solid organs: Liver and spleen are normal in size and enhancement. Gallbladder is partially contrac wojciech and demonstrates high density material within its lumen Biliary system is non dilated. Pancreas enhances normally. No adrenal nodules. Kidneys demonstrate normal size and enhancement, without hy dronephrosis. Peritoneum and bowel: Bowel loops demonstrate normal wall thickness and caliber. No free fluid or a ir. Sigmoid anastomotic clips. Normal appendix. Nodes and vessels: No retroperitoneal or mesenteric adenopathy by size criteria. Aorta and inferior vena cava are normal in size. Retroaortic left renal vein. Miscellaneous: No ventral hernias. PELVIS: Genitourinary: Bladder wall thickness is normal. No change in 13 mm exophytic mass protruding anter iorly from the uterine fundus. Miscellaneous: No inguinal hernias or adenopathy. Bones: No suspicious bony lesions. No vertebral body compression fractures. IMPRESSION: 1. No acute process. 2. Normal appendix. 3. Uterine fibroid. 4. Gallbladder sludge versus calculi with no evidence of cholecystitis. Reviewed by: Parul Lei MD on 01/07/2022 9:32 AM PDT Approved by: Parul Lei MD on 01/07/2022 9:32 AM PDT Station ID: [id number]
[2022-01-07 09:37] VITALS: BP 131/104
[2022-01-07] MEDS ORDERED: IOPAMIDOL-300 100 ML VIAL IVP ONE (10:40)
== END 2022-01-07 10:02 | disposition home or self-care (01) ==
LOC: ED 06:10
DX: U07.1 COVID-19 (principal)
CPT/HCPCS: 36415; 80053; 81001; 81003; 83605; 83690; 85025; 87040; 87086; 87633; 99282; 99284

== ENCOUNTER 2022-12-05 09:04 | Emergency (ER) | payer OTHER ==
--- NOTE | 2022-12-05 10:05 | ED Physician Documentation ---
PD HPI BACK PAIN - Stated complaint Stated Complaint: RT SIDE BACK PX - Chief complaint Chief Complaint: Back Pain - History obtained from History obtained from: Patient - History of Present Illness Timing - onset: Yesterday Timing - duration: Days (1) Timing - details: Abrupt onset, Still present Location: Upper (lower scapular area. Hurts for breathing and rasing arms. Not hurting for rotational movement of shoulder.), Right Quality: Pain, Spasm, Sharp Associated symptoms: No: Fever, Weakness, Numbness Improves with: Rest Worsened by: Movement, Other (deep breathing and cough). No: Palpation Contributing factors: Twisting (she was pulling heavy box by a handhold and the hold tore, causing her to lurch forward and abrupt flexion of arm at shoulder. 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 HEENT: Other Psych: Depression, Anxiety Musculoskeletal: None Derm: Herpes zoster - Past Surgical History Past Surgical History: Yes General: Bowel surgery, Colonoscopy Ortho: Arthroscopic surgery /PACK OUT OPERATOR: section, Tubal ligation Derm: Skin grafts - Present Medications Home Medications: Ambulatory Orders Medication Instructions Recorded Confirmed HYDROcod/ACETAM 5/325 [Broad [place] 5/325] 1 ea PO Q6H PRN #18 tablet 12/05/22 Multivitamin 1 each PO DAILY 12/05/22 12/05/22 tiZANidine [Zanaflex] 4 mg PO Q8H PRN #20 tablet 12/05/22 - Allergies Allergies/Adverse Reactions: Allergies Allergy/AdvReac Type Severity Reaction Status Date / Time amoxicillin [Amoxicillin] AdvReac Unknown Anaphylaxis Verified 12/05/22 09:17 Penicillins AdvReac Unknown Anaphylaxis Verified 12/05/22 09:17 - Social History Does the pt smoke?: No Smoking Status: Never smoker Does the pt drink ETOH?: Yes Does the pt have substance abuse?: No - Immunizations Immunizations are current?: No Immunizations: TDAP >10years/unknown - POLST Patient has POLST: No POLST Status: Full Code PD ED PE NORMAL - Vitals Vital signs reviewed: Yes - General General: Alert and oriented X 3, Well developed/nourished - Neck Neck: Supple, no meningeal sign, No bony TTP, No adenopathy - Cardiac Cardiac: RRR, No murmur - Respiratory Respiratory: Clear bilaterally - Back Back: No spinal TTP, Other (right lower scapular area pain without tenderness to palpation. Presume muscle underneath scapula. ) - Derm Derm: Normal color, Warm and dry - Extremities Extremities: Normal ROM s pain (the shoulder joint itself does not hurt for simple ROM. ) - Neuro Neuro: No motor deficit, No sensory deficit Results - Vitals Vitals: Vital Signs - 24 hr 12/05/22 11:01 Heart Rate 66 Respiratory 13 Rate Blood Pressure 137/98 H O2 Saturation 100 Oxygen O2 Source Room air - Rads (name of study) chest xray Relevant Findings:: Prelim report reviewed, EMP independent interpretation of test (no PTX,lung lesions, nor rib abnormality. ), See rad report PD Medical Decision Making - ED course Complexity details: reviewed results (xray normal for ribs/lungs. ), considered differential (shoulder pain after pulling mechanism with abrupt release of what she was pulling. Her symptoms sound more like strain of the levator scapulae rather than rotator cuff muscles. no winging of the scapula. I don't think sling will really help as ROM at the shoulder joint itself is not hurting. ), d/w patient Departure - Departure Disposition: 01 Home, Self Care Clinical Impression: Muscle strain of right scapular region Qualifiers: Encounter type: initial encounter Qualified Code(s): S46.911A - Strain of unspecified muscle, fascia and tendon at shoulder and upper arm level, right arm, initial encounter Condition: Stable Record reviewed to determine appropriate education?: Yes Prescriptions: HYDROcod/ACETAM 5/325 [[place] 5/325] 1 ea PO Q6H PRN #18 tablet PRN Reason: Pain tiZANidine [Zanaflex] 4 mg PO Q8H PRN #20 tablet PRN Reason: Spasms Comments: Your chest x-ray appears normal with no signs of lung abnormality nor rib fractures or displacement. Presume the scapular muscle strain. I would suggest some regular anti-inflammatory such as ibuprofen or naproxen 2 to 3 tablets twice daily for inflammation and pain. To that add tizanidine muscle relaxant for spasms. To that add Tylenol every 4-6 hours if needed for pain or hydrocodone/acetaminophen if needed for worse pain. No push pull, carrying, lifting or overhead reaching for probably 3 days and progress activity as able after that. I sent your prescriptions to the [facility] pharmacy here in [place]. I am prescribing a short course of narcotic pain medication for you. These are potentially dangerous and addictive medications that should be used carefully. These medications may constipate you. Take an inem-wpr-adtimvi stool softener such as docusate twice daily with plenty of water while taking these m edications. If you go 24 hours without a bowel movement, take [id number] MiraLAX, per package instructions. Do not drink or drive while taking these medications. If you received narcotic or sedating medications while in the emergency department do not drive for 24 hours. Store this medication in a safe, secure place and out of reach of children. It is a violation of federal law to give or sell this medication to another person or to use in a manner other than prescribed. The ED will not refill narcotic prescriptions, including prescriptions lost or stolen. You can dispose of unwanted medications at the [facility] [employer] [facility] [facility] office or at several pharmacies such as [facility]. Forms: Activity restrictions Discharge Date/Time: 12/05/22 11:31
[2022-12-05] MEDS ORDERED: ACETAMINOPHEN 325 MG TABLET PO STA (10:13)
[2022-12-05] MEDS ORDERED: KETOROLAC 30 MG/ML VIAL IM STA (10:13)
[2022-12-05] MEDS ORDERED: methocarbamoL 500 MG TABLET PO STA (10:14)
--- NOTE | 2022-12-05 10:44 | XRAY Report ---
PROCEDURE: Chest 2 View X-Ray INDICATIONS: right scapular pain with pulling; dyspnea TECHNIQUE: 2 views of the chest were acquired. COMPARISON: None. FINDINGS: Surgical changes and devices: None. Lungs and pleura: No pleural effusions or pneumothorax. Lungs are clear. Mediastinum: Mediastinal contours appear normal. Heart size is normal. Bones and chest wall: No suspicious bony lesions. Overlying soft tissues appear unremarkable. IMPRESSION: No acute cardiopulmonary process. Unremarkable scapula. Reviewed by: Jaleel Nicholas on 12/05/2022 10:42 AM PDT Approved by: Jaleel Nicholas on 12/05/2022 10:42 AM PDT Station ID: [id number]
[2022-12-05 11:01] VITALS: BP 137/98
== END 2022-12-05 11:31 | disposition home or self-care (01) ==
LOC: ED 09:04
DX: S46.911A Strain of unspecified muscle, fascia and tendon at shoulder and upper arm level, right arm, initial encounter (principal); X58.XXXA Exposure to other specified factors, initial encounter
CPT/HCPCS: 71046; 96372; 99283; 99284; A9270

== ENCOUNTER 2023-02-06 13:46 | Outpatient (CLI) | payer OTHER ==
--- NOTE | 2023-02-06 16:39 | Ultrasound Report ---
PROCEDURE: Bladder INDICATIONS: LOWER ABD PELVIC PAIN, NOCTURIA TECHNIQUE: Real-time scanning was performed of the bladder, with image documentation. COMPARISON: CT abdomen and pelvis with contrast dated 01/07/2022. FINDINGS: Bladder: Pre-void bladder volume is 186.0 mL. Post-void residual is 0 mL. Pre-void images demonstr ate no intraluminal masses or stones. On pre-void images, bilateral ureteral jets are noted with col or Doppler interrogation. (Of note, ureteral jets may not be detectable in up to 25% of cases due to insufficient differences in specific gravity between ureteral and bladder urine). Miscellaneous: No free pelvic fluid. IMPRESSION: Unremarkable bladder ultrasound. No postvoid residual. Reviewed by: Hero Gregory MD on 02/06/2023 4:37 PM PDT Approved by: Hero Gregory MD on 02/06/2023 4:37 PM PDT Station ID: [id number]
--- NOTE | 2023-02-06 16:41 | Ultrasound Report ---
PROCEDURE: Pelvic w/Transvaginal INDICATIONS: LOWER ABD PELVIC PAIN, NOCTURIA TECHNIQUE: Real-time scanning was performed of the pelvic organs, with image documentation. Additional endovagi nal scanning was necessary due to incomplete visualization of the adnexal and endometrial structures by transabdominal scanning. COMPARISON: Bladder ultrasound from today, CT abdomen and pelvis with contrast dated 01/17/2022 FINDINGS: Uterus: Uterus is anteverted and normal in size at 7.2 x 3.0 x 4.2 cm. The myometrium is heterogene ous. The endometrium measures 4.9 mm in combined thickness. There is a fundal subserosal fibroid me asuring 1.0 x 1.1 x 1.3 cm Ovaries: The right ovary measures 1.6 x 1.1 x 1.0 cm, with a calculated ovarian volume of 0.9 cc. Th e right ovary has a normal postmenopausal appearance. The left ovary is not visualized, possibly seco ndary to inhalational change or overlying bowel gas. Other: No pathologic free abdominal or pelvic fluid. IMPRESSION: Incidental small fundal subserosal fibroid. Otherwise unremarkable study. Reviewed by: Hero Gregory MD on 02/06/2023 4:40 PM PDT Approved by: Hero Gregory MD on 02/06/2023 4:40 PM PDT Station ID: [id number]
== END 2023-02-06 13:47 | disposition home or self-care (01) ==
LOC: DI 13:46
PROVIDERS: ATTEND Physician Assistant
DX: R10.30 Lower abdominal pain, unspecified (principal); R10.2 Pelvic and perineal pain; R35.1 Nocturia

== ENCOUNTER 2023-02-06 13:48 | Outpatient (CLI) | payer OTHER ==
--- NOTE | 2023-02-07 09:59 | Mammography Report ---
BILATERAL DIGITAL SCREENING MAMMOGRAM 3D/2D: 02/06/2023 CLINICAL: Baseline exam. Routine screening. No prior exams were available for comparison. There are scattered areas of fibroglandular density in both breasts (category b / 25%-50% glandular t issue). No significant masses, calcifications, or other findings are seen in either breast. IMPRESSION: NEGATIVE There is no mammographic evidence of malignancy. A 1 year screening mammogram is recommended. Based on the Tyrer Cuzick model (a risk assessment model) the patients lifetime risk is 10.4% and he r 10 year risk is 2.8%. According to the ACR, ACS, and NCCN guidelines, an annual breast MRI exam tor ng with mammogram is recommended if the patients lifetime risk is 20% or greater. This exam was interpreted at Station ID: [id number]. NOTE: For mammograms, a report in lay terms will be sent to the patient. Approximately 15% of breast malignancies will not be visualized mammographically. In the management of a palpable breast mass, a negative mammogram must not discourage biopsy of a clinically suspicious lesion. Electronically Signed By: Mariano [email or web address]:02/07/2023 09:15:14 letter sent: No_Letter ACR BI-RADS Category 1: Negative 3341F PARENCHYMAL PATTERN: (A) - The breast(s) demonstrate(s) scattered fibroglandular densities. BI-RADS CATEGORY: (1) - 1 Mammogram [id number] 1 year screening LATERALITY: (B)
== END 2023-02-06 13:49 | disposition home or self-care (01) ==
LOC: DI 13:48
PROVIDERS: ATTEND Physician Assistant
DX: Z12.31 Encounter for screening mammogram for malignant neoplasm of breast (principal)